=== PATIENT | male | born 1980 | race Caucasian/White ===

== ENCOUNTER 2018-08-30 21:41 | Emergency (ER) | payer BC ==
[~2018-08-30] VITALS: Ht 193 cm; Wt 108.9 kg
--- OUTSIDE RECORDS SUMMARY | 2018-08-30 21:44 | XMS REPORT ---
Author Author [facility] Address Unknown Phone Unavailable Care Team Providers Care Information Technology Account Manager Name Role Phone DR MUMTAZ COLUNGA Unavailable Unavailable CALI CORTEZ Unavailable Unavailable PROVIDER, [facility] Unavailable Unavailable ANGY KAUR Unavailable Unavailable ERICK BRADLEY Unavailable Unavailable Problems This patient has no known problems. Allergies, Adverse Reactions, Alerts This patient has no known allergies or adverse reactions. Medications This patient has no known medications. Encounters Start Date/Time End Date/Time Encounter Type Admission Type Attending Clinicians Care Facility Care Department Encounter ID 2018-04-01 11:35:00 2018-04-01 12:20:00 Outpatient MUMTAZ RAE [facility] [id number] 2018-01-20 00:00:00 2018-01-21 00:00:00 Outpatient [facility] [id number] 2017-07-23 00:00:00 2017-07-23 00:00:00 Outpatient [facility] [id number] Results Test Description Test Time Test Comments Text Results Atomic Results Result Comments URINALYSIS W/O MICROSCOPICOW 2018-04-01 12:24:00 COLOR (test code=COLU) Yellow YELLOW CLARITY (test code=CLA) Clear CLEAR GLUCOSE UR (test code=UA GLUCOSE) Negative NEGATIVE BILI UR (test code=BILE) Negative NEGATIVE KETONES UR (test code=EUNICE) Trace NEGATIVE SP GRAVITY (test code=SPGR) 1.025 1.005-1.030 PH UR (test code=PH) 6.0 4.5-8.0 PROTEIN UR (test code=PU) Negative NEGATIVE NITRITE UR (test code=NITRITE) Negative NEGATIVE UROBIL UR (test code=GUROQ) 0.2 E.U./dL UROBIL UR (test code=GUROQC) UROBILINOGEN REFERENCE RANGE 0.2 - 1.0 EU/dL BLOOD UR (test code=UA BLOOD) Negative NEGATIVE LEUK ES UR (test code=LEUK) Negative NEGATIVE CHEM8+ i-STAT OW2018-04-01 12:16:00* Test Item Value Reference Range Comments SODIUM (test code=JIM) 140 mmol/L 138-146 POTASSIUM (test code=KI) 4.3 mmol/L 3.5-4.9 CHLORIDE (test code=CLI) 105 mmol/L 98-109 CA IONIZED (test code=ICAI) 1.27 mmol/L 1.12-1.32 GLUCOSE (test code=GLUI) 180 mg/dL 75-100 TCO2 (test code=TCO2) 24 mmol/L 24-29 BUN (test code=BUN1) 18 mg/dL 8-26 CREATININE (test code=CREAI) 1.0 mg/dL 0.6-1.3 ANION GAP (test code=GANG) 16.0 mmol/L HGB (test code=MHB) 13.9 g/dL 12.0-17.0 HCT (test code=MHCT) 41.0 % 38.0-51.0 CBC (INCLUDES AUTOMATED DIFFERENTIAL) *2018-04-01 12:14:00* Test Item Value Reference Range Comments WBC (test code=WBC) 6.2 10\S\3/uL 4.5-11.0 RBC (test code=RBC) 4.74 10\S\6/uL 4.30-5.70 HGB (test code=HBG) 14.1 g/dL 14.0-18.0 HCT (test code=HCT) 42.7 % 35.0-46.0 MCV (test code=MCV) 90.0 fL 80.0-94.0 MCH (test code=MCH) 29.7 pg 27.0-31.0 MCHC (test code=MCHC) 33.0 g/dL 32.0-36.0 RDW (test code=RDW) 13.5 % 11.5-14.5 PLT (test code=PLT) 268 10\S\3/uL 130-400 MPV (test code=OMPV) 7.8 fL 6.2-10.2 NEUTROP # (test code=NE#) 4.0 10\S\3/uL 2.0-8.0 LYMPH # (test code=LY#) 1.4 10\S\3/uL 1.2-4.0 MID # (test code=GMID#) 0.8 10\S\3/uL 0.0-1.1 GRA % (test code=GRA%) 64.5 % 35.0-73.0 LYMPH % (test code=GLY%) 22.7 % 20.0-55.0 MID % (test code=GMID%) 12.8 % 0.0-10.0 CT ABDOMEN AND PELVIS W/O CONTRAST *OW*2018-04-01 12:07:30CT abdomen and pelvis with contrastLocation Code: [id number] HISTORY:Right flank painCOMPARISON: NoneTechnique: Helical CT of the abdomen and pelvis was performed following theadministration of intravenous contrast. Thin section axial, sagittal andcoronal images were obtained. Automatic exposure control was utilized. T otalDLP: 1314.09 mGycmFINDINGS:The lung bases are clear. Postsurgical changes ar e apparent partial right nephrectomy are noted. There isno adjacent fluid collec tion or hematoma. The unenhanced liver, gallbladder,adrenal glands, left kidney, pancreas, and spleen are unremarkable.The unopacified loops of bowel demonstrate no focal thickening or dilatation.The appendix is visualized and is normal. T here is no free peritoneal air orfluid. The abdominal aorta is normal in caliber and contour. There is noretroperitoneal mass or fluid collection. The urinary bladder is unremarkable.There is no pelvic mass or fluid collection. The bones, skin, and surrounding soft tissues are unremarkable.IMPRESSION:1. Postsurgical c hanges along the lateral cortex of the right kidney with noevidence of complicat ion.2. Otherwise, no acute intra-abdominal or pelvic abnormality.Toxicology 2017-06-07 11:31:00* Test Item Value Reference Range Comments Toxicology (test code=LEONILA) Not Detected NotDetected Toxicology (test code=PCP) Not Detected NotDetected Toxicology (test code=COCN) Detected NotDetected Toxicology (test code=METHAMPU) Not Detected NotDetected Toxicology (test code=OPIA) Not Detected NotDetected Toxicology (test code=AMPHU) Not Detected NotDetected Toxicology (test code=CAREY) Not Detected NotDetected Toxicology (test code=TRICY) Not Detected NotDetected Toxicology (test code=MTD) Not Detected NotDetected Toxicology (test code=CHRISTIANE) Not Detected NotDetected Toxicology (test code=OXYCOD) Not Detected NotDetected Toxicology (test code=PPX) Not Detected NotDetected Toxicology (test code=MTCUTOFF) The [employer] Profile- V Panel for Qualitative Drugs ofAbuse assays are for presumptive screening testing only.The drug class and detection limits are as follows:Drug Class Detection LimitAmphetamine 500 ng/mL*Barbiturates 200 ng/mLBenzodiazepines 150 ng/mL*Cocaine 150 ng/mL*Methamphetamine 500 ng/mL*Methadone 200 ng/mL*Opiates 100 ng/mL*Oxycodone 100 ng/mLPCP 25 ng/mLPropoxyphene 300 ng/mLTricyclic Antidepressants 300 ng/mLCannabinoids (THC) 50 ng/mLTests which yield a presumptive positive result must betested using a more specific alternate chemical method inorder to obtain a confirmed analytical result. Additionalconfirmation and identification may be ordered on a routinebasis, if desired. Presumptive positive urines are held fortwo weeks. What drug is suspected? cocaineUrine Source: Urine [id number] 09:28:00* Test Item Value Reference Range Comments Chemistry (test code=CHOL) 182 mg/dl < 200 Desired Chemistry (test code=TRIG) 113 mg/dL Less than 150 Chemistry (test code=HDL) 42 mg/dL >60 Neg Risk Adult HDL levels in terms of risk for Coronary Heart Disease > or Equal to 60 mg/dL Negative Risk < 40 mg/dL HIGH Risk Chemistry (test code=LDL) 117 mg/dL Levels in terms of risk for coronary heart disease: Desirable: Less than 130 mg/dL Borderline High Risk: 130 - 159 mg/dL High Risk: Greater than 160 mg/dL Chemistry (test code=CRISK) 4.3 Less than 4.5 Adult levels in terms of risk for Coronary Heart Disease: Dangerous Level: Greater than 14.3 High: 6.7 - 14.3 Average: 4.0 - 6.7 Below average: 2.7 - 4.0 Protection probable: Less than 2.7 [id number] 07:38:00* Test Item Value Reference Range Comments Chemistry (test code=TROPI-T) 0.027 ng/mL < 0.028 Reference Range 0.00 - 0.028 ng/mL Negative 0.029 - 0.29 ng/mL Indeterminate Greater or Equal to 0.3 ng/mL Strongly suggests [place] [id number] 05:03:00* Test Item Value Reference Range Comments Chemistry (test code=TROPI-T) 0.031 ng/mL < 0.028 Reference Range 0.00 - 0.028 ng/mL Negative 0.029 - 0.29 ng/mL Indeterminate Greater or Equal to 0.3 ng/mL Strongly suggests [place] Chemistry - BNP, HgbA1c, [id number] 02:00:00* Test Item Value Reference Range Comments Chemistry - BNP, HgbA1c, PTHi (test code=BNP) 89.9 pg/mL 0-100 [id number] 01:46:00* Test Item Value Reference Range Comments Chemistry (test code=NA-T) 138 mmol/L 136-145 Chemistry (test code=K-T) 4.2 mmol/L 3.5-5.1 Chemistry (test code=CL) 107 mmol/L 98-107 Chemistry (test code=CO2) 22 mmol/L 22-29 Chemistry (test code=ANGP) 13 mmol/L 10-20 Chemistry (test code=BUN) 7 mg/dL 8.9-20.6 Chemistry (test code=CREATT) 1.06 mg/dL 0.6-1.3 Chemistry (test code=EGFRMDRD) 80 Reference Range for Estimated GFR: Greater than 90 mL/min/1.73 m2NOTE:The MDRD equation has not been validated for use with theelderly (over 70 years of age), women, patien tswith serious comorbid condition or persons with extremes ofbody size, muscle mass, or nutritional status. Chemistry (test code=GLU-T) 89 mg/dL 70-105 Chemistry (test code=CA) 9.4 mg/dL 7.8-10.44 Chemistry (test code=TBILI) 0.5 mg/dL 0.2-1.2 Chemistry (test code=TP) 7.2 g/dL 6.0-8.3 Chemistry (test code=ALB) 4.3 g/dL 3.5-5.0 Chemistry (test code=GLOB) 2.9 g/dL 2.4-3.5 Chemistry (test code=AG) 1.5 g/dL 1.2-2.2 Chemistry (test code=ALP) 54 U/L 40-150 Chemistry (test code=AST) 22 U/L 5-34 Chemistry (test code=ALT) 24 U/L 8-55 [id number] 01:35:00* Test Item Value Reference Range Comments Hematology (test code=WBCT) 8.7 thou/uL 4.8-10.8 Hematology (test code=RBCT) 4.93 mill/uL 4.70-6.10 Hematology (test code=HGBT) 14.9 g/dL 14.0-18.0 Hematology (test code=HCTT) 44.9 % 42.0-52.0 Hematology (test code=MCV) 91.0 fl 80.0-94.0 Hematology (test code=MCH) 30.2 pg 27.0-31.0 Hematology (test code=MCHC) 33.1 g/dL 32.0-36.0 Hematology (test code=RDW) 12.0 % 11.5-14.5 Hematology (test code=PLTT) 309 thou/uL 130-400 Hematology (test code=MPV) 6.7 fL 7.4-10.4 Hematology (test code=%NEUT) 53.0 % 42.0-75.0 Hematology (test code=%LYMPH) 34.7 % 21.0-51.0 Hematology (test code=%MONO) 9.1 % 0.0-10.0 Hematology (test code=%EOS) 1.8 % 0.0-10.0 Hematology (test code=%BASO) 1.4 % 0.0-1.0 Hematology (test code=NEUT#) 4.6 thou/uL 1.40-6.50 Hematology (test code=LYMPH#) 3.0 thou/uL 1.20-3.40 Hematology (test code=MONO#) 0.8 thou/uL 0.11-0.59 Hematology (test code=EOS#) 0.2 thou/uL 0.0-0.7 Hematology (test code=BASO#) 0.1 thou/uL 0.0-0.2 [id number] 01:14:00* Test Item Value Reference Range Comments Chemistry (test code=CKMBM-T) 5.9 ng/mL 0-6.6 Chemistry (test code=TROPI-T) 0.042 ng/mL < 0.028 Reference Range 0.00 - 0.028 ng/mL Negative 0.029 - 0.29 ng/mL Indeterminate Greater or Equal to 0.3 ng/mL Strongly suggests [place] [id number] 01:10:00* Test Item Value Reference Range Comments Chemistry (test code=CK) 276 U/L 30-200 Chemistry - BNP, HgbA1c, [id number] 20:29:00* Test Item Value Reference Range Comments Chemistry - BNP, HgbA1c, PTHi (test code=BNP) 40.2 pg/mL 0-100 [id number] 20:28:00* Test Item Value Reference Range Comments Chemistry (test code=CKMBM-T) 4.5 ng/mL 0-6.6 Chemistry (test code=TROPI-T) 0.027 ng/mL < 0.028 Reference Range 0.00 - 0.028 ng/mL Negative 0.029 - 0.29 ng/mL Indeterminate Greater or Equal to 0.3 ng/mL Strongly suggests [place] [id number] 20:24:00* Test Item Value Reference Range Comments Chemistry (test code=NA-T) 139 mmol/L 136-145 Chemistry (test code=K-T) 3.7 mmol/L 3.5-5.1 Chemistry (test code=CL) 105 mmol/L 98-107 Chemistry (test code=CO2) 23 mmol/L 22-29 Chemistry (test code=ANGP) 15 mmol/L 10-20 Chemistry (test code=BUN) 4 mg/dL 8.9-20.6 Chemistry (test code=CREATT) 1.04 mg/dL 0.6-1.3 Chemistry (test code=EGFRMDRD) 82 Reference Range for Estimated GFR: Greater than 90 mL/min/1.73 m2NOTE:The MDRD equation has not been validated for use with theelderly (over 70 years of age), women, patien tswith serious comorbid condition or persons with extremes ofbody size, muscle mass, or nutritional status. Chemistry (test code=GLU-T) 118 mg/dL 70-105 Chemistry (test code=CA) 9.4 mg/dL 7.8-10.44 Chemistry (test code=TBILI) 0.6 mg/dL 0.2-1.2 Chemistry (test code=TP) 7.6 g/dL 6.0-8.3 Chemistry (test code=ALB) 4.3 g/dL 3.5-5.0 Chemistry (test code=GLOB) 3.3 g/dL 2.4-3.5 Chemistry (test code=AG) 1.3 g/dL 1.2-2.2 Chemistry (test code=ALP) 60 U/L 40-150 Chemistry (test code=AST) 23 U/L 5-34 Chemistry (test code=ALT) 26 U/L 8-55 [id number] 20:24:00* Test Item Value Reference Range Comments Chemistry (test code=CK) 325 U/L 30-200 [id number] 20:03:00* Test Item Value Reference Range Comments Hematology (test code=WBCT) 7.9 thou/uL 4.8-10.8 Hematology (test code=RBCT) 5.10 mill/uL 4.70-6.10 Hematology (test code=HGBT) 15.5 g/dL 14.0-18.0 Hematology (test code=HCTT) 45.8 % 42.0-52.0 Hematology (test code=MCV) 89.7 fl 80.0-94.0 Hematology (test code=MCH) 30.3 pg 27.0-31.0 Hematology (test code=MCHC) 33.8 g/dL 32.0-36.0 Hematology (test code=RDW) 11.9 % 11.5-14.5 Hematology (test code=PLTT) 350 thou/uL 130-400 Hematology (test code=MPV) 6.3 fL 7.4-10.4 Hematology (test code=%NEUT) 60.6 % 42.0-75.0 Hematology (test code=%LYMPH) 29.6 % 21.0-51.0 Hematology (test code=%MONO) 8.6 % 0.0-10.0 Hematology (test code=%EOS) 0.5 % 0.0-10.0 Hematology (test code=%BASO) 0.8 % 0.0-1.0 Hematology (test code=NEUT#) 4.8 thou/uL 1.40-6.50 Hematology (test code=LYMPH#) 2.3 thou/uL 1.20-3.40 Hematology (test code=MONO#) 0.7 thou/uL 0.11-0.59 Hematology (test code=EOS#) 0.0 thou/uL 0.0-0.7 Hematology (test code=BASO#) 0.1 thou/uL 0.0-0.2 [id number] 18:47:00* Test Item Value Reference Range Comments Chemistry (test code=NA-T) 134 mmol/L 136-145 Chemistry (test code=K-T) 3.5 mmol/L 3.5-5.1 Chemistry (test code=CL) 100 mmol/L 98-107 Chemistry (test code=CO2) 23 mmol/L 22-29 Chemistry (test code=ANGP) 15 mmol/L 10-20 Chemistry (test code=BUN) 8 mg/dL 8.9-20.6 Chemistry (test code=CREATT) 1.00 mg/dL 0.6-1.3 Chemistry (test code=EGFRMDRD) 86 Reference Range for Estimated GFR: Greater than 90 mL/min/1.73 m2NOTE:The MDRD equation has not been validated for use with theelderly (over 70 years of age), women, patien tswith serious comorbid condition or persons with extremes ofbody size, muscle mass, or nutritional status. Chemistry (test code=GLU-T) 104 mg/dL 70-105 Chemistry (test code=CA) 9.9 mg/dL 7.8-10.44 Chemistry (test code=TBILI) 0.7 mg/dL 0.2-1.2 Chemistry (test code=TP) 8.5 g/dL 6.0-8.3 Chemistry (test code=ALB) 4.6 g/dL 3.5-5.0 Chemistry (test code=GLOB) 3.9 g/dL 2.4-3.5 Chemistry (test code=AG) 1.2 g/dL 1.2-2.2 Chemistry (test code=ALP) 64 U/L 40-150 Chemistry (test code=AST) 27 U/L 5-34 Chemistry (test code=ALT) 26 U/L 8-55 [id number] 18:43:00* Test Item Value Reference Range Comments Urinalysis (test code=UACLR) YELLOW Yellow Urinalysis (test code=UACLY) CLEAR Clear Urinalysis (test code=SPGR) 1.008 1.002-1.036 Urinalysis (test code=NIRAV) 6.5 5.0-9.0 Urinalysis (test code=UALEU) Negative Negative Urinalysis (test code=UANIT) Negative Negative Urinalysis (test code=PROUADIP) Negative mg/dL Neg-Trace Urinalysis (test code=GLUCU) Negative mg/dL Negative Urinalysis (test code=KETU) Negative mg/dL Negative Urinalysis (test code=UAUROB) 0.2 mg/dL 0.2-1.0 Urinalysis (test code=UABIL) Negative Negative Urinalysis (test code=UABLD) Negative Negative Urine Source: Urine [id number] 18:22:00* Test Item Value Reference Range Comments Hematology (test code=WBCT) 11.1 thou/uL 4.8-10.8 Hematology (test code=RBCT) 5.56 mill/uL 4.70-6.10 Hematology (test code=HGBT) 16.7 g/dL 14.0-18.0 Hematology (test code=HCTT) 50.2 % 42.0-52.0 Hematology (test code=MCV) 90.2 fl 80.0-94.0 Hematology (test code=MCH) 30.1 pg 27.0-31.0 Hematology (test code=MCHC) 33.4 g/dL 32.0-36.0 Hematology (test code=RDW) 11.6 % 11.5-14.5 Hematology (test code=PLTT) 347 thou/uL 130-400 Hematology (test code=MPV) 6.2 fL 7.4-10.4 Hematology (test code=%NEUT) 69.2 % 42.0-75.0 Hematology (test code=%LYMPH) 21.8 % 21.0-51.0 Hematology (test code=%MONO) 7.9 % 0.0-10.0 Hematology (test code=%EOS) 0.5 % 0.0-10.0 Hematology (test code=%BASO) 0.7 % 0.0-1.0 Hematology (test code=NEUT#) 7.7 thou/uL 1.40-6.50 Hematology (test code=LYMPH#) 2.4 thou/uL 1.20-3.40 Hematology (test code=MONO#) 0.9 thou/uL 0.11-0.59 Hematology (test code=EOS#) 0.1 thou/uL 0.0-0.7 Hematology (test code=BASO#) 0.1 thou/uL 0.0-0.2 [id number] 05:54:00* Test Item Value Reference Range Comments Chemistry (test code=NA-T) 139 mmol/L 136-145 Chemistry (test code=K-T) 4.2 mmol/L 3.5-5.1 Chemistry (test code=CL) 108 mmol/L 98-107 Chemistry (test code=CO2) 24 mmol/L 22-29 Chemistry (test code=ANGP) 11 mmol/L 10-20 Chemistry (test code=BUN) 7 mg/dL 8.9-20.6 Chemistry (test code=CREATT) 1.07 mg/dL 0.6-1.3 Chemistry (test code=EGFRMDRD) 79 Reference Range for Estimated GFR: Greater than 90 mL/min/1.73 m2NOTE:The MDRD equation has not been validated for use with theelderly (over 70 years of age), women, patien tswith serious comorbid condition or persons with extremes ofbody size, muscle mass, or nutritional status. Chemistry (test code=GLU-T) 99 mg/dL 70-105 Chemistry (test code=CA) 9.3 mg/dL 7.8-10.44 [id number] 05:54:00* Test Item Value Reference Range Comments Chemistry (test code=CK) 477 U/L 30-200 [id number] 06:14:00* Test Item Value Reference Range Comments Chemistry (test code=NA-T) 141 mmol/L 136-145 Chemistry (test code=K-T) 4.3 mmol/L 3.5-5.1 Chemistry (test code=CL) 109 mmol/L 98-107 Chemistry (test code=CO2) 26 mmol/L 22-29 Chemistry (test code=ANGP) 10 mmol/L 10-20 Chemistry (test code=BUN) 9 mg/dL 8.9-20.6 Chemistry (test code=CREATT) 1.13 mg/dL 0.6-1.3 Chemistry (test code=EGFRMDRD) 74 Reference Range for Estimated GFR: Greater than 90 mL/min/1.73 m2NOTE:The MDRD equation has not been validated for use with theelderly (over 70 years of age), women, patien tswith serious comorbid condition or persons with extremes ofbody size, muscle mass, or nutritional status. Chemistry (test code=GLU-T) 97 mg/dL 70-105 Chemistry (test code=CA) 8.9 mg/dL 7.8-10.44 [id number] 06:14:00* Test Item Value Reference Range Comments Chemistry (test code=CK) 673 U/L 30-200 [id number] 06:14:00* Test Item Value Reference Range Comments Chemistry (test code=CHOL) 187 mg/dl < 200 Desired Chemistry (test code=TRIG) 168 mg/dL Less than 150 Chemistry (test code=HDL) 36 mg/dL >60 Neg Risk Adult HDL levels in terms of risk for Coronary Heart Disease > or Equal to 60 mg/dL Negative Risk < 40 mg/dL HIGH Risk Chemistry (test code=LDL) 117 mg/dL Levels in terms of risk for coronary heart disease: Desirable: Less than 130 mg/dL Borderline High Risk: 130 - 159 mg/dL High Risk: Greater than 160 mg/dL Chemistry (test code=CRISK) 5.2 Less than 4.5 Adult levels in terms of risk for Coronary Heart Disease: Dangerous Level: Greater than 14.3 High: 6.7 - 14.3 Average: 4.0 - 6.7 Below average: 2.7 - 4.0 Protection probable: Less than 2.7 Cuqrvkeezw4062-00-12 05:53:00* Test Item Value Reference Range Comments Hematology (test code=WBCT) 7.7 thou/uL 4.8-10.8 Hematology (test code=RBCT) 4.17 mill/uL 4.70-6.10 Hematology (test code=HGBT) 12.8 g/dL 14.0-18.0 Hematology (test code=HCTT) 38.8 % 42.0-52.0 Hematology (test code=MCV) 93.1 fl 80.0-94.0 Hematology (test code=MCH) 30.7 pg 27.0-31.0 Hematology (test code=MCHC) 33.0 g/dL 32.0-36.0 Hematology (test code=RDW) 12.2 % 11.5-14.5 Hematology (test code=PLTT) 274 thou/uL 130-400 Hematology (test code=MPV) 6.8 fL 7.4-10.4 Hematology (test code=%NEUT) 42.5 % 42.0-75.0 Hematology (test code=%LYMPH) 40.2 % 21.0-51.0 Hematology (test code=%MONO) 12.1 % 0.0-10.0 Hematology (test code=%EOS) 4.1 % 0.0-10.0 Hematology (test code=%BASO) 1.1 % 0.0-1.0 Hematology (test code=NEUT#) 3.3 thou/uL 1.40-6.50 Hematology (test code=LYMPH#) 3.1 thou/uL 1.20-3.40 Hematology (test code=MONO#) 0.9 thou/uL 0.11-0.59 Hematology (test code=EOS#) 0.3 thou/uL 0.0-0.7 Hematology (test code=BASO#) 0.1 thou/uL 0.0-0.2 [id number] 19:45:00* Test Item Value Reference Range Comments Chemistry (test code=TROPI-T) 0.056 ng/mL < 0.028 Reference Range 0.00 - 0.028 ng/mL Negative 0.029 - 0.29 ng/mL Indeterminate Greater or Equal to 0.3 ng/mL Strongly suggests [place] Ngxodxjhs0640-35-14 17:06:00* Test Item Value Reference Range Comments Chemistry (test code=TROPI-T) 0.063 ng/mL < 0.028 Reference Range 0.00 - 0.028 ng/mL Negative 0.029 - 0.29 ng/mL Indeterminate Greater or Equal to 0.3 ng/mL Strongly suggests [place] [id number] 15:28:00* Test Item Value Reference Range Comments Toxicology (test code=LEONILA) Not Detected NotDetected Toxicology (test code=PCP) Not Detected NotDetected Toxicology (test code=COCN) Detected NotDetected Toxicology (test code=METHAMPU) Not Detected NotDetected Toxicology (test code=OPIA) Not Detected NotDetected Toxicology (test code=AMPHU) Not Detected NotDetected Toxicology (test code=CAREY) Not Detected NotDetected Toxicology (test code=TRICY) Not Detected NotDetected Toxicology (test code=MTD) Not Detected NotDetected Toxicology (test code=CHRISTIANE) Not Detected NotDetected Toxicology (test code=OXYCOD) Not Detected NotDetected Toxicology (test code=PPX) Not Detected NotDetected Toxicology (test code=MTCUTOFF) The [employer] Profile- V Panel for Qualitative Drugs ofAbuse assays are for presumptive screening testing only.The drug class and detection limits are as follows:Drug Class Detection LimitAmphetamine 500 ng/mL*Barbiturates 200 ng/mLBenzodiazepines 150 ng/mL*Cocaine 150 ng/mL*Methamphetamine 500 ng/mL*Methadone 200 ng/mL*Opiates 100 ng/mL*Oxycodone 100 ng/mLPCP 25 ng/mLPropoxyphene 300 ng/mLTricyclic Antidepressants 300 ng/mLCannabinoids (THC) 50 ng/mLTests which yield a presumptive positive result must betested using a more specific alternate chemical method inorder to obtain a confirmed analytical result. Additionalconfirmation and identification may be ordered on a routinebasis, if desired. Presumptive positive urines are held fortwo weeks. Urine Source: Urine [id number] 15:22:00* Test Item Value Reference Range Comments Urinalysis (test code=UACLR) YELLOW Yellow Urinalysis (test code=UACLY) CLEAR Clear Urinalysis (test code=SPGR) 1.002 1.002-1.036 Urinalysis (test code=NIRAV) 7.5 5.0-9.0 Urinalysis (test code=UALEU) Negative Negative Urinalysis (test code=UANIT) Negative Negative Urinalysis (test code=PROUADIP) Negative mg/dL Neg-Trace Urinalysis (test code=GLUCU) Negative mg/dL Negative Urinalysis (test code=KETU) Negative mg/dL Negative Urinalysis (test code=UAUROB) 0.2 mg/dL 0.2-1.0 Urinalysis (test code=UABIL) Negative Negative Urinalysis (test code=UABLD) Negative Negative Urine Source: Urine VoidedChemistry - [id number] 15:05:00* Test Item Value Reference Range Comments Chemistry - Specials (test code=TSH3) 0.4726 uIU/mL 0.35-4.94 [id number] 14:45:00* Test Item Value Reference Range Comments Chemistry (test code=PHOS) 2.6 mg/dL 2.3-4.7 [id number] 14:45:00* Test Item Value Reference Range Comments Chemistry (test code=MG) 1.8 mg/dL 1.6-2.6 [id number] 14:17:00* Test Item Value Reference Range Comments Chemistry (test code=CCCK) BHARATS1@1416 Chemistry (test code=CKMBM-T) 7.9 ng/mL 0-6.6 Critical value! Chemistry (test code=TROPI-T) 0.042 ng/mL < 0.028 Reference Range 0.00 - 0.028 ng/mL Negative 0.029 - 0.29 ng/mL Indeterminate Greater or Equal to 0.3 ng/mL Strongly suggests [place] [id number] 14:14:00* Test Item Value Reference Range Comments Chemistry (test code=NA-T) 133 mmol/L 136-145 Chemistry (test code=K-T) 3.9 mmol/L 3.5-5.1 Chemistry (test code=CL) 98 mmol/L 98-107 Chemistry (test code=CO2) 24 mmol/L 22-29 Chemistry (test code=ANGP) 15 mmol/L 10-20 Chemistry (test code=BUN) 10 mg/dL 8.9-20.6 Chemistry (test code=CREATT) 1.22 mg/dL 0.6-1.3 Chemistry (test code=EGFRMDRD) 68 Reference Range for Estimated GFR: Greater than 90 mL/min/1.73 m2NOTE:The MDRD equation has not been validated for use with theelderly (over 70 years of age), women, patien tswith serious comorbid condition or persons with extremes ofbody size, muscle mass, or nutritional status. Chemistry (test code=GLU-T) 124 mg/dL 70-105 Chemistry (test code=CA) 9.7 mg/dL 7.8-10.44 Chemistry (test code=TBILI) 0.4 mg/dL 0.2-1.2 Chemistry (test code=TP) 7.7 g/dL 6.0-8.3 Chemistry (test code=ALB) 4.3 g/dL 3.5-5.0 Chemistry (test code=GLOB) 3.4 g/dL 2.4-3.5 Chemistry (test code=AG) 1.3 g/dL 1.2-2.2 Chemistry (test code=ALP) 58 U/L 40-150 Chemistry (test code=AST) 30 U/L 5-34 Chemistry (test code=ALT) 29 U/L 8-55 [id number] 14:14:00* Test Item Value Reference Range Comments Chemistry (test code=CK) 1049 U/L 30-200 [id number] 14:14:00* Test Item Value Reference Range Comments Chemistry (test code=LIP) 54 U/L 8-78 [id number] 13:39:00* Test Item Value Reference Range Comments Hematology (test code=WBCT) 12.9 thou/uL 4.8-10.8 Hematology (test code=RBCT) 4.74 mill/uL 4.70-6.10 Hematology (test code=HGBT) 14.4 g/dL 14.0-18.0 Hematology (test code=HCTT) 43.1 % 42.0-52.0 Hematology (test code=MCV) 91.0 fl 80.0-94.0 Hematology (test code=MCH) 30.5 pg 27.0-31.0 Hematology (test code=MCHC) 33.5 g/dL 32.0-36.0 Hematology (test code=RDW) 11.9 % 11.5-14.5 Hematology (test code=PLTT) 331 thou/uL 130-400 Hematology (test code=MPV) 6.3 fL 7.4-10.4 Hematology (test code=%NEUT) 76.2 % 42.0-75.0 Hematology (test code=%LYMPH) 16.1 % 21.0-51.0 Hematology (test code=%MONO) 6.5 % 0.0-10.0 Hematology (test code=%EOS) 0.6 % 0.0-10.0 Hematology (test code=%BASO) 0.7 % 0.0-1.0 Hematology (test code=NEUT#) 9.8 thou/uL 1.40-6.50 Hematology (test code=LYMPH#) 2.1 thou/uL 1.20-3.40 Hematology (test code=MONO#) 0.8 thou/uL 0.11-0.59 Hematology (test code=EOS#) 0.1 thou/uL 0.0-0.7 Hematology (test code=BASO#) 0.1 thou/uL 0.0-0.2 [id number] 04:22:00* Test Item Value Reference Range Comments Chemistry (test code=TROPI-T) 0.038 ng/mL < 0.028 Reference Range 0.00 - 0.028 ng/mL Negative 0.029 - 0.29 ng/mL Indeterminate Greater or Equal to 0.3 ng/mL Strongly suggests [place] [id number] 02:00:00* Test Item Value Reference Range Comments Chemistry (test code=NA-T) 135 mmol/L 136-145 Chemistry (test code=K-T) 3.9 mmol/L 3.5-5.1 Chemistry (test code=CL) 98 mmol/L 98-107 Chemistry (test code=CO2) 25 mmol/L 22-29 Chemistry (test code=ANGP) 16 mmol/L 10-20 Chemistry (test code=BUN) 11 mg/dL 8.9-20.6 Chemistry (test code=CREATT) 1.33 mg/dL 0.6-1.3 Chemistry (test code=EGFRMDRD) 62 Reference Range for Estimated GFR: Greater than 90 mL/min/1.73 m2NOTE:The MDRD equation has not been validated for use with theelderly (over 70 years of age), women, patien tswith serious comorbid condition or persons with extremes ofbody size, muscle mass, or nutritional status. Chemistry (test code=GLU-T) 160 mg/dL 70-105 Chemistry (test code=CA) 9.7 mg/dL 7.8-10.44 Chemistry (test code=TBILI) 0.5 mg/dL 0.2-1.2 Chemistry (test code=TP) 8.5 g/dL 6.0-8.3 Chemistry (test code=ALB) 4.7 g/dL 3.5-5.0 Chemistry (test code=GLOB) 3.8 g/dL 2.4-3.5 Chemistry (test code=AG) 1.2 g/dL 1.2-2.2 Chemistry (test code=ALP) 61 U/L 40-150 Chemistry (test code=AST) 32 U/L 5-34 Chemistry (test code=ALT) 33 U/L 8-55 [id number] 01:58:00* Test Item Value Reference Range Comments Hematology (test code=WBCT) 9.6 thou/uL 4.8-10.8 Hematology (test code=RBCT) 5.10 mill/uL 4.70-6.10 Hematology (test code=HGBT) 15.7 g/dL 14.0-18.0 Hematology (test code=HCTT) 46.7 % 42.0-52.0 Hematology (test code=MCV) 91.5 fl 80.0-94.0 Hematology (test code=MCH) 30.8 pg 27.0-31.0 Hematology (test code=MCHC) 33.7 g/dL 32.0-36.0 Hematology (test code=RDW) 12.2 % 11.5-14.5 Hematology (test code=PLTT) 345 thou/uL 130-400 Hematology (test code=MPV) 7.0 fL 7.4-10.4 Hematology (test code=%NEUT) 69.9 % 42.0-75.0 Hematology (test code=%LYMPH) 21.1 % 21.0-51.0 Hematology (test code=%MONO) 7.5 % 0.0-10.0 Hematology (test code=%EOS) 0.8 % 0.0-10.0 Hematology (test code=%BASO) 0.8 % 0.0-1.0 Hematology (test code=NEUT#) 6.7 thou/uL 1.40-6.50 Hematology (test code=LYMPH#) 2.0 thou/uL 1.20-3.40 Hematology (test code=MONO#) 0.7 thou/uL 0.11-0.59 Hematology (test code=EOS#) 0.1 thou/uL 0.0-0.7 Hematology (test code=BASO#) 0.1 thou/uL 0.0-0.2 [id number] 01:41:00* Test Item Value Reference Range Comments Chemistry (test code=CCCK) [id number] Chemistry (test code=CKMBM-T) 7.8 ng/mL 0-6.6 Critical value! Chemistry (test code=TROPI-T) 0.048 ng/mL < 0.028 Reference Range 0.00 - 0.028 ng/mL Negative 0.029 - 0.29 ng/mL Indeterminate Greater or Equal to 0.3 ng/mL Strongly suggests [place]
== END 2018-08-30 22:40 | disposition home or self-care (01) ==
LOC: FSED 21:41
DX: K62.5 Hemorrhage of anus and rectum (principal); K60.0 Acute anal fissure; Z85.53 Personal history of malignant neoplasm of renal pelvis; F17.210 Nicotine dependence, cigarettes, uncomplicated
CPT/HCPCS: 99283

== ENCOUNTER 2019-07-31 16:18 | Emergency (ER) | payer BC ==
[~2019-07-31] VITALS: Ht 193 cm; Wt 120.9 kg
[2019-07-31] MEDS ORDERED: KETOROLAC TROMETHAMINE 60 MG/2 ML VIAL IM ONE (16:45)
[2019-07-31] MEDS ORDERED: ACETAMINOPHEN 325 MG TAB PO ONE (16:45)
[2019-07-31] MEDS ORDERED: KETOROLAC TROMETHAMINE 60 MG/2 ML VIAL ONE (17:01)
[2019-07-31] MEDS ORDERED: ACETAMINOPHEN 325 MG TAB ONE (17:02)
--- NOTE | 2019-07-31 17:57 | Diagnostic Imaging Report ---
CT BRAIN [facility] HISTORY: Status post slip and fall COMPARISON: None. TECHNIQUE: Noncontrast axial scans were obtained from skull base to the vertex. Coronal and sagittal reconstructions obtained from the axial data. One or more of the following dose reduction techniques were used: Automated exposure control, adjustment of the mA and/or kV according to patient size, and/or utilization of iterative reconstruction technique. DISCUSSION: Scalp/Skull: Convex hyperdense 4.9 cm superior biparietal scalp hematoma with mild adjacent fat stranding (series 401 image 58). No skull fracture. Brain sulci: Appropriate for patient's age. Ventricles: Normal in size and configuration. No hydrocephalus. Extra-axial spaces: A focal cleft with CSF density extends from the quadrigeminal cistern posteriorly along the left superior cerebellar hemisphere (series 2 images 12-14), may represent a tiny arachnoid cyst. Parenchyma: No abnormal density No mass, hemorrhage, or large vascular territory acute infarct. Dural sinuses: No abnormal densities. Sellar/Suprasellar region: Intact. No masses. Skull base: Intact. Incidental findings: Mild mucosal thickening in bilateral ethmoid sinuses. IMPRESSION: 1. No acute intracranial abnormalities or skull fracture. 2. Minimal biparietal scalp hematoma. This preliminary report was issued by Dr. El Dukes M.D. neuroradiology fellow at 1755 hours on 07/31/2019. I have reviewed the images and agree with findings in the preliminary report. Signed by: Dr. Trixie Foreman M.D. on 07/31/2019 8:16 PM
--- NOTE | 2019-07-31 18:03 | Diagnostic Imaging Report ---
CT C-SPINE W/O - HOPD HISTORY: 39-year-old male status post slip and fall. COMPARISON: None. TECHNIQUE: CT of the cervical spine without contrast. Sagittal and coronal reformations were created. One or more of the following dose reduction techniques were used: Automated exposure control, adjustment of the mA and/or kV according to patient size, and/or utilization of iterative reconstruction technique. FINDINGS: Evaluation is slightly limited secondary to imaging artifact in the lower cervical spine due to beam hardening and photon starvation. Cervical lordosis is preserved. There is no scoliosis or subluxation. No fractures, compression deformity, or destructive osseous lesions are seen. Mild degenerative disc changes at C4-C5, C5-C6 and C6-C7 with posterior disc osteophyte complexes at C5-C6. No canal stenosis. C4-C5: Mild bilateral foraminal stenosis due to facet and uncovertebral arthrosis. C5-C6: Mild left foraminal stenosis due to facet and uncovertebral arthrosis C7-T1: Mild right foraminal stenosis due to uncovertebral arthrosis. The craniocervical junction is intact. No gross spinal canal masses are seen. The paravertebral and paraspinal soft tissues are unremarkable. Lung apices are unremarkable specifically no apical pneumothoraces. IMPRESSION: 1. No acute osseous abnormalities in spite of limitations from imaging artifact. 2. Mild cervical spondylosis as above. 3. Ligament, spinal cord and or vascular abnormalities cannot be excluded on the basis of this examination. This preliminary report was issued by Dr. El Dukes M.D. neuroradiology fellow at 1804 hours on 07/31/2019. A focal cleft with CSF density extends from the quadrigeminal cistern posteriorly along the left superior cerebellar hemisphere (series 2 images 12-14), may represent a tiny arachnoid cyst. Signed by: Dr. Trixie Foreman M.D. on 07/31/2019 8:21 PM
--- NOTE | 2019-07-31 18:11 | Diagnostic Imaging Report ---
CT LUMBAR SPINE WITHOUT-HOPD HISTORY: 39-year-old male who fell backwards while carrying a television set. COMPARISON: None. TECHNIQUE: Axial CT images of the lumbar spine were obtained without contrast. Coronal and sagittal reconstructions obtained from the axial data. One or more of the following dose reduction techniques were used: Automated exposure control, adjustment of the mA and/or kV according to patient size, and/or utilization of iterative reconstruction technique. DISCUSSION: There are 5 nonrib-bearing lumbar vertebral bodies. Straightening of normal lumbar lordosis is either positional or due to muscle spasm. There is no significant scoliosis or subluxation. No fracture, compression deformity, or destructive osseous lesion is seen. No gross spinal canal mass is seen. The paravertebral and paraspinal soft tissues are unremarkable. The disc spaces are preserved. L1-L2: No gross canal or foraminal stenosis. L2-L3: No gross canal or foraminal stenosis. L3-L4: No gross canal or foraminal stenosis. L4-L5: No gross canal or foraminal stenosis. L5-S1: No gross canal or foraminal stenosis. IMPRESSION: No acute osseous abnormalities. Ligament, spinal cord and or vascular abnormalities cannot be excluded on the basis of this examination This preliminary report was issued by Dr. El Dukes M.D. neuroradiology fellow at 1810 hours on 07/31/2019. I have reviewed the images and agree with findings in the preliminary report. Signed by: Dr. Trixie Foreman M.D. on 07/31/2019 8:24 PM
[2019-07-31] MEDS ORDERED: ROBAXIN-750750 MG PO (18:24)
[2019-07-31 18:42] VITALS: BP 121/79
== END 2019-07-31 18:39 | disposition home or self-care (01) ==
LOC: FSED 16:18
DX: S00.83XA Contusion of other part of head, initial encounter (principal); S39.012A Strain of muscle, fascia and tendon of lower back, initial encounter; S33.5XXA Sprain of ligaments of lumbar spine, initial encounter; R51 Headache; W01.0XXA Fall on same level from slipping, tripping and stumbling without subsequent striking against object, initial encounter; Y92.008 Other place in unspecified non-institutional (private) residence as the place of occurrence of the external cause; E11.9 Type 2 diabetes mellitus without complications
CPT/HCPCS: 70450; 72125; 72131; 99283; J1885

== ENCOUNTER 2019-11-09 12:27 | Emergency (ER) | payer BC ==
[~2019-11-09] VITALS: Ht 193 cm; Wt 115.2 kg
[~2019-11-09 12:27] MED LIST: ROBAXIN-750750 MG PO
--- OUTSIDE RECORDS SUMMARY | 2019-11-09 12:32 | XMS REPORT ---
Author Author [facility] t [facility] Address [address] [place] [address] Phone Unavailable Care Team Providers Care Quality Head Name Role Phone NONSTAFF PCP Unavailable Merlyn MIKE Attphys Unavailable PROVIDER, TEMP ED Attphys Unavailable DR MUMTAZ COLUNGA Attphys Unavailable CALI CORTEZ Attphys Unavailable ANGY KAUR Attphys Unavailable ERICK BRADLEY Attphys Unavailable DR MUMTAZ COLUNGA Admphys Unavailable CALI CORTEZ Admphys Unavailable ANGY KAUR Admphys Unavailable Payers Payer Name Policy Type Policy Number Effective Date Expiration Date Andrews tobin [facility] Exchange [id number] 2019 00:00:00 [facility] [id number] 2018 00:00:00 [facility] Problems This patient has no known problems. Allergies, Adverse Reactions, Alerts Allergy Name Allergy Type Status Severity Reaction(s) Onset Date Inacti ve Date Treating Clinician Comments Source No Known Allergies DA Active U 2019-10-06 00:00:00 [facility] No Known Contrast Allergies DA Active U 2004-01-16 00:00: 00 [facility] No Known Drug Allergies DA Active U 2004-01-16 00:00:00 [facility] No Known Food Allergies DA Active U 2004-01-16 00:00:00 [facility] No Known Other Allergies DA Active U 2004-01-16 00:00:00 [facility] Medications Ordered Medication Name Filled Medication Name Start Date Stop Da te Current Medication? Ordering Clinician Indication Dosage Frequency Signature (SIG) Comments Components Source Methocarbamol (Robaxin-750) 750 Mg Tablet Methocarbamo l (Robaxin-750) 750 Mg Tablet 2019-07-31 00:00:00 Yes Yuniel Mike Md 750 Every 6 Hours as needed for Musc Spasms [facility] Procedures This patient has no known procedures. Encounters Start Date/Time End Date/Time Encounter Type Admission Type Attendi [facility] Care Department Encounter ID Source 2019-07-31 16:18:00 2019-07-31 18:39:00 Departed Emergency Room 1 YUNIEL MIKE [id number] [facility] 2018-12-11 05:10:00 2018-12-11 05:10:00 Emergency E [facility] [address] [facility] 2018-08-30 21:41:00 2018-08-30 21:41:00 Registered Emergency Room [facility] [id number] [facility] 2018-04-01 11:35:00 2018-04-01 12:20:00 Outpatient [facility] [id number] [facility] 2018-01-20 00:00:00 2018-01-21 00:00:00 Outpatient [facility] [id number] [facility] 2017-07-23 00:00:00 2017-07-23 00:00:00 [facility] [id number] [facility] Results Test Description Test Time Test Comments Results Result Comments Source - XR TIBIA/FIBULA 2 V LT 2019-10-06 01:42:00 FA X: Arnel Heard MD [phone] [place]: St: REG -- Name: BRODIE BURROUGHS [facility] : 1980 Age/S: 39/M [address] [place] [address] Blvd Unit #: [id number] Loc: [address] [address] Phys: Arnel Franco MD Acct: [id number] Dis Date: Status: REG ER PHONE #: [phone] Exam Date: 10/06/2019 014 FAX #: [phone] Reason: pain with trauma EXAMS: CPT CODE: [id number] XR TIBIA/FIBULA 2 [place] LT [address] Study: - XR TIBIA/FIBULA 2 V LT 10/06/2019 1:24 AM Patient Name: BRODIE BURROUGHS MR: [id number] : 1980; Age: 39 years y/o Male Ordering Physician: Arnel Franco MD Clinical Indication: Left tibia and fibula pain related to a laceration above the ankle. Comparison: None LEFT TIBIA AND FIBULA, 2 views: IMPRESSION: No acute fracture, dislocation, or suspicious focal osseous lesion. Small bone island distally in the left tibia on the lateral image. Mild soft tissue thickening adjacent to the ankle, greatest anteriorly. No radiopaque foreign body is appreciated. Subcentimeter density seen overlying the mid left fibula on the last lateral image is not seen on the remaining images covering the same region suggesting artifact. SL: TPAINTER-H at 0142 Reported and signed by: Moshe Lopez M.D. CC: Arnel Franco MD Technologist: RT Terrance(Merlyn) Trnscrd Date/Time/By: 10/06/2019 (014) : By: [email or web address] Orig Print D/T: S: 10/06/2019 (0145) PAGE [address] LUMBAR SPINE WITHOUT-HOPD 2019-07-31 18:03:00 [place] [address] Patient Name: BRODIE BURROUGHS MR #: [id number] : 1980 Age/Sex: 39/M Req #: [id number] Adm Physician: Ordered by: YUNIEL MIKE MD Report #: [id number] Location: [facility] Room/Bed: Procedure: [id number] HOPD/CT LUMBAR SPINE WITHOUT-HOPD Exam Date: 07/31/19 Exam Time: 1720 REPORT STATUS: Signed CT LUMBAR SPINE WITHOUT-HOPD HISTORY: 39-year-old male who fell backwards while carrying a television set. COMPARISON: None. TECHNIQUE: Axial CT images of the lumbar spine were obtained without contrast. Coronal and sagittal reconstructions obtained from the axial data. One or more of the following dose reduction techniques were used: Automated exposure control, adjustment of the mA and/or kV according to patient size, and/or utilization of iterative reconstruction technique. DISCUSSION: There are 5 nonrib-bearing lumbar vertebral bodies. Straightening of normal lumbar lordosis is either positional or due to muscle spasm. There is no significant scoliosis or subluxation. No fracture, compression deformity, or destructive osseous lesion is seen. No gross spinal canal mass is seen. The paravertebral and paraspinal soft tissues are unremarkable. The disc spaces are preserved. L1-L2: No gross canal or foraminal stenosis. L2-L3: No gross canal or foraminal stenosis. L3-L4: No gross canal or foraminal stenosis. L4-L5: No gross canal or foraminal stenosis. L5-S1: No gross canal or foraminal stenosis. IMPRESSION: No acute osseous abnormalities. Ligament, spinal cord and or vascular abnormalities cannot be excluded on the basis of this examination This preliminary report was issued by Dr. El Dukes M.D. neuroradiology fellow at 1810 hours on 07/31/2019. I have reviewed the images and agree with findings in the preliminary report. Signed by: Dr. Trixie Foreman M.D. on 07/31/2019 8:24 PM Dictated By: TRIXIE FOREMAN MD 23 Transcribed By: MARIAN on 07/31/192023 COPY TO: YUNIEL MIKE MD CT C-SPINE W/O - HOPD 2019-07-31 17:57:00 [facility] [address] [place] [address] Patient Name: BRODIE BURROUGHS MR #: [id number] : 1980 Age/Sex: 39/M Req #: [id number] Adm Physician: Ordered by: YUNIEL MIKE MD Report #: [id number] Location: [facility] Room/Bed: Procedure: [id number] HOPD/CT C-SPINE W/O - HOPD Exam Date: 07/31/19 Exam Time: 1709 REPORT STATUS: Signed CT C-SPINE W/O - HOPD HISTORY: 39-year-old male status post slip and fall. COMPARISON: None. TECHNIQUE: CT of the cervical spine without contrast. Sagittal and coronal reformations were created. One or more of the following dose reduction techniques were used: Automated exposure control, adjustment of the mA and/or kV according to patient size, and/or utilization of iterative reconstruction technique. FINDINGS: Evaluation is slightly limited secondary to imaging artifact in the lower cervical spine due to beam hardening and photon starvation. Cervical lordosis is preserved. There is no scoliosis or subluxation. No fractures, compression deformity, or destructive osseous lesions are seen. Mild degenerative disc changes at C4-C5, C5-C6 and C6-C7 with posterior disc osteophyte complexes at C5-C6. No canal stenosis. C4-C5: Mild bilateral foraminal stenosis due to facet and uncovertebral arthrosis. C5-C6: Mild left foraminal stenosis due to facet and uncovertebral arthrosis C7-T1: Mild right foraminal stenosis due to uncovertebral arthrosis. The craniocervical junction is intact. No gross spinal canal masses are seen. The paravertebral and paraspinal soft tissues are unremarkable. Lung apices are unremarkable specifically no apical pneumothoraces. IMPRESSION: 1. No acute osseous abnormalities in spite of limitations from imaging artifact. 2. Mild cervical spondylosis as above. 3. Ligament, spinal cord and or vascular abnormalities cannot be excluded on the basis of this examination. This preliminary report was issued by Dr. El Dukes M.D. neuroradiology fellow at 1804 hours on 07/31/2019. A focal cleft with CSF density extends from the quadrigeminal cistern posteriorly along the left superior cerebellar hemisphere (series 2 images 12-14), may represent a tiny arachnoid cyst. Signed by: Dr. Trixie Foreman M.D. on 07/31/2019 8:21 PM Dictated By: TRIXIE FOREMAN MD 20 Transcribed By: MARIAN on 07/31/192020 COPY TO: YUNIEL MIKE MD CT BRAIN WO-HOPD 2019-07-31 17:39:00 [place] [address] Patient Name: BRODIE BURROUGHS MR #: [id number] : 1980 Age/Sex: 39/M Req #: [id number] Adm Physician: Ordered by: YUNIEL MIKE MD Report #: [id number] Location: [facility] Room/Bed: Procedure: [id number] HOPD/CT BRAIN WO-HOPD Exam Date: 02/21/20 Exam Time: 1707 REPORT STATUS: Signed CT BRAIN [facility] HISTORY: Status post slip and fall COMPARISON: None. TECHNIQUE: Noncontrast axial scans were obtained from skull base to the vertex. Coronal and sagittal reconstructions obtained from the axial data. One or more of the following dose reduction techniques were used: Automated exposure control, adjustment of the mA and/or kV according to patient size, and/or utilization of iterative reconstruction technique. DISCUSSION: Scalp/Skull: Convex hyperdense 4.9 cm superior biparietal scalp hematoma with mild adjacent fat stranding (series 401 image 58). No skull fracture. Brain sulci: Appropriate for patient's age. Ventricles: Normal in size and configuration. No hydrocephalus. Extra-axial spaces: A focal cleft with CSF density extends from the quadrigeminal cistern posteriorly along the left superior cerebellar hemisphere (series 2 images 12-14), may represent a tiny arachnoid cyst. Parenchyma: No abnormal density No mass, hemorrhage, or large vascular territory acute infarct. Dural sinuses: No abnormal densities. Sellar/Suprasellar region: Intact. No masses. Skull base: Intact. Incidental findings: Mild mucosal thickening in bilateral ethmoid sinuses. IMPRESSION: 1. No acute intracranial abnormalities or skull fracture. 2. Minimal biparietal scalp hematoma. This preliminary report was issued by Dr. El Dukes M.D. neuroradiology fellow at 1755 hours on 07/31/2019. I have reviewed the images and agree with findings in the preliminary report. Signed by: Dr. Trixie Foreman M.D. on 07/31/2019 8:16 PM Dictated By: SA KESHAWN FOREMAN MD 15 Transcribed By: MARIAN on 07/31/192015 COPY TO: YUNIEL MIKE MD Chemistry 2018-12-19 07:27:00 Test Item Chemistry (test code = ETOH) 64 mg/dL Less than 10 H The pharmacological response to blood alcohol levels mayvary from individual to individual. Negative: Less than 10 mg/dL Toxic: 50 - 100 mg/dL Depression of [employer]IRY FARM WORKER: Greater than 100 mg/dL Fatalities reported: Greater than 400 mg/dL [id number] 07:03:00* Test Item Value Reference Range Interpretation Comments Toxicology (test code = LEONILA) Not Detected NotDetected Toxicology (test code = PCP) Not Detected NotDetected Toxicology (test code = COCN) Detected NotDetected A Toxicology (test code = METHAMPU) Not Detected NotDetected Toxicology (test code = OPIA) Not Detected NotDetected Toxicology (test code = AMPHU) Not Detected NotDetected Toxicology (test code = CAREY) Detected NotDetected A Toxicology (test code = TRICY) Not Detected NotDetected Toxicology (test code = MTD) Not Detected NotDetected Toxicology (test code = CHRISTIANE) Not Detected NotDetected Toxicology (test code = OXYCOD) Not Detected NotDetected Toxicology (test code = PPX) Not Detected NotDetected Toxicology (test code = MTCUTOFF) The Siterra Profile-V Panel for Qualitative Drugs ofAbuse assays are for presumptive screening testing only.The drug class and detection limits are as follows:Drug Class Detection LimitAmphetamine 500 ng/mL*Barbiturates 200 ng/mLBenzodiazepines 150 ng/mL*Cocaine 150 ng/mL*Methamphetamine 500 ng/mL*Methadone 200 ng/mL*Opiates 100 ng/mL*Oxycodone 100 ng/mLPCP 25 ng/mLPropoxyphene 300 ng/mLTricyclic Antidepressants 300 ng/mLCan nabinoids (THC) 50 ng/mLTests which yield a presumptive positive result must betested using a more specific alternate chemical method inorder to obtain a confirmed analytical result. Additionalconfirmation and identification may be ordered on a routinebasis, if desired. Presumptive positive urines are held fortwo weeks. Urine Source: Urine VoidedChemistry - [id number] 05:59:00* Test Item Value Reference Range Interpretation Comments Chemistry - Specials (test code = TSH3) 0.4760 uIU/mL 0.35-4.94 N [id number] 05:42:00* Test Item Value Reference Range Interpretation Comments Chemistry (test code = NA-T) 139 mmol/L 136-145 N Chemistry (test code = K-T) 3.8 mmol/L 3.5-5.1 N Chemistry (test code = CL) 107 mmol/L 98-107 N Chemistry (test code = CO2) 21 mmol/L 22-29 L Chemistry (test code = ANGP) 15 mmol/L 10-20 N Chemistry (test code = BUN) 12 mg/dL 8.9-20.6 N Chemistry (test code = CREATT) 1.37 mg/dL 0.7-1.3 H Chemistry (test code = EGFRMDRD) 59 Reference Range for Estimated GFR: Greater than 90 mL/min/1.73 m2NOTE:The MDRD equation has not been validated for use with theelderly (over 70 years of age), women, patien tswith serious comorbid condition or persons with extremes ofbody size, muscle mass, or nutritional status. Chemistry (test code = GLU-T) 139 mg/dL 70-105 H Chemistry (test code = CA) 10.0 mg/dL 7.8-10.44 N Chemistry (test code = TBILI-T) 0.4 mg/dL 0.2-1.2 N Chemistry (test code = TP) 8.0 g/dL 6.0-8.3 N Chemistry (test code = ALB) 4.7 g/dL 3.5-5.0 N Chemistry (test code = GLOB) 3.3 g/dL 2.4-3.5 N Chemistry (test code = AG) 1.4 g/dL 1.2-2.2 N Chemistry (test code = ALP) 61 U/L 40-150 N Chemistry (test code = AST) 33 U/L 5-34 N Chemistry (test code = ALT) 46 U/L 8-55 N Ewkvxcmts1957-16-03 05:42:00* Test Item Value Reference Range Interpretation Comments Chemistry (test code = CK) 354 U/L 30-200 H [id number] 05:42:00* Test Item Value Reference Range Interpretation Comments Chemistry (test code = ACET-T) Less than 6.0 mcg/mL 10.0-30.0 L Therapeutic Range: 10.0 - 30.0 ug/mLToxic Range: Possible toxicity: 150 - 200 ug/mL Probable toxicity: Greater than 200 ug/mL*IMPORTANT TESTING INFORMATION* The half-life of NAC is 2 hours. The total NAC clearanceis 5.6 hours for adults and 11 hours for Newborns. Testing acetaminophen levels prior to a reasonable timeframe for clearance can cause falsely decreasedacetaminophen levels. Chemistry (test code = ETOH) 95 mg/dL Less than 10 H The pharmacological response to blood alcohol levels mayvary from individual to individual. Negative: Less than 10 mg/dL Toxic: 50 - 100 mg/dL Depression of DAIRY FARM WORKER: Greater than 100 mg/dL Fatalities reported: Greater than 400 mg/dL Chemistry (test code = SALCY) Less than 8.0 mg/dL 15.0-30.0 L [id number] 05:18:00* Test Item Value Reference Range Interpretation Comments Hematology (test code = WBCT) 12.2 thou/uL 4.8-10.8 H Hematology (test code = RBCT) 4.99 mill/uL 4.70-6.10 N Hematology (test code = HGBT) 14.3 g/dL 14.0-18.0 N Hematology (test code = HCTT) 44.1 % 42.0-52.0 N Hematology (test code = MCV) 88.5 fL 78.0-98.0 N Hematology (test code = MCH) 28.6 pg 27.0-31.0 N Hematology (test code = MCHC) 32.4 g/dL 32.0-36.0 N Hematology (test code = RDW) 12.1 % 11.5-14.5 N Hematology (test code = PLTT) 353 thou/uL 130-400 N Hematology (test code = MPV) 6.7 fL 7.4-10.4 L Hematology (test code = %NEUT) 69.5 % 42.0-75.0 N Hematology (test code = %LYMPH) 22.4 % 21.0-51.0 N Hematology (test code = %MONO) 7.4 % 0.0-10.0 N Hematology (test code = %EOS) 0.2 % 0.0-10.0 N Hematology (test code = %BASO) 0.6 % 0.0-1.0 N Hematology (test code = NEUT#) 8.5 thou/uL 1.40-6.50 H Hematology (test code = LYMPH#) 2.7 thou/uL 1.20-3.40 N Hematology (test code = MONO#) 0.9 thou/uL 0.11-0.59 H Hematology (test code = EOS#) 0.0 thou/uL 0.0-0.7 N Hematology (test code = BASO#) 0.1 thou/uL 0.0-0.2 N URINALYSIS W/O MICROSCOPICOW2018-04-01 12:24:00* Test Item Value Reference Range Interpretation Comments COLOR (test code = COLU) Yellow YELLOW CLARITY (test code = CLA) Clear CLEAR GLUCOSE UR (test code = UA GLUCOSE) Negative NEGATIVE BILI UR (test code = BILE) Negative NEGATIVE KETONES UR (test code = EUNICE) Trace NEGATIVE SP GRAVITY (test code = SPGR) 1.025 1.005-1.030 PH UR (test code = PH) 6.0 4.5-8.0 PROTEIN UR (test code = PU) Negative NEGATIVE NITRITE UR (test code = NITRITE) Negative NEGATIVE UROBIL UR (test code = GUROQ) 0.2 E.U./dL UROBIL UR (test code = GUROQC) UROBILINOGEN REFE RENCE RANGE 0.2 - 1.0 EU/dL BLOOD UR (test code = UA BLOOD) Negative NEGATIVE LEUK ES UR (test code = LEUK) Negative NEGATIVE CHEM8+ i-STAT OW2018-04-01 12:16:00* Test Item Value Reference Range Interpretation Comments SODIUM (test code = JIM) 140 mmol/L 138-146 POTASSIUM (test code = KI) 4.3 mmol/L 3.5-4.9 CHLORIDE (test code = CLI) 105 mmol/L 98-109 CA IONIZED (test code = ICAI) 1.27 mmol/L 1.12-1.32 GLUCOSE (test code = GLUI) 180 mg/dL 75-100 H TCO2 (test code = TCO2) 24 mmol/L 24-29 BUN (test code = BUN1) 18 mg/dL 8-26 CREATININE (test code = CREAI) 1.0 mg/dL 0.6-1.3 ANION GAP (test code = GANG) 16.0 mmol/L HGB (test code = MHB) 13.9 g/dL 12.0-17.0 HCT (test code = MHCT) 41.0 % 38.0-51.0 CBC (INCLUDES AUTOMATED DIFFERENTIAL) *2018-04-01 12:14:00* Test Item Value Reference Range Interpretation Comments WBC (test code = WBC) 6.2 10\S\3/uL 4.5-11.0 RBC (test code = RBC) 4.74 10\S\6/uL 4.30-5.70 HGB (test code = HBG) 14.1 g/dL 14.0-18.0 HCT (test code = HCT) 42.7 % 35.0-46.0 MCV (test code = MCV) 90.0 fL 80.0-94.0 MCH (test code = MCH) 29.7 pg 27.0-31.0 MCHC (test code = MCHC) 33.0 g/dL 32.0-36.0 RDW (test code = RDW) 13.5 % 11.5-14.5 PLT (test code = PLT) 268 10\S\3/uL 130-400 MPV (test code = OMPV) 7.8 fL 6.2-10.2 NEUTROP # (test code = NE#) 4.0 10\S\3/uL 2.0-8.0 LYMPH # (test code = LY#) 1.4 10\S\3/uL 1.2-4.0 MID # (test code = GMID#) 0.8 10\S\3/uL 0.0-1.1 GRA % (test code = GRA%) 64.5 % 35.0-73.0 LYMPH % (test code = GLY%) 22.7 % 20.0-55.0 MID % (test code = GMID%) 12.8 % 0.0-10.[address] ABDOMEN AND PELVIS W/O CONTRAST *OW*2018-04-01 12:07:30CT abdomen and pelvis with contrastLocation Code: [id number] HISTORY:Right flank painCOMPARISON: NoneTechnique: Helical CT of [...] 2017-06-07 11:31:00* Test Item Value Reference Range Interpretation Comments Toxicology (test code = LEONILA) Not Detected NotDetected Toxicology (test code = PCP) Not Detected NotDetected Toxicology (test code = COCN) Detected NotDetected A Toxicology (test code = METHAMPU) Not Detected NotDetected Toxicology (test code = OPIA) Not Detected NotDetected Toxicology (test code = AMPHU) Not Detected NotDetected Toxicology (test code = CAREY) Not Detected NotDetected Toxicology (test code = TRICY) Not Detected NotDetected Toxicology (test code = MTD) Not Detected NotDetected Toxicology (test code = CHRISTIANE) Not Detected NotDetected Toxicology (test code = OXYCOD) Not Detected NotDetected Toxicology (test code = PPX) Not Detected NotDetected Toxicology (test code = MTCUTOFF) The Siterra Profile-V Panel for Qualitative Drugs ofAbuse assays are for presumptive screening testing only.The drug class and detection limits are as follows:Drug Class Detection LimitAmphetamine 500 ng/mL*Barbiturates 200 ng/mLBenzodiazepines 150 ng/mL*Cocaine 150 ng/mL*Methamphetamine 500 ng/mL*Methadone 200 ng/mL*Opiates 100 ng/mL*Oxycodone 100 ng/mLPCP 25 ng/mLPropoxyphene 300 ng/mLTricyclic Antidepressants 300 ng/mLCan nabinoids (THC) 50 ng/mLTests which yield a presumptive positive result must betested using a more specific alternate chemical method inorder to obtain a confirmed analytical result. Additionalconfirmation and identification may be ordered on a routinebasis, if desired. Presumptive positive urines are held fortwo weeks. What drug is suspected? cocaineUrine Source: Urine ThwujxAtcbohjcd2669-92-49 09:28:00* Test Item Value Reference Range Interpretation Comments Chemistry (test code = CHOL) 182 mg/dl < 200 Desired Chemistry (test code = TRIG) 113 mg/dL Less than 150 Chemistry (test code = HDL) 42 mg/dL >60 Neg Risk Adult HDL levels in terms of risk for Coronary Heart Disease > or Equal to 60 mg/dL Negative Risk < 40 mg/dL HIGH Risk Chemistry (test code = LDL) 117 mg/dL Levels in terms of risk for coronary heart disease: Desirable: Less than 130 mg/dL Borderline High Risk: 130 - 159 mg/dL High Risk: Greater than 160 mg/dL Chemistry (test code = CRISK) 4.3 Less than 4.5 Adult levels in terms of risk for Coronary Heart Disease: Dangerous Level: Greater than 14.3 High: 6.7 - 14.3 Average: 4.0 - 6.7 Below average: 2.7 - 4.0 Protection probable: Less than 2.7 Dwispnkmb8332-07-33 07:38:00* Test Item Value Reference Range Interpretation Comments Chemistry (test code = TROPI-T) 0.027 ng/mL < 0.028 Reference Range 0.00 - 0.028 ng/mL Negative 0.029 - 0.29 ng/mL Indeterminate Greater or Equal to 0.3 ng/mL Strongly suggests MS Fflfhxjeq8456-03-42 05:03:00* Test Item Value Reference Range Interpretation Comments Chemistry (test code = TROPI-T) 0.031 ng/mL < 0.028 H Reference Range 0.00 - 0.028 ng/mL Negative 0.029 - 0.29 ng/mL Indeterminate Greater or Equal to 0.3 ng/mL Strongly suggests MS Chemistry - BNP, HgbA1c, [id number] 02:00:00* Test Item Value Reference Range Interpretation Comments Chemistry - BNP, HgbA1c, PTHi (test code = BNP) 89.9 pg/mL 0-100 N Uszoivzsl6457-02-04 01:46:00* Test Item Value Reference Range Interpretation Comments Chemistry (test code = NA-T) 138 mmol/L 136-145 N Chemistry (test code = K-T) 4.2 mmol/L 3.5-5.1 N Chemistry (test code = CL) 107 mmol/L 98-107 N Chemistry (test code = CO2) 22 mmol/L 22-29 N Chemistry (test code = ANGP) 13 mmol/L 10-20 N Chemistry (test code = BUN) 7 mg/dL 8.9-20.6 L Chemistry (test code = CREATT) 1.06 mg/dL 0.6-1.3 N Chemistry (test code = EGFRMDRD) 80 Reference Range for Estimated GFR: Greater than 90 mL/min/1.73 m2NOTE:The MDRD equation has not been validated for use with theelderly (over 70 years of age), women, patien tswith serious comorbid condition or persons with extremes ofbody size, muscle mass, or nutritional status. Chemistry (test code = GLU-T) 89 mg/dL 70-105 N Chemistry (test code = CA) 9.4 mg/dL 7.8-10.44 N Chemistry (test code = TBILI) 0.5 mg/dL 0.2-1.2 N Chemistry (test code = TP) 7.2 g/dL 6.0-8.3 N Chemistry (test code = ALB) 4.3 g/dL 3.5-5.0 N Chemistry (test code = GLOB) 2.9 g/dL 2.4-3.5 N Chemistry (test code = AG) 1.5 g/dL 1.2-2.2 N Chemistry (test code = ALP) 54 U/L 40-150 N Chemistry (test code = AST) 22 U/L 5-34 N Chemistry (test code = ALT) 24 U/L 8-55 N Bpqzcblpbw5997-98-58 01:35:00* Test Item Value Reference Range Interpretation Comments Hematology (test code = WBCT) 8.7 thou/uL 4.8-10.8 N Hematology (test code = RBCT) 4.93 mill/uL 4.70-6.10 N Hematology (test code = HGBT) 14.9 g/dL 14.0-18.0 N Hematology (test code = HCTT) 44.9 % 42.0-52.0 N Hematology (test code = MCV) 91.0 fl 80.0-94.0 N Hematology (test code = MCH) 30.2 pg 27.0-31.0 N Hematology (test code = MCHC) 33.1 g/dL 32.0-36.0 N Hematology (test code = RDW) 12.0 % 11.5-14.5 N Hematology (test code = PLTT) 309 thou/uL 130-400 N Hematology (test code = MPV) 6.7 fL 7.4-10.4 L Hematology (test code = %NEUT) 53.0 % 42.0-75.0 N Hematology (test code = %LYMPH) 34.7 % 21.0-51.0 N Hematology (test code = %MONO) 9.1 % 0.0-10.0 N Hematology (test code = %EOS) 1.8 % 0.0-10.0 N Hematology (test code = %BASO) 1.4 % 0.0-1.0 H Hematology (test code = NEUT#) 4.6 thou/uL 1.40-6.50 N Hematology (test code = LYMPH#) 3.0 thou/uL 1.20-3.40 N Hematology (test code = MONO#) 0.8 thou/uL 0.11-0.59 H Hematology (test code = EOS#) 0.2 thou/uL 0.0-0.7 N Hematology (test code = BASO#) 0.1 thou/uL 0.0-0.2 N [id number] 01:14:00* Test Item Value Reference Range Interpretation Comments Chemistry (test code = CKMBM-T) 5.9 ng/mL 0-6.6 N Chemistry (test code = TROPI-T) 0.042 ng/mL < 0.028 H Reference Range 0.00 - 0.028 ng/mL Negative 0.029 - 0.29 ng/mL Indeterminate Greater or Equal to 0.3 ng/mL Strongly suggests MS Xcktnpbje2589-17-22 01:10:00* Test Item Value Reference Range Interpretation Comments Chemistry (test code = CK) 276 U/L 30-200 H Chemistry - BNP, HgbA1c, [id number] 20:29:00* Test Item Value Reference Range Interpretation Comments Chemistry - BNP, HgbA1c, PTHi (test code = BNP) 40.2 pg/mL 0-100 N [id number] 20:28:00* Test Item Value Reference Range Interpretation Comments Chemistry (test code = CKMBM-T) 4.5 ng/mL 0-6.6 N Chemistry (test code = TROPI-T) 0.027 ng/mL < 0.028 Reference Range 0.00 - 0.028 ng/mL Negative 0.029 - 0.29 ng/mL Indeterminate Greater or Equal to 0.3 ng/mL Strongly suggests MS [id number] 20:24:00* Test Item Value Reference Range Interpretation Comments Chemistry (test code = NA-T) 139 mmol/L 136-145 N Chemistry (test code = K-T) 3.7 mmol/L 3.5-5.1 N Chemistry (test code = CL) 105 mmol/L 98-107 N Chemistry (test code = CO2) 23 mmol/L 22-29 N Chemistry (test code = ANGP) 15 mmol/L 10-20 N Chemistry (test code = BUN) 4 mg/dL 8.9-20.6 L Chemistry (test code = CREATT) 1.04 mg/dL 0.6-1.3 N Chemistry (test code = EGFRMDRD) 82 Reference Range for Estimated GFR: Greater than 90 mL/min/1.73 m2NOTE:The MDRD equation has not been validated for use with theelderly (over 70 years of age), women, patien tswith serious comorbid condition or persons with extremes ofbody size, muscle mass, or nutritional status. Chemistry (test code = GLU-T) 118 mg/dL 70-105 H Chemistry (test code = CA) 9.4 mg/dL 7.8-10.44 N Chemistry (test code = TBILI) 0.6 mg/dL 0.2-1.2 N Chemistry (test code = TP) 7.6 g/dL 6.0-8.3 N Chemistry (test code = ALB) 4.3 g/dL 3.5-5.0 N Chemistry (test code = GLOB) 3.3 g/dL 2.4-3.5 N Chemistry (test code = AG) 1.3 g/dL 1.2-2.2 N Chemistry (test code = ALP) 60 U/L 40-150 N Chemistry (test code = AST) 23 U/L 5-34 N Chemistry (test code = ALT) 26 U/L 8-55 N Qcqszcwir8628-76-45 20:24:00* Test Item Value Reference Range Interpretation Comments Chemistry (test code = CK) 325 U/L 30-200 H [id number] 20:03:00* Test Item Value Reference Range Interpretation Comments Hematology (test code = WBCT) 7.9 thou/uL 4.8-10.8 N Hematology (test code = RBCT) 5.10 mill/uL 4.70-6.10 N Hematology (test code = HGBT) 15.5 g/dL 14.0-18.0 N Hematology (test code = HCTT) 45.8 % 42.0-52.0 N Hematology (test code = MCV) 89.7 fl 80.0-94.0 N Hematology (test code = MCH) 30.3 pg 27.0-31.0 N Hematology (test code = MCHC) 33.8 g/dL 32.0-36.0 N Hematology (test code = RDW) 11.9 % 11.5-14.5 N Hematology (test code = PLTT) 350 thou/uL 130-400 N Hematology (test code = MPV) 6.3 fL 7.4-10.4 L Hematology (test code = %NEUT) 60.6 % 42.0-75.0 N Hematology (test code = %LYMPH) 29.6 % 21.0-51.0 N Hematology (test code = %MONO) 8.6 % 0.0-10.0 N Hematology (test code = %EOS) 0.5 % 0.0-10.0 N Hematology (test code = %BASO) 0.8 % 0.0-1.0 N Hematology (test code = NEUT#) 4.8 thou/uL 1.40-6.50 N Hematology (test code = LYMPH#) 2.3 thou/uL 1.20-3.40 N Hematology (test code = MONO#) 0.7 thou/uL 0.11-0.59 H Hematology (test code = EOS#) 0.0 thou/uL 0.0-0.7 N Hematology (test code = BASO#) 0.1 thou/uL 0.0-0.2 N [id number] 18:47:00* Test Item Value Reference Range Interpretation Comments Chemistry (test code = NA-T) 134 mmol/L 136-145 L Chemistry (test code = K-T) 3.5 mmol/L 3.5-5.1 N Chemistry (test code = CL) 100 mmol/L 98-107 N Chemistry (test code = CO2) 23 mmol/L 22-29 N Chemistry (test code = ANGP) 15 mmol/L 10-20 N Chemistry (test code = BUN) 8 mg/dL 8.9-20.6 L Chemistry (test code = CREATT) 1.00 mg/dL 0.6-1.3 N Chemistry (test code = EGFRMDRD) 86 Reference Range for Estimated GFR: Greater than 90 mL/min/1.73 m2NOTE:The MDRD equation has not been validated for use with theelderly (over 70 years of age), women, patien tswith serious comorbid condition or persons with extremes ofbody size, muscle mass, or nutritional status. Chemistry (test code = GLU-T) 104 mg/dL 70-105 N Chemistry (test code = CA) 9.9 mg/dL 7.8-10.44 N Chemistry (test code = TBILI) 0.7 mg/dL 0.2-1.2 N Chemistry (test code = TP) 8.5 g/dL 6.0-8.3 H Chemistry (test code = ALB) 4.6 g/dL 3.5-5.0 N Chemistry (test code = GLOB) 3.9 g/dL 2.4-3.5 H Chemistry (test code = AG) 1.2 g/dL 1.2-2.2 N Chemistry (test code = ALP) 64 U/L 40-150 N Chemistry (test code = AST) 27 U/L 5-34 N Chemistry (test code = ALT) 26 U/L 8-55 N Nwdpurvyhu4187-24-35 18:43:00* Test Item Value Reference Range Interpretation Comments Urinalysis (test code = UACLR) YELLOW Yellow Urinalysis (test code = UACLY) CLEAR Clear Urinalysis (test code = SPGR) 1.008 1.002-1.036 N Urinalysis (test code = NIRAV) 6.5 5.0-9.0 N Urinalysis (test code = UALEU) Negative Negative Urinalysis (test code = UANIT) Negative Negative Urinalysis (test code = PROUADIP) Negative mg/dL Neg-Trace Urinalysis (test code = GLUCU) Negative mg/dL Negative Urinalysis (test code = KETU) Negative mg/dL Negative Urinalysis (test code = UAUROB) 0.2 mg/dL 0.2-1.0 Urinalysis (test code = UABIL) Negative Negative Urinalysis (test code = UABLD) Negative Negative Urine Source: Urine [id number] 18:22:00* Test Item Value Reference Range Interpretation Comments Hematology (test code = WBCT) 11.1 thou/uL 4.8-10.8 H Hematology (test code = RBCT) 5.56 mill/uL 4.70-6.10 N Hematology (test code = HGBT) 16.7 g/dL 14.0-18.0 N Hematology (test code = HCTT) 50.2 % 42.0-52.0 N Hematology (test code = MCV) 90.2 fl 80.0-94.0 N Hematology (test code = MCH) 30.1 pg 27.0-31.0 N Hematology (test code = MCHC) 33.4 g/dL 32.0-36.0 N Hematology (test code = RDW) 11.6 % 11.5-14.5 N Hematology (test code = PLTT) 347 thou/uL 130-400 N Hematology (test code = MPV) 6.2 fL 7.4-10.4 L Hematology (test code = %NEUT) 69.2 % 42.0-75.0 N Hematology (test code = %LYMPH) 21.8 % 21.0-51.0 N Hematology (test code = %MONO) 7.9 % 0.0-10.0 N Hematology (test code = %EOS) 0.5 % 0.0-10.0 N Hematology (test code = %BASO) 0.7 % 0.0-1.0 N Hematology (test code = NEUT#) 7.7 thou/uL 1.40-6.50 H Hematology (test code = LYMPH#) 2.4 thou/uL 1.20-3.40 N Hematology (test code = MONO#) 0.9 thou/uL 0.11-0.59 H Hematology (test code = EOS#) 0.1 thou/uL 0.0-0.7 N Hematology (test code = BASO#) 0.1 thou/uL 0.0-0.2 N [id number] 05:54:00* Test Item Value Reference Range Interpretation Comments Chemistry (test code = NA-T) 139 mmol/L 136-145 N Chemistry (test code = K-T) 4.2 mmol/L 3.5-5.1 N Chemistry (test code = CL) 108 mmol/L 98-107 H Chemistry (test code = CO2) 24 mmol/L 22-29 N Chemistry (test code = ANGP) 11 mmol/L 10-20 N Chemistry (test code = BUN) 7 mg/dL 8.9-20.6 L Chemistry (test code = CREATT) 1.07 mg/dL 0.6-1.3 N Chemistry (test code = EGFRMDRD) 79 Reference Range for Estimated GFR: Greater than 90 mL/min/1.73 m2NOTE:The MDRD equation has not been validated for use with theelderly (over 70 years of age), women, patien tswith serious comorbid condition or persons with extremes ofbody size, muscle mass, or nutritional status. Chemistry (test code = GLU-T) 99 mg/dL 70-105 N Chemistry (test code = CA) 9.3 mg/dL 7.8-10.44 N Kdsopghqy5979-92-50 05:54:00* Test Item Value Reference Range Interpretation Comments Chemistry (test code = CK) 477 U/L 30-200 H Fbtezcvoe5134-52-76 06:14:00* Test Item Value Reference Range Interpretation Comments Chemistry (test code = NA-T) 141 mmol/L 136-145 N Chemistry (test code = K-T) 4.3 mmol/L 3.5-5.1 N Chemistry (test code = CL) 109 mmol/L 98-107 H Chemistry (test code = CO2) 26 mmol/L 22-29 N Chemistry (test code = ANGP) 10 mmol/L 10-20 N Chemistry (test code = BUN) 9 mg/dL 8.9-20.6 N Chemistry (test code = CREATT) 1.13 mg/dL 0.6-1.3 N Chemistry (test code = EGFRMDRD) 74 Reference Range for Estimated GFR: Greater than 90 mL/min/1.73 m2NOTE:The MDRD equation has not been validated for use with theelderly (over 70 years of age), women, patien tswith serious comorbid condition or persons with extremes ofbody size, muscle mass, or nutritional status. Chemistry (test code = GLU-T) 97 mg/dL 70-105 N Chemistry (test code = CA) 8.9 mg/dL 7.8-10.44 N Hzaihpafq1208-64-00 06:14:00* Test Item Value Reference Range Interpretation Comments Chemistry (test code = CK) 673 U/L 30-200 H Lvnnanbee8043-66-24 06:14:00* Test Item Value Reference Range Interpretation Comments Chemistry (test code = CHOL) 187 mg/dl < 200 Desired Chemistry (test code = TRIG) 168 mg/dL Less than 150 H Chemistry (test code = HDL) 36 mg/dL >60 Neg Risk Adult HDL levels in terms of risk for Coronary Heart Disease > or Equal to 60 mg/dL Negative Risk < 40 mg/dL HIGH Risk Chemistry (test code = LDL) 117 mg/dL Levels in terms of risk for coronary heart disease: Desirable: Less than 130 mg/dL Borderline High Risk: 130 - 159 mg/dL High Risk: Greater than 160 mg/dL Chemistry (test code = CRISK) 5.2 Less than 4.5 Adult levels in terms of risk for Coronary Heart Disease: Dangerous Level: Greater than 14.3 High: 6.7 - 14.3 Average: 4.0 - 6.7 Below average: 2.7 - 4.0 Protection probable: Less than 2.7 Oywywwjvet1145-25-16 05:53:00* Test Item Value Reference Range Interpretation Comments Hematology (test code = WBCT) 7.7 thou/uL 4.8-10.8 N Hematology (test code = RBCT) 4.17 mill/uL 4.70-6.10 L Hematology (test code = HGBT) 12.8 g/dL 14.0-18.0 L Hematology (test code = HCTT) 38.8 % 42.0-52.0 L Hematology (test code = MCV) 93.1 fl 80.0-94.0 N Hematology (test code = MCH) 30.7 pg 27.0-31.0 N Hematology (test code = MCHC) 33.0 g/dL 32.0-36.0 N Hematology (test code = RDW) 12.2 % 11.5-14.5 N Hematology (test code = PLTT) 274 thou/uL 130-400 N Hematology (test code = MPV) 6.8 fL 7.4-10.4 L Hematology (test code = %NEUT) 42.5 % 42.0-75.0 N Hematology (test code = %LYMPH) 40.2 % 21.0-51.0 N Hematology (test code = %MONO) 12.1 % 0.0-10.0 H Hematology (test code = %EOS) 4.1 % 0.0-10.0 N Hematology (test code = %BASO) 1.1 % 0.0-1.0 H Hematology (test code = NEUT#) 3.3 thou/uL 1.40-6.50 N Hematology (test code = LYMPH#) 3.1 thou/uL 1.20-3.40 N Hematology (test code = MONO#) 0.9 thou/uL 0.11-0.59 H Hematology (test code = EOS#) 0.3 thou/uL 0.0-0.7 N Hematology (test code = BASO#) 0.1 thou/uL 0.0-0.2 N Vfszvutis2765-01-12 19:45:00* Test Item Value Reference Range Interpretation Comments Chemistry (test code = TROPI-T) 0.056 ng/mL < 0.028 H Reference Range 0.00 - 0.028 ng/mL Negative 0.029 - 0.29 ng/mL Indeterminate Greater or Equal to 0.3 ng/mL Strongly suggests MS [id number] 17:06:00* Test Item Value Reference Range Interpretation Comments Chemistry (test code = TROPI-T) 0.063 ng/mL < 0.028 H Reference Range 0.00 - 0.028 ng/mL Negative 0.029 - 0.29 ng/mL Indeterminate Greater or Equal to 0.3 ng/mL Strongly suggests MS Dfsmcruhbb3519-57-96 15:28:00* Test Item Value Reference Range Interpretation Comments Toxicology (test code = LEONILA) Not Detected NotDetected Toxicology (test code = PCP) Not Detected NotDetected Toxicology (test code = COCN) Detected NotDetected A Toxicology (test code = METHAMPU) Not Detected NotDetected Toxicology (test code = OPIA) Not Detected NotDetected Toxicology (test code = AMPHU) Not Detected NotDetected Toxicology (test code = CAREY) Not Detected NotDetected Toxicology (test code = TRICY) Not Detected NotDetected Toxicology (test code = MTD) Not Detected NotDetected Toxicology (test code = CHRISTIANE) Not Detected NotDetected Toxicology (test code = OXYCOD) Not Detected NotDetected Toxicology (test code = PPX) Not Detected NotDetected Toxicology (test code = MTCUTOFF) The [employer] Profile-V Panel for Qualitative Drugs ofAbuse assays are for presumptive screening testing only.The drug class and detection limits are as follows:Drug Class Detection LimitAmphetamine 500 ng/mL*Barbiturates 200 ng/mLBenzodiazepines 150 ng/mL*Cocaine 150 ng/mL*Methamphetamine 500 ng/mL*Methadone 200 ng/mL*Opiates 100 ng/mL*Oxycodone 100 ng/mLPCP 25 ng/mLPropoxyphene 300 ng/mLTricyclic Antidepressants 300 ng/mLCan nabinoids (THC) 50 ng/mLTests which yield a presumptive positive result must betested using a more specific alternate chemical method inorder to obtain a confirmed analytical result. Additionalconfirmation and identification may be ordered on a routinebasis, if desired. Presumptive positive urines are held fortwo weeks. Urine Source: Urine [id number] 15:22:00* Test Item Value Reference Range Interpretation Comments Urinalysis (test code = UACLR) YELLOW Yellow Urinalysis (test code = UACLY) CLEAR Clear Urinalysis (test code = SPGR) 1.002 1.002-1.036 N Urinalysis (test code = NIRAV) 7.5 5.0-9.0 N Urinalysis (test code = UALEU) Negative Negative Urinalysis (test code = UANIT) Negative Negative Urinalysis (test code = PROUADIP) Negative mg/dL Neg-Trace Urinalysis (test code = GLUCU) Negative mg/dL Negative Urinalysis (test code = KETU) Negative mg/dL Negative Urinalysis (test code = UAUROB) 0.2 mg/dL 0.2-1.0 Urinalysis (test code = UABIL) Negative Negative Urinalysis (test code = UABLD) Negative Negative Urine Source: Urine VoidedChemistry - Ifqwqqez5696-88-15 15:05:00* Test Item Value Reference Range Interpretation Comments Chemistry - Specials (test code = TSH3) 0.4726 uIU/mL 0.35-4.94 N Pdlyhxqtc1270-82-69 14:45:00* Test Item Value Reference Range Interpretation Comments Chemistry (test code = PHOS) 2.6 mg/dL 2.3-4.7 N Tahfkkfic1190-10-94 14:45:00* Test Item Value Reference Range Interpretation Comments Chemistry (test code = MG) 1.8 mg/dL 1.6-2.6 N Qeoshihyo5469-68-57 14:17:00* Test Item Value Reference Range Interpretation Comments Chemistry (test code = CCCK) ANUP@1416 Chemistry (test code = CKMBM-T) 7.9 ng/mL 0-6.6 HH Critical value! Chemistry (test code = TROPI-T) 0.042 ng/mL < 0.028 H Reference Range 0.00 - 0.028 ng/mL Negative 0.029 - 0.29 ng/mL Indeterminate Greater or Equal to 0.3 ng/mL Strongly suggests MS Abtilbnfm9933-38-47 14:14:00* Test Item Value Reference Range Interpretation Comments Chemistry (test code = NA-T) 133 mmol/L 136-145 L Chemistry (test code = K-T) 3.9 mmol/L 3.5-5.1 N Chemistry (test code = CL) 98 mmol/L 98-107 N Chemistry (test code = CO2) 24 mmol/L 22-29 N Chemistry (test code = ANGP) 15 mmol/L 10-20 N Chemistry (test code = BUN) 10 mg/dL 8.9-20.6 N Chemistry (test code = CREATT) 1.22 mg/dL 0.6-1.3 N Chemistry (test code = EGFRMDRD) 68 Reference Range for Estimated GFR: Greater than 90 mL/min/1.73 m2NOTE:The MDRD equation has not been validated for use with theelderly (over 70 years of age), women, patien tswith serious comorbid condition or persons with extremes ofbody size, muscle mass, or nutritional status. Chemistry (test code = GLU-T) 124 mg/dL 70-105 H Chemistry (test code = CA) 9.7 mg/dL 7.8-10.44 N Chemistry (test code = TBILI) 0.4 mg/dL 0.2-1.2 N Chemistry (test code = TP) 7.7 g/dL 6.0-8.3 N Chemistry (test code = ALB) 4.3 g/dL 3.5-5.0 N Chemistry (test code = GLOB) 3.4 g/dL 2.4-3.5 N Chemistry (test code = AG) 1.3 g/dL 1.2-2.2 N Chemistry (test code = ALP) 58 U/L 40-150 N Chemistry (test code = AST) 30 U/L 5-34 N Chemistry (test code = ALT) 29 U/L 8-55 N Ywgfkzmir1872-97-82 14:14:00* Test Item Value Reference Range Interpretation Comments Chemistry (test code = CK) 1049 U/L 30-200 H Hmdxcmrks6378-79-83 14:14:00* Test Item Value Reference Range Interpretation Comments Chemistry (test code = LIP) 54 U/L 8-78 N Uawjdexyjh9442-16-92 13:39:00* Test Item Value Reference Range Interpretation Comments Hematology (test code = WBCT) 12.9 thou/uL 4.8-10.8 H Hematology (test code = RBCT) 4.74 mill/uL 4.70-6.10 N Hematology (test code = HGBT) 14.4 g/dL 14.0-18.0 N Hematology (test code = HCTT) 43.1 % 42.0-52.0 N Hematology (test code = MCV) 91.0 fl 80.0-94.0 N Hematology (test code = MCH) 30.5 pg 27.0-31.0 N Hematology (test code = MCHC) 33.5 g/dL 32.0-36.0 N Hematology (test code = RDW) 11.9 % 11.5-14.5 N Hematology (test code = PLTT) 331 thou/uL 130-400 N Hematology (test code = MPV) 6.3 fL 7.4-10.4 L Hematology (test code = %NEUT) 76.2 % 42.0-75.0 H Hematology (test code = %LYMPH) 16.1 % 21.0-51.0 L Hematology (test code = %MONO) 6.5 % 0.0-10.0 N Hematology (test code = %EOS) 0.6 % 0.0-10.0 N Hematology (test code = %BASO) 0.7 % 0.0-1.0 N Hematology (test code = NEUT#) 9.8 thou/uL 1.40-6.50 H Hematology (test code = LYMPH#) 2.1 thou/uL 1.20-3.40 N Hematology (test code = MONO#) 0.8 thou/uL 0.11-0.59 H Hematology (test code = EOS#) 0.1 thou/uL 0.0-0.7 N Hematology (test code = BASO#) 0.1 thou/uL 0.0-0.2 N [id number] 04:22:00* Test Item Value Reference Range Interpretation Comments Chemistry (test code = TROPI-T) 0.038 ng/mL < 0.028 H Reference Range 0.00 - 0.028 ng/mL Negative 0.029 - 0.29 ng/mL Indeterminate Greater or Equal to 0.3 ng/mL Strongly suggests MS Pxoosmaux7080-60-13 02:00:00* Test Item Value Reference Range Interpretation Comments Chemistry (test code = NA-T) 135 mmol/L 136-145 L Chemistry (test code = K-T) 3.9 mmol/L 3.5-5.1 N Chemistry (test code = CL) 98 mmol/L 98-107 N Chemistry (test code = CO2) 25 mmol/L 22-29 N Chemistry (test code = ANGP) 16 mmol/L 10-20 N Chemistry (test code = BUN) 11 mg/dL 8.9-20.6 N Chemistry (test code = CREATT) 1.33 mg/dL 0.6-1.3 H Chemistry (test code = EGFRMDRD) 62 Reference Range for Estimated GFR: Greater than 90 mL/min/1.73 m2NOTE:The MDRD equation has not been validated for use with theelderly (over 70 years of age), women, patien tswith serious comorbid condition or persons with extremes ofbody size, muscle mass, or nutritional status. Chemistry (test code = GLU-T) 160 mg/dL 70-105 H Chemistry (test code = CA) 9.7 mg/dL 7.8-10.44 N Chemistry (test code = TBILI) 0.5 mg/dL 0.2-1.2 N Chemistry (test code = TP) 8.5 g/dL 6.0-8.3 H Chemistry (test code = ALB) 4.7 g/dL 3.5-5.0 N Chemistry (test code = GLOB) 3.8 g/dL 2.4-3.5 H Chemistry (test code = AG) 1.2 g/dL 1.2-2.2 N Chemistry (test code = ALP) 61 U/L 40-150 N Chemistry (test code = AST) 32 U/L 5-34 N Chemistry (test code = ALT) 33 U/L 8-55 N Jgefdatwkx4978-59-39 01:58:00* Test Item Value Reference Range Interpretation Comments Hematology (test code = WBCT) 9.6 thou/uL 4.8-10.8 N Hematology (test code = RBCT) 5.10 mill/uL 4.70-6.10 N Hematology (test code = HGBT) 15.7 g/dL 14.0-18.0 N Hematology (test code = HCTT) 46.7 % 42.0-52.0 N Hematology (test code = MCV) 91.5 fl 80.0-94.0 N Hematology (test code = MCH) 30.8 pg 27.0-31.0 N Hematology (test code = MCHC) 33.7 g/dL 32.0-36.0 N Hematology (test code = RDW) 12.2 % 11.5-14.5 N Hematology (test code = PLTT) 345 thou/uL 130-400 N Hematology (test code = MPV) 7.0 fL 7.4-10.4 L Hematology (test code = %NEUT) 69.9 % 42.0-75.0 N Hematology (test code = %LYMPH) 21.1 % 21.0-51.0 N Hematology (test code = %MONO) 7.5 % 0.0-10.0 N Hematology (test code = %EOS) 0.8 % 0.0-10.0 N Hematology (test code = %BASO) 0.8 % 0.0-1.0 N Hematology (test code = NEUT#) 6.7 thou/uL 1.40-6.50 H Hematology (test code = LYMPH#) 2.0 thou/uL 1.20-3.40 N Hematology (test code = MONO#) 0.7 thou/uL 0.11-0.59 H Hematology (test code = EOS#) 0.1 thou/uL 0.0-0.7 N Hematology (test code = BASO#) 0.1 thou/uL 0.0-0.2 N Zdiuymhbb5569-05-90 01:41:00* Test Item Value Reference Range Interpretation Comments Chemistry (test code = CCCK) ERS.DEC@0141 Chemistry (test code = CKMBM-T) 7.8 ng/mL 0-6.6 HH Critical value! Chemistry (test code = TROPI-T) 0.048 ng/mL < 0.028 H Reference Range 0.00 - 0.028 ng/mL Negative 0.029 - 0.29 ng/mL Indeterminate Greater or Equal to 0.3 ng/mL Strongly suggests MS [facility] [place] [facility] BRODIE BURROUG[employer] Phys: [place] [address] : 1980 Age: 38 SEX:M [phone] Exam Date: 12/19/18 Status: REG ER Acct: [id number] Loc: ERS Pt Unit #: [id number] Report #: [id number] CC: Ashok Martinez DO [facility] REPORT Order # Category/Exam [id number] RAD/XR Chest 1 View Portable ([id number]): . Results PORTABLE CHEST: Date: 12/19/18 COMPARISON: 06/07/17. HISTORY: Drug overdose. FINDINGS: Heart size appears slightly enlarged. Mediastinal structures are unremarkable. Lungs are clear of infiltrates. The film is of poor inspiration. IMPRESSION: Borderline heart size, somewhat difficult to assess due to portable technique and poor inspiration. POS: [facility] Reported By: Juno Daniels MD Electronically Signed Date/Time: 12/19/18 0877 Technologist: KALLIE Dictated Date/Time: 12/19/18 0736 Transcribed Date/Time: 12/19/18 4581
[2019-11-09] MEDS ORDERED: CLINDAMYCIN PHOS 600 MG/ 4 ML VIAL IM STA (12:53)
[2019-11-09] MEDS ORDERED: KETOROLAC TROMETHAMINE 60 MG/2 ML VIAL IM STA (12:53)
[2019-11-09] MEDS ORDERED: VALIUM5 MG (12:55)
[2019-11-09] MEDS ORDERED: METFORMIN HCL500 MG PO (12:55)
--- NOTE | 2019-11-09 13:09 | Emergency Department Note ---
History of Present Illnes History of Present Illness Chief Complaint: slightly larger than a pimple on rgt side of neck History of Present Illness This is a 39 year old male. was doing well prior to this. Pt's said his significant ther squeeze the pus out 1 day ago. then started to feel generalize neck pain. 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: CBD oil to left side of neck History limited by: condition of the patient (normal) District Sales Coordinator Required: No Onset (how long ago): day(s) (3) Location: rgt neck Quality: soreness Radiation: non-radiation Severity: mild Onset quality: gradual Duration (how long): day(s) (3) Timing of current episode: constant Progression: worsening Context: recent illness, recent surgery, recent immobilization, recent travel, trauma/injury, new medications, hx of DVT/PE, non-compliance w/ medications Relieving factors: none Exacerbating factors: none Associated symptoms: rash Treatments prior to arrival: none Past Medical/Family History Physician Review I have reviewed the patient's past medical and family history. Any updates have been documented here. Past Medical History Recent Fever: No Clinical Suspicion of Infectio: No New/Unexplained Change in Ment: No Past Medical History: Diabetes, Asthma, Anxiety Other Medical History: renal cell carcinoma Past Surgical History: T&A Other Surgery: right partial nephrectomy Social History Smoking Cessation: Current every day smoker Counseling Performed: Yes Alcohol Use: None Any Illegal Drug Use: No TB Exposure/Symptoms: No Physically hurt or threatened: No Family History Family history of heart diseas: Yes Other Last Tetanus: 09/2019 Any Pre-Existing Lines (PICC,: No Is patient up to date on immun: Yes Last Flu: none Last Pneumovax: none Review of Systems Review of Systems Constitutional: no symptoms EENTM: no symptoms Cardiovascular: no symptoms Respiratory: no symptoms Gastrointestinal: no symptoms Genitourinary: no symptoms Musculoskeletal: as per HPI, neck pain Neurological: no symptoms Psychological: no symptoms Endocrine: no symptoms Hematological/Lymphatic: no symptoms Review of other systems All other systems reviewed and negative. Physical Exam Related Data Allergies: Coded Allergies: No Known Allergies (Unverified , 08/30/18) Triage Vital Signs Vital Signs Date Time Temp Pulse Resp B/P (MAP) Pulse Ox O2 Delivery O2 Flow Rate FiO2 6/1/20 12:31 98.3 88 18 142/76 98 Vital signs reviewed: Yes Physical Exam CONSTITUTIONAL Constitutional: well-developed, well-nourished HENT HENT: normocephalic, atraumatic, oropharynx clear/moist, nose normal HENT L/R: left ext ear normal, right ext ear normal EYES Eyes: PERRL, conjunctivae normal NECK Neck: ROM normal, other (no meningeal signs) PULMONARY Pulmonary: effort normal, breath sounds normal CARDIOVASCULAR Cardiovascular: regular rhythm, heart sounds normal, capillary refill normal, normal rate GASTROINTESTINAL Abdominal: soft, nontender, bowel sounds normal GENITOURINARY Genitourinary: exam deferred SKIN Skin: warm, dry, erythema (1cm diameter pimple rgt neck with 0.5cm of surrounding erythematous tender macular nonflucuant scabbing over rash) MUSCULOSKELETAL Musculoskeletal: ROM normal NEUROLOGICAL Neurological: alert, oriented x 3, no gross motor or sensory deficits PSYCHOLOGICAL Psychological: mood/affect normal, judgement normal Critical Care Time Subsequent provider I assumed direction of critical care for this patient from another provider of my specialty. Assessment & Plan Assessment & Plan Final Impression: (1) CUTANEOUS ABSCESS OF NECK (2) CELLULITIS OF NECK Assessment & Plan rxed bactrim and naprosyn. f/u with pcp Last Vital Signs Date Time Temp Pulse Resp B/P (MAP) Pulse Ox O2 Delivery O2 Flow Rate FiO2 11/09/19 12:31 98.3 88 18 142/76 98 Home Meds Active Scripts Naproxen (NAPROSYN) 500 Mg Tablet, 500 MG PO BID, #20 TAB Prov:JANELLE CRAWFORD 11/09/19 Sulfamethoxazole/Trimethoprim (BACTRIM DS TABLET) 1 Each Tablet, 1 TAB PO BID for 10 Days, #20 TAB Prov:JANELLE CRAWFORD 11/09/19 Reported Medications Diazepam (VALIUM) 5 Mg Tablet, PRN for ANXIETY 11/09/19 Metformin Hcl (METFORMIN HCL) 500 Mg Tablet, 500 MG PO BID, #60 TAB 11/09/19 Discontinued Scripts Methocarbamol (ROBAXIN-750) 750 Mg Tablet, 750 MG PO Q6H PRN for musc spasms, #30 Prov:YUNIEL WILLIS MD 07/31/19 Medications in the ED Clindamycin Phosphate 600 mg ONCE STAT IM Last administered on 11/09/19at 13:05; Admin Dose 600 MG; Start 11/09/19 at 12:53; Stop 11/09/19 at 12:54; Status UNV Ketorolac Tromethamine 60 mg ONCE STAT IM Last administered on 11/09/19 13:05; Admin Dose 60 MG; Start 11/09/19 at 12:53; Stop 11/09/19 at 12:54; Status UNV JANELLE CRAWFORD Nov 09, 2019 13:09
[2019-11-09] MEDS ORDERED: NAPROSYN500 MG PO (13:11)
[2019-11-09] MEDS ORDERED: BACTRIM DS TAB1 EACH PO (13:11)
== END 2019-11-09 13:15 | disposition home or self-care (01) ==
LOC: FSED 12:27
DX: L02.11 Cutaneous abscess of neck (principal); L03.221 Cellulitis of neck; E11.9 Type 2 diabetes mellitus without complications; J45.909 Unspecified asthma, uncomplicated; F41.9 Anxiety disorder, unspecified; Z85.53 Personal history of malignant neoplasm of renal pelvis
CPT/HCPCS: 96372; 99282; J1885

== ENCOUNTER 2020-02-20 14:31 | Emergency (ER) | payer BC ==
[~2020-02-20] VITALS: Ht 162.6 cm; Wt 117.9 kg
[~2020-02-20 14:31] MED LIST changes: +BACTRIM DS TAB1 EACH PO; +METFORMIN HCL500 MG PO; +NAPROSYN500 MG PO; +VALIUM5 MG
[2020-02-20] MEDS ORDERED: CEFTRIAXONE SOD 1 GM VIAL IM STA (15:08)
[2020-02-20] MEDS ORDERED: CEFDINIR300 MG PO (15:14)
--- NOTE | 2020-02-20 15:14 | Emergency Department Note ---
History of Present Illnes History of Present Illness Chief Complaint: rgt ear pain, sore throat History of Present Illness This is a 39 year old male. was doing well prior to this. then experience an anxiety attack while having these symptoms and driving over a bridge Arrival Mode: Car History limited by: condition of the patient (normal) Secret Service Agent Required: No Onset (how long ago): day(s) (1) Location: see above Quality: see aboves Radiation: Reports non-radiation Severity: mild Onset quality: gradual Duration (how long): day(s) (1) Timing of current episode: constant Progression: partially resolved Chronicity: recurrent Context: Denies recent illness, Denies recent surgery, Denies recent immobilization, Denies recent travel, Denies trauma/injury, Denies new medications, Denies hx of DVT/PE, Denies non-compliance w/ medications Relieving factors: none Exacerbating factors: none Associated symptoms: Reports denies other symptoms Treatments prior to arrival: none Past Medical/Family History Physician Review I have reviewed the patient's past medical and family history. Any updates have been documented here. Past Medical History Recent Fever: No Clinical Suspicion of Infectio: No New/Unexplained Change in Ment: No Past Medical History: Diabetes, Asthma, Anxiety Other Medical History: renal cell carcinoma Past Surgical History: T&A Other Surgery: right partial nephrectomy Social History Smoking Cessation: Never Smoker Counseling Performed: No Any Illegal Drug Use: No TB Exposure/Symptoms: No Physically hurt or threatened: No Family History Family history of heart diseas: No Other Last Tetanus: 09/2019 Any Pre-Existing Lines (PICC,: No Is patient up to date on immun: No Review of Systems Review of Systems Constitutional: Reports no symptoms EENTM: Reports as per HPI Cardiovascular: Reports no symptoms Respiratory: Reports no symptoms Gastrointestinal: Reports no symptoms Genitourinary: Reports no symptoms Musculoskeletal: Reports no symptoms Integumentary: Reports no symptoms Neurological: Reports no symptoms Psychological: Reports no symptoms Endocrine: Reports no symptoms Hematological/Lymphatic: Reports no symptoms Review of other systems: All other systems negative Physical Exam Related Data Allergies: Coded Allergies: No Known Allergies (Unverified , 08/30/18) Vital signs reviewed: Yes Physical Exam CONSTITUTIONAL Constitutional: Present well-developed, Present well-nourished HENT HENT: Present normocephalic, Present atraumatic, Present nose normal, Present pharynx abnormal, Present erythema (rgt tm) HENT L/R: Present left ext ear normal, Present right ext ear normal, Present right bulging TM EYES Eyes: Reports PERRL, Reports conjunctivae normal NECK Neck: Present ROM normal PULMONARY Pulmonary: Present effort normal, Present breath sounds normal CARDIOVASCULAR Cardiovascular: Present regular rhythm, Present heart sounds normal, Present c apillary refill normal, Present normal rate GASTROINTESTINAL Abdominal: Present soft, Present nontender, Present bowel sounds normal GENITOURINARY Genitourinary: Present exam deferred SKIN Skin: Present warm, Present dry MUSCULOSKELETAL Musculoskeletal: Present ROM normal NEUROLOGICAL Neurological: Present alert, Present oriented x 3, Present no gross motor or sensory deficits PSYCHOLOGICAL Psychological: Present mood/affect normal, Present judgement normal Assessment & Plan Medical Decision Making MDM see below Assessment & Plan Final Impression: (1) Acute pharyngitis (2) Otitis media Depart Disposition: HOME, SELF-penitentiary Meds Active Scripts Cefdinir (OMNICEF) 300 Mg Capsule, 300 MG PO BID, #20 CAP Prov:JANELLE CRAWFORD 02/20/20 Naproxen (NAPROSYN) 500 Mg Tablet, 500 MG PO BID, #20 TAB Prov:JANELLE CRAWFORD 11/09/19 Sulfamethoxazole/Trimethoprim (BACTRIM DS TABLET) 1 Each Tablet, 1 TAB PO BID for 10 Days, #20 TAB Prov:JANELLE CRAWFORD 11/09/19 Reported Medications Diazepam (VALIUM) 5 Mg Tablet, PRN for ANXIETY 11/09/19 Metformin Hcl (METFORMIN HCL) 500 Mg Tablet, 500 MG PO BID, #60 TAB 11/09/19 Medications in the ED Ceftriaxone Sodium 1 gm ONCE STAT IM ; Start 02/20/20 at 15:08; Stop 02/20/20 at 15:12; Status DC JANELLE CRAWFORD Feb 20, 2020 15:14
[2020-02-20] MEDS ORDERED: CEFTRIAXONE SOD 1 GM VIAL ONE (15:39)
[2020-02-20] MEDS ORDERED: LIDOCAINE HCL 1% LOCAL INJ 20 ML VIAL ONE (15:39)
--- OUTSIDE RECORDS SUMMARY | 2020-02-20 15:50 | XMS REPORT | Continuity of Care Document ---
Author Author [facility] t Organization [facility] Address [address] [place] [address] Phone Unavailable Care Team Providers Care Reporter Name Role Phone NONSTAFF PCP Unavailable EMILY RANDOLPH Attphys Unavailable Merlyn WILLIS Attphys Unavailable PROVIDER, TEMP ED Attphys Unavailable DR MUMTAZ COLUNGA Attphys Unavailable CALI CORTEZ Attphys Unavailable ANGY KAUR Attphys Unavailable ERICK BRADLEY Attphys Unavailable DR MUMTAZ COLUNGA Admphybubba Unavailable CALI CORTEZ Admphys Unavailable ANGY KAUR Admphys Unavailable Payers Payer Name Policy Type Policy Number Effective Date Expiration Date Bubba tobin [facility] Exchange NA 2019 00:00:00 [facility] [id number] 2018 00:00:00 [facility] Problems Condition Name Condition Details Condition Category Status Onset Date Resolution Date Last Treatment Date Treating Clinician Comments Source Problem Condition Active [facility] Allergies, Adverse Reactions, Alerts Allergy Name Allergy Type Status Severity Reaction(s) Onset Date Inacti ve Date Treating Clinician Comments Source No Known Allergies DA Active U 2019-10-06 00:00:[address] [facility] No Known Contrast Allergies DA Active U 2004-01-16 00:00: 00 [facility] No Known Drug Allergies DA Active U 2004-01-16 00:00:00 [facility] No Known Food Allergies DA Active U 2004-01-16 00:00:00 [facility] No Known Other Allergies DA Active U 2004-01-16 00:00:00 [facility] Social History Social Habit Start Date Stop Date Quantity Comments Source Sex Assigned At 1980 00:00:00 1980 00:00:00 Male [facility] Medications Ordered Medication Name Filled Medication Name Start Date Stop Da te Current Medication? Ordering Clinician Indication Dosage Frequency Signature (SIG) Comments Components Source Naproxen (Naprosyn) 500 Mg TABLET Naproxen (Naprosyn) 500 Mg TABLET 2019-11-09 13:11:00 Yes 500 Twice A Day [facility] Sulfamethoxazole/Trimethoprim (Bactrim Ds Tablet) 1 Ea ch TABLET Sulfamethoxazole/Trimethoprim (Bactrim Ds Tablet) 1 Each TABLET 2019-11-09 13:11:00 Yes 1 Twice A Day [facility] Methocarbamol (Robaxin-750) 750 Mg TABLET Methocarbamo l (Robaxin-750) 750 Mg TABLET 2019-07-31 17:24:00 2019-11-09 00:00:00 No 750 Every 6 Hours as needed for Musc Spasms [facility] Diazepam (Valium) 5 Mg TABLET Diazepam (Valium) 5 Mg TABLET Yes as needed for Anxiety [facility] Metformin Hcl Metformin Hcl Yes 500 Twice A Day [facility] Vital Signs Vital Name Observation Time Observation Value Comments Source Weight 2019-11-09 12:31:00 254.06 [lb_av] [facility] BMI (Body Mass Index) 2019-11-09 12:31:00 30.9 kg/m2 [facility] Body Temperature 2019-07-31 17:42:00 98.4 [degF] [facility] Procedures This patient has no known procedures. Plan of Care Planned Activity Planned Date Details Comments Source Instructions Skin Abscess [facility] Instructions Cellulitis [facility] Encounters Start Date/Time End Date/Time Encounter Type Admission Type Attendi ng Clinicians Care Facility Care Department Encounter ID Source 2019-11-09 12:27:00 2019-11-09 12:27:00 Registered Emergency Room [facility] [id number] [facility] [place] 2019-07-31 15:18:00 2019-07-31 17:39:00 Departed Emergency Room 1 YUNIEL WILLIS [facility] [id number] [facility] 2018-12-11 05:10:00 2018-12-11 05:10:00 Emergency E [facility] [id number] [facility] 2018-08-30 21:41:00 2018-08-30 21:41:00 Registered Emergency Room [facility] [id number] [facility] 2018-04-01 11:35:00 2018-04-01 12:20:00 Outpatient Shira MUMTAZ COLUNGA [facility] [id number] [facility] 2018-01-20 00:00:00 2018-01-21 00:00:00 [facility] [id number] 2017-07-23 00:00:00 2017-07-23 00:00:00 [facility] [id number] Results Test Description Test Time Test Comments Results Result Comments Source BASIC METABOLIC PANEL 2020-02-06 08:39:00 Test Item SODIUM (test code = NA) 141 mmol/L 136-145 N POTASSIUM (test code = K) 3.9 mmol/L 3.5-5.1 N CHLORIDE (test code = CL) 110.0 mmol/L 98-107 H CARBON DIOXIDE (test code = CO2) 20.0 mmol/L 21-32 L ANION GAP (test code = GAP) 14.9 10-20 N GLUCOSE (test code = GLU) 193 mg/dL 74-106 H BLOOD UREA NITROGEN (test code = BUN) 17 mg/dL 7-18 N GLOMERULAR FILTRATION RATE (test code = GFR) > 60 mL/min >=60 Estimated GFR by using Modified MDRD formula.Chronic kidney disease is defined as either kidney damageor GFR <60 mL/min/1.73 m2 for >3 months. CREATININE (test code = CREAT) 1.10 mg/dL 0.7-1.3 N BUN/CREATININE RATIO (test code = BUN/CREA) 14.9 10-20 N CALCIUM (test code = CA) 8.9 mg/dL 8.5-10.1 N [id number] 08:39:00* Test Item Value Reference Range Interpretation Comments ALCOHOL (test code = ALC) 85 mg/dL 0.0-3.0 H -- INTERPRETIVE DATA NOTE: POSITIVE SCREENING RESULTS SHOULD BE CONSIDERED PRESUMPTIVE.WHEN COLLECTED FOR MEDICAL PURPOSES ONLY. SPECIMEN WILL NOTBE COLLECTED BY CHAIN OF CUSTODY.IF A CONFIRMATION OF POSITIVE RESULTS IS DESIRED, ACONFIRMATION TEST MUST BE REQUESTED BY THE PHYSICIAN AT ANADDITIONAL CHARGE TO THE PATIENT. BASIC METABOLIC [id number] 08:35:00* Test Item Value Reference Range Interpretation Comments SODIUM (test code = NA) 141 mmol/L 136-145 N POTASSIUM (test code = K) 3.9 mmol/L 3.5-5.1 N CHLORIDE (test code = CL) 110.0 mmol/L 98-107 H CARBON DIOXIDE (test code = CO2) mmol/L 21-32 ANION GAP (test code = GAP) 10-20 GLUCOSE (test code = GLU) mg/dL 74-106 BLOOD UREA NITROGEN (test code = BUN) mg/dL 7-18 GLOMERULAR FILTRATION RATE (test code = GFR) mL/min >=60 CREATININE (test code = CREAT) mg/dL 0.7-1.3 BUN/CREATININE RATIO (test code = BUN/CREA) 10-20 CALCIUM (test code = CA) mg/dL 8.5-10.1 [id number] 08:35:00* Test Item Value Reference Range Interpretation Comments ALCOHOL (test code = ALC) mg/dL 0-3 URINALYSIS [id number] 03:05:00* Test Item Value Reference Range Interpretation Comments UA COLOR (test code = COLU) Light-Yellow YELLOW UA APPEARANCE (test code = APPU) CLEAR CLEAR UA GLUCOSE DIPSTICK (test code = DGLUU) NEGATIVE mg/dL NEGATIVE UA BILIRUBIN DIPSTICK (test code = BILU) NEGATIVE mg/dL NEGATIVE UA KETONE DIPSTICK (test code = KETU) NEGATIVE mg/dL NEGATIVE UA SPECIFIC GRAVITY (test code = SGU) 1.015 1.001-1.035 UA BLOOD DIPSTICK (test code = LANI) 0.06 mg/dL (1+) mg/dL NEGATIVE A UA PH DIPSTICK (test code = NIRAV) 5.5 5.0-8.0 UA PROTEIN DIPSTICK (test code = PROU) 100 (2+) mg/dL NEGATIVE A UA UROBILINIOGEN DIPSTICK (test code = URO) Normal mg/dL NEGATIVE UA NITRITE DIPSTICK (test code = IDALMIS) NEGATIVE NEGATIVE UA LEUKOCYTE ESTERASE W REFLEX (test code = LEUUR) NEGATIVE Elijah/uL NEGATIVE UA WBC (test code = WBCU) 0-5 per HPF 0-5 UA RBC (test code = RBCU) 0-2 #/HPF 0-5 UA EPITHELIAL CELLS (test code = EPIU) None seen per HPF FEW UA BACTERIA (test code = BACU) FEW #/HPF NONE A UA HYALINE CAST (test code = HYALU) 0-2 #/LPF 0-5 UA MUCUS (test code = MUCU) FEW #/LPF FEW Urine Source? Clean CatchDRUGS OF ABUSE SCREEN [id number] 03:05:00* Test Item Value Reference Range Interpretation Comments URN COCAINE (test code = COCAURN) NEGATIVE <300 ng/mL URN CANNABINOIDS (test code = CANNABURN) NEGATIVE <50 ng/mL URN AMPHETAMINE (test code = AMPHETURN) NEGATIVE <1000 ng/mL URN BARBITURATE (test code = BARBITURN) NEGATIVE <200 ng/mL URN BENZODIAZEPINE (test code = BENZOURN) NEGATIVE <200 ng/mL URN OPIATES (test code = OPIATURN) NEGATIVE <300 ng/mL URN PHENCYCLIDINE (PCP) (test code = PHENCURN) NEGATIVE <25 ng/ mL URN METHADONE (test code = METHAURN) NEGATIVE <300 ng/mL Urine Source? Clean CatchBASIC METABOLIC [id number] 02:49:00* Test Item Value Reference Range Interpretation Comments SODIUM (test code = NA) 142 mmol/L 136-145 N POTASSIUM (test code = K) 3.9 mmol/L 3.5-5.1 N CHLORIDE (test code = CL) 108.0 mmol/L 98-107 H CARBON DIOXIDE (test code = CO2) 16.0 mmol/L 21-32 L ANION GAP (test code = GAP) 21.9 10-20 H GLUCOSE (test code = GLU) 169 mg/dL 74-106 H BLOOD UREA NITROGEN (test code = BUN) 17 mg/dL 7-18 N GLOMERULAR FILTRATION RATE (test code = GFR) > 60 mL/min >=60 Estimated GFR by using Modified MDRD formula.Chronic kidney disease is defined as either kidney damageor GFR <60 mL/min/1.73 m2 for >3 months. CREATININE (test code = CREAT) 1.30 mg/dL 0.7-1.3 N BUN/CREATININE RATIO (test code = BUN/CREA) 13.4 10-20 N CALCIUM (test code = CA) 9.6 mg/dL 8.5-10.1 N HEPATIC FUNCTION [id number] 02:49:00* Test Item Value Reference Range Interpretation Comments TOTAL PROTEIN (test code = PROT) 8.2 gram/dL 6.4-8.2 N ALBUMIN (test code = ALB) 4.1 g/dL 3.4-5.0 N GLOBULIN (test code = GLOB) 4.1 gram/dL 2.7-4.2 N ALBUMIN/GLOBULIN RATIO (test code = A/G) 1.0 0.75-1.50 N BILIRUBIN TOTAL (test code = BILT) 0.30 mg/dL 0.0-1.0 N BILIRUBIN DIRECT (test code = BILD) 0.09 mg/dL 0.0-0.20 N SGOT/AST (test code = AST) 32 IUnit/L 15-37 N SGPT/ALT (test code = ALT) 67 IUnit/L 12-78 N ALKALINE PHOSPHATASE TOTAL (test code = ALKP) 60 IUnit/L 45-117 N Note change in reference range due to change in reagent. [id number] 02:49:00* Test Item Value Reference Range Interpretation Comments ACETAMINOPHEN (test code = ACET) < 10 mcg/mL 10-30 L A RANGE OF 10-30 mcg/mL IS A THERAPEUTIC RANGE. TOXIC CONCENTRATIONS: >150 mcg/mL AT 4 HOURS AFTER INGESTION >= 50 mcg/mL AT 12 HOURS AFTER INGESTION [id number] 02:49:00* Test Item Value Reference Range Interpretation Comments SALICYLATE (test code = GABE) < 1.7 mg/dL 2.8-20.0 L [id number] 02:49:00* Test Item Value Reference Range Interpretation Comments ALCOHOL (test code = ALC) 191 mg/dL 0.0-3.0 H -- INTERPRETIVE DATA NOTE: POSITIVE SCREENING RESULTS SHOULD BE CONSIDERED PRESUMPTIVE.WHEN COLLECTED FOR MEDICAL PURPOSES ONLY. SPECIMEN WILL NOTBE COLLECTED BY CHAIN OF CUSTODY.IF A CONFIRMATION OF POSITIVE RESULTS IS DESIRED, ACONFIRMATION TEST MUST BE REQUESTED BY THE PHYSICIAN AT ANADDITIONAL CHARGE TO THE PATIENT. URINALYSIS [id number] 02:43:00* Test Item Value Reference Range Interpretation Comments UA COLOR (test code = COLU) Light-Yellow YELLOW UA APPEARANCE (test code = APPU) CLEAR CLEAR UA GLUCOSE DIPSTICK (test code = DGLUU) NEGATIVE mg/dL NEGATIVE UA BILIRUBIN DIPSTICK (test code = BILU) NEGATIVE mg/dL NEGATIVE UA KETONE DIPSTICK (test code = KETU) NEGATIVE mg/dL NEGATIVE UA SPECIFIC GRAVITY (test code = SGU) 1.015 1.001-1.035 UA BLOOD DIPSTICK (test code = LANI) 0.06 mg/dL (1+) mg/dL NEGATIVE A UA PH DIPSTICK (test code = NIRAV) 5.5 5.0-8.0 UA PROTEIN DIPSTICK (test code = PROU) 100 (2+) mg/dL NEGATIVE A UA UROBILINIOGEN DIPSTICK (test code = URO) Normal mg/dL NEGATIVE UA NITRITE DIPSTICK (test code = IDALMIS) NEGATIVE NEGATIVE UA LEUKOCYTE ESTERASE W REFLEX (test code = LEUUR) NEGATIVE Elijah/uL NEGATIVE UA WBC (test code = WBCU) 0-5 per HPF 0-5 UA RBC (test code = RBCU) 0-2 #/HPF 0-5 UA EPITHELIAL CELLS (test code = EPIU) None seen per HPF FEW UA BACTERIA (test code = BACU) FEW #/HPF NONE A UA HYALINE CAST (test code = HYALU) 0-2 #/LPF 0-5 UA MUCUS (test code = MUCU) FEW #/LPF FEW Urine Source? Clean CatchDRUGS OF ABUSE SCREEN [id number] 02:43:00* Test Item Value Reference Range Interpretation Comments URN COCAINE (test code = COCAURN) <300 ng/mL URN CANNABINOIDS (test code = CANNABURN) <50 ng/mL URN AMPHETAMINE (test code = AMPHETURN) <1000 ng/mL URN BARBITURATE (test code = BARBITURN) <200 ng/mL URN BENZODIAZEPINE (test code = BENZOURN) <200 ng/mL URN OPIATES (test code = OPIATURN) <300 ng/mL URN PHENCYCLIDINE (PCP) (test code = PHENCURN) <25 ng/ mL URN METHADONE (test code = METHAURN) <300 ng/mL Urine Source? Clean CatchURINALYSIS [id number] 02:42:00* Test Item Value Reference Range Interpretation Comments UA COLOR (test code = COLU) Light-Yellow YELLOW UA APPEARANCE (test code = APPU) CLEAR CLEAR UA GLUCOSE DIPSTICK (test code = DGLUU) NEGATIVE mg/dL NEGATIVE UA BILIRUBIN DIPSTICK (test code = BILU) NEGATIVE mg/dL NEGATIVE UA KETONE DIPSTICK (test code = KETU) NEGATIVE mg/dL NEGATIVE UA SPECIFIC GRAVITY (test code = SGU) 1.015 1.001-1.035 UA BLOOD DIPSTICK (test code = LANI) 0.06 mg/dL (1+) mg/dL NEGATIVE A UA PH DIPSTICK (test code = NIRAV) 5.5 5.0-8.0 UA PROTEIN DIPSTICK (test code = PROU) 100 (2+) mg/dL NEGATIVE A UA UROBILINIOGEN DIPSTICK (test code = URO) Normal mg/dL NEGATIVE UA NITRITE DIPSTICK (test code = IDALMIS) NEGATIVE NEGATIVE UA LEUKOCYTE ESTERASE W REFLEX (test code = LEUUR) NEGATIVE Elijah/uL NEGATIVE UA WBC (test code = WBCU) per HPF 0-5 UA RBC (test code = RBCU) per HPF 0-5 UA EPITHELIAL CELLS (test code = EPIU) per HPF Few UA BACTERIA (test code = BACU) per HPF NONE Urine Source? Clean CatchDRUGS OF ABUSE SCREEN [id number] 02:42:00* Test Item Value Reference Range Interpretation Comments URN COCAINE (test code = COCAURN) <300 ng/mL URN CANNABINOIDS (test code = CANNABURN) <50 ng/mL URN AMPHETAMINE (test code = AMPHETURN) <1000 ng/mL URN BARBITURATE (test code = BARBITURN) <200 ng/mL URN BENZODIAZEPINE (test code = BENZOURN) <200 ng/mL URN OPIATES (test code = OPIATURN) <300 ng/mL URN PHENCYCLIDINE (PCP) (test code = PHENCURN) <25 ng/ mL URN METHADONE (test code = METHAURN) <300 ng/mL Urine Source? Clean CatchBASIC METABOLIC [id number] 02:40:00* Test Item Value Reference Range Interpretation Comments SODIUM (test code = NA) 142 mmol/L 136-145 N POTASSIUM (test code = K) 3.9 mmol/L 3.5-5.1 N CHLORIDE (test code = CL) 108.0 mmol/L 98-107 H CARBON DIOXIDE (test code = CO2) mmol/L 21-32 ANION GAP (test code = GAP) 10-20 GLUCOSE (test code = GLU) mg/dL 74-106 BLOOD UREA NITROGEN (test code = BUN) mg/dL 7-18 GLOMERULAR FILTRATION RATE (test code = GFR) mL/min >=60 CREATININE (test code = CREAT) mg/dL 0.7-1.3 BUN/CREATININE RATIO (test code = BUN/CREA) 10-20 CALCIUM (test code = CA) mg/dL 8.5-10.1 HEPATIC FUNCTION [id number] 02:40:00* Test Item Value Reference Range Interpretation Comments TOTAL PROTEIN (test code = PROT) gram/dL 6.4-8.2 ALBUMIN (test code = ALB) g/dL 3.4-5.0 GLOBULIN (test code = GLOB) gram/dL 2.7-4.2 ALBUMIN/GLOBULIN RATIO (test code = A/G) 0.75-1.50 BILIRUBIN TOTAL (test code = BILT) mg/dL 0.0-1.0 BILIRUBIN DIRECT (test code = BILD) mg/dL 0.0-0.20 SGOT/AST (test code = AST) IUnit/L 15-37 SGPT/ALT (test code = ALT) IUnit/L 12-78 ALKALINE PHOSPHATASE TOTAL (test code = ALKP) IUnit/L 45-117 [id number] 02:40:00* Test Item Value Reference Range Interpretation Comments ACETAMINOPHEN (test code = ACET) mcg/mL 10-30 [id number] 02:40:00* Test Item Value Reference Range Interpretation Comments SALICYLATE (test code = GABE) mg/dL 2.8-20.0 [id number] 02:40:00* Test Item Value Reference Range Interpretation Comments ALCOHOL (test code = ALC) mg/dL 0-3 CBC W/O [id number] 02:27:00* Test Item Value Reference Range Interpretation Comments WHITE BLOOD CELL (test code = WBC) 11.0 K/mm3 4.5-12.5 N RED BLOOD CELL (test code = RBC) 4.85 mill/mm3 4.0-5.8 N HEMOGLOBIN (test code = HGB) 14.3 gram/dL 13.0-17.5 N HEMATOCRIT (test code = HCT) 43.7 % 42.0-52.0 N MEAN CELL VOLUME (test code = MCV) 90.1 fL 80-98 N MEAN CELL HGB (test code = MCH) 29.5 picogram 27.0-33.0 N MEAN CELL HGB CONCETRATION (test code = MCHC) 32.7 gram/dL 33.0-36. 0 L RED CELL DISTRIBUTION WIDTH (test code = RDW) 13.3 % 11.6-16. 2 N PLATELET COUNT (test code = PLT) 293 K/mm3 150-450 N MEAN PLATELET VOLUME (test code = MPV) 9.4 fL 6.7-11.0 N CBC W/O [id number] 02:22:00* Test Item Value Reference Range Interpretation Comments WHITE BLOOD CELL (test code = WBC) K/mm3 4.5-12.5 RED BLOOD CELL (test code = RBC) mill/mm3 4.0-5.8 HEMOGLOBIN (test code = HGB) 14.3 gram/dL 13.0-17.5 N HEMATOCRIT (test code = HCT) 43.7 % 42.0-52.0 N MEAN CELL VOLUME (test code = MCV) fL 80-98 MEAN CELL HGB (test code = MCH) picogram 27.0-33.0 MEAN CELL HGB CONCETRATION (test code = MCHC) gram/dL 33.0-36. 0 RED CELL DISTRIBUTION WIDTH (test code = RDW) % 11.6-16. 2 PLATELET COUNT (test code = PLT) 293 K/mm3 150-450 N MEAN PLATELET VOLUME (test code = MPV) fL 6.7-11.0 [id number] 13:30:00* Test Item Value Reference Range Interpretation Comments Accuchek (test code = ACU) 182 mg/dL 70-110 H - XR TIBIA/FIBULA 2 V [id number] 01:42:00 FAX: Arnel Heard MD [phone] Agar: St: REG Name: Elba ISABELBRODIE Arreola [facility] : [birth year] Age/S: 39/M [address] [place] [address] Unit #: [id number] Loc: G.ERS[address] [place] [address] Phys: Arnel Franco MD Acct: [id number] Dis Date: Status: REG ER PHONE #: [phone] Exam Date: 10/06/2019 0141 FAX #: [phone] Reason: pain with trauma EXAMS: CPT CODE: [id number] XR TIBIA/FIBUL[place] 2 [place] [address] Study: - XR TIBIA/FIBULA 2 V LT 1:24 AM Patient Name: BRODIE BURROUGHS MR: [id number] : 1980; Age: 39 years y/o Male Ordering Physician: Arnel barron MD Clinical Indication: Left tibia and fibula pain relat ed to a laceration above the ankle. Comparison: None LEFT TIBIA AND FIBULA, 2 views: IMPRESSION: No acute fracture, dislocation, or suspicious focal osseous lesion. Small bone island distally in the left tibia on the lateral image. Mild soft tissue thickening adjacent to the ankle, greatest anteriorly. No radiopaque foreign body is appreciated. Subcentimeter density seen overlying the mid left fibula on the last lat eral image is not seen on the remaining images covering the same region suggesting artifact. SL: TPAINTER-H at 0142 Reported and signed by: Moshe Lopez M.D. CC: Arnel Franco MD Technologist: RT Terrance(Merlyn) Trnscrd Date/Time/By: 10/06/2019 (014) : By: [email or web address] Jairon g Print D/T: S: 10/06/2019 (014) PAGE [address] LUMBAR SPINE WITHOUT-HOPD 2019-07-31 18:03:00 [place] [address] Patient Name: BRODIE BURROUGHS MR #: [id number] : 1980 Age/Sex: 39/M Req #: [id number] Adm Physician: Ordered by: YUNIEL WILLIS MD Report #: [id number] Location: FS Room/Bed: Procedure: HOPD/CT LUMBAR SPINE WITHOUT-HOPD Exam Date: 07/31/19 Exam Time: 1720 REPORT STA TUS: Signed CT LUMBAR SPINE WITHOUT-HOPD HISTORY: 39-year-old male who f ell backwards while carrying a television set. COMPARISON: None. TECH NIQUE: Axial CT images of the lumbar spine were obtained without contrast. C oronal and sagittal reconstructions obtained from the axial data. One or more of the following dose reduction techniques were used: Automated exposure cont rol, adjustment of the mA and/or kV according to patient size, and/or utilizat ion of iterative reconstruction technique. DISCUSSION: There are 5 n onrib-bearing lumbar vertebral bodies. Straightening of normal lumbar lordosis is either positional or due to muscle spasm. There is no significant scolio sis or subluxation. No fracture, compression deformity, or destructive osseous lesion is seen. No gross spinal canal mass is seen. The paravertebral and p araspinal soft tissues are unremarkable. The disc spaces are preserved. L1-L2: No gross canal or foraminal stenosis. L2-L3: No gross canal or fo raminal stenosis. L3-L4: No gross canal or foraminal stenosis. L4-L5: No gross canal or foraminal stenosis. L5-S1: No gross canal or foraminal st enosis. IMPRESSION: No acute osseous abnormalities. Ligament, spinal cord and or vascular abnormalities cannot be excluded on the basis of this examination This preliminary report was issued by Dr. El Dill neuroradiology fellow at 1810 hours on 07/31/2019. I have reviewed the im ages and agree with findings in the preliminary report. Signed by: Dr. Jesse Foreman M.D. on 07/31/2019 8:24 PM Dictated By: TRIXIE FOREMAN MD E lectronically Signed By: TRIXIE FOREMAN MD on 07/31/192023 Transcribed By: RENE HILL on 07/31/192023 COPY TO: YUNIEL WILLIS MD CT C-SPINE W/O - [id number] 17:57:00 [place] [address] Patient Name: BRODIE BURROUGHS MR #: [id number] : 1980 Age/Sex: 39/M Req #: [id number] Adm Physician: Ordered by: YUNIEL WILLIS MD Report #: [id number] Location: [facility] Room/Bed: Procedure: 022 1-0013 HOPD/CT C-SPINE W/O - HOPD Exam Date: 07/31/19 Exam Time: 1709 REPORT STATUS: Si gned CT C-SPINE W/O - HOPD HISTORY: 39-year-old male status post slip an d fall. COMPARISON: None. TECHNIQUE: CT of the cervical spine without contrast. Sagittal and coronal reformations were created. One or more of th e following dose reduction techniques were used: Automated exposure control, a djustment of the mA and/or kV according to patient size, and/or utilization of iterative reconstruction technique. FINDINGS: Evaluation is slightly limited secondary to imaging artifact in the lower cervical spine due to beam hardening and photon starvation. Cervical lordosis is preserved. There i s no scoliosis or subluxation. No fractures, compression deformity, or destruc tive osseous lesions are seen. Mild degenerative disc changes at C4-C5, C5-C 6 and C6-C7 with posterior disc osteophyte complexes at C5-C6. No canal stenos is. C4-C5: Mild bilateral foraminal stenosis due to facet and uncovertebral arthrosis. C5-C6: Mild left foraminal stenosis due to facet and uncovertebral arthrosis C7-T1: Mild right foraminal stenosis due to uncovertebral arthrosis. The craniocervical junction is intact. No gross spinal canal masses are seen. The paravertebral and paraspinal soft tissues are unremarkable. Lung apices are unremarkable specifically no apical pneumothoraces. IMPR ESSION: 1. No acute osseous abnormalities in spite of limitations from imag ing artifact. 2. Mild cervical spondylosis as above. 3. Ligament, spinal cord and or vascular abnormalities cannot be excluded on the basis of this ex amination. This preliminary report was issued by Dr. El kumar uroradiology fellow at 1804 hours on 07/31/2019. 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 Signed by: Dr. Trixie Foreman M.D. on 07/31/2019 8:21 PM Dict ated By: TRIXIE FOREMAN MD 20 COPY TO: FARHAD WILLIS SE, MD CT BRAIN [id number] 17:39:00 [place] [address] Patient Name: BRODIE BURROUGHS MR #: [id number] : 1980 Age/Sex: 39/M Req #: [id number] Adm Physician: Ordered by: YUNIEL WILLIS MD Report #: [id number] Location: [facility] Room/Bed: Procedure: 022 HOPD/CT BRAIN WO-HOPD Exam Date: 07/31/19 Exa m Time: 1707 REPORT STATUS: Signed CT BRAIN WO-HOPD HISTORY: Status post slip and fall COMPARISON: No ne. TECHNIQUE: Noncontrast axial scans were obtained from skull base to the vertex. Coronal and sagittal reconstructions obtained from the axial data . One or more of the following dose reduction techniques were used: Automated exposure control, adjustment of the mA and/or kV according to patient size, a nd/or utilization of iterative reconstruction technique. DISCUSSION: Scalp/Skull: Convex hyperdense 4.9 cm superior biparietal scalp hematoma with mild adjacent fat stranding (series 401 image 58). No skull fracture. Brain s ulci: Appropriate for patient's age. Ventricles: Normal in size and configurat ion. No hydrocephalus. Extra-axial spaces: A focal cleft with CSF density ext ends from the quadrigeminal cistern posteriorly along the left superior cerebe llar hemisphere (series 2 images 12-14), may represent a tiny arachnoid cyst. Parenchyma: No abnormal density No mass, hemorrhage, or large vascula r territory acute infarct. Dural sinuses: No abnormal densities. Sellar/ Suprasellar region: Intact. No masses. Skull base: Intact. Incidental findin gs: Mild mucosal thickening in bilateral ethmoid sinuses. IMPRESSION: 1. No acute intracranial abnormalities or skull fracture. 2. Minimal biparie mann scalp hematoma. This preliminary report was issued by Dr. El riggs M.D. neuroradiology fellow at 1755 hours on 07/31/2019. I have reviewed the images and agree with findings in the preliminary report. Signed by: Dr. Bubba Foreman M.D. on 07/31/2019 8:16 PM Dictated By: TRIXIE FOREMAN MD 15 Transcribed By: MARIAN on 07/31/192015 COPY TO: YUNIEL WILLIS MD Chemistry 2018-12-19 07:27:00* Test Item Value Reference Range Interpretation Comments Chemistry (test code = ETOH) 64 mg/dL Less than 10 H The pharmacological response to blood alcohol levels mayvary from individual to individual. Negative: Less than 10 mg/dL Toxic: 50 - 100 mg/dL Depression of MALTED MILK MASHER: Greater than 100 mg/dL Fatalities reported: Greater than 400 mg/dL Ofkiwapimp5924-91-11 07:03:00* Test Item Value Reference Range Interpretation [...] NotDetected Toxicology (test code = MTCUTOFF) The [employer] Profile-V Panel for Qualitative Drugs ofAbuse assays [...] fortwo weeks. Urine Source: Urine VoidedChemistry - Mmhnrirp4926-59-24 05:59:00* Test Item Value Reference Range Interpretation Comments Chemistry - Specials (test code = TSH3) 0.4760 uIU/mL 0.35-4.94 N Lhaaonlcw2437-17-17 05:42:00* Test Item Value Reference Range Interpretation [...] code = ALT) 46 U/L 8-55 N Ifgcjwgqc2659-29-01 05:42:00* Test Item Value Reference Range Interpretation Comments Chemistry (test code = CK) 354 U/L 30-200 H Bdpxrxfcx8555-07-81 05:42:00* Test Item Value Reference Range Interpretation [...] Toxic: 50 - 100 mg/dL Depression of MALTED MILK MASHER: Greater than 100 mg/dL Fatalities reported: Greater than 400 mg/dL Chemistry (test code = SALCY) Less than 8.0 mg/dL 15.0-30.0 L Asgeqvdsmr4080-22-00 05:18:00* Test Item Value Reference Range Interpretation [...] 12:07:30CT abdomen and pelvis with contrastLocation Code: [id number] HISTORY:Right flank painCOMPARISON: NoneTechnique: Helical CT of [...] spleen are unremarkable.The unopacified loops of bowel demonstrat e no focal thickening or dilatation.The appendix is [...] NotDetected Toxicology (test code = MTCUTOFF) The [employer] Profile-V Panel for Qualitative Drugs ofAbuse assays [...] What drug is suspected? cocaineUrine Source: Urine HfkrfyObytfqbqy5442-88-96 09:28:00* Test Item Value Reference Range Interpretation [...] - 4.0 Protection probable: Less than 2.7 Hbzrwtywd1227-24-79 07:38:00* Test Item Value Reference Range Interpretation Comments Chemistry (test code = TROPI-T) 0.027 ng/mL < 0.028 Reference Range 0.00 - 0.028 ng/mL Negative 0.029 - 0.29 ng/mL Indeterminate Greater or Equal to 0.3 ng/mL Strongly suggests MO Hgurxrjmk3524-03-20 05:03:00* Test Item Value Reference Range Interpretation Comments Chemistry (test code = TROPI-T) 0.031 ng/mL < 0.028 H Reference Range 0.00 - 0.028 ng/mL Negative 0.029 - 0.29 ng/mL Indeterminate Greater or Equal to 0.3 ng/mL Strongly suggests MO Chemistry - BNP, HgbA1c, [id number] 02:00:00* Test Item Value Reference Range Interpretation Comments Chemistry - BNP, HgbA1c, PTHi (test code = BNP) 89.9 pg/mL 0-100 N Nebdgrkgw6626-16-19 01:46:00* Test Item Value Reference Range Interpretation [...] code = ALT) 24 U/L 8-55 N Orapmqqnuv9631-31-20 01:35:00* Test Item Value Reference Range Interpretation [...] code = BASO#) 0.1 thou/uL 0.0-0.2 N Ulfcsxilr5450-67-99 01:14:00* Test Item Value Reference Range Interpretation Comments Chemistry (test code = CKMBM-T) 5.9 ng/mL 0-6.6 N Chemistry (test code = TROPI-T) 0.042 ng/mL < 0.028 H Reference Range 0.00 - 0.028 ng/mL Negative 0.029 - 0.29 ng/mL Indeterminate Greater or Equal to 0.3 ng/mL Strongly suggests MO Jxufkobbv2911-49-57 01:10:00* Test Item Value Reference Range Interpretation Comments Chemistry (test code = CK) 276 U/L 30-200 H Chemistry - BNP, HgbA1c, MRGj7244-46-42 20:29:00* Test Item Value Reference Range Interpretation Comments Chemistry - BNP, HgbA1c, PTHi (test code = BNP) 40.2 pg/mL 0-100 N Xypbkwfin7591-98-58 20:28:00* Test Item Value Reference Range Interpretation Comments Chemistry (test code = CKMBM-T) 4.5 ng/mL 0-6.6 N Chemistry (test code = TROPI-T) 0.027 ng/mL < 0.028 Reference Range 0.00 - 0.028 ng/mL Negative 0.029 - 0.29 ng/mL Indeterminate Greater or Equal to 0.3 ng/mL Strongly suggests MO Wqixavrwe3422-04-36 20:24:00* Test Item Value Reference Range Interpretation [...] code = ALT) 26 U/L 8-55 N Uojqdlsdq8758-53-74 20:24:00* Test Item Value Reference Range Interpretation Comments Chemistry (test code = CK) 325 U/L 30-200 H Eivphqckvq5044-96-54 20:03:00* Test Item Value Reference Range Interpretation [...] code = BASO#) 0.1 thou/uL 0.0-0.2 N Ohcixaago6120-26-42 18:47:00* Test Item Value Reference Range Interpretation [...] code = ALT) 26 U/L 8-55 N Hrxxadhmsr5098-13-46 18:43:00* Test Item Value Reference Range Interpretation [...] = UABLD) Negative Negative Urine Source: Urine DrpqyfNdoehpoczk5552-36-23 18:22:00* Test Item Value Reference Range Interpretation [...] code = BASO#) 0.1 thou/uL 0.0-0.2 N Yghbrybdf2878-48-37 05:54:00* Test Item Value Reference Range Interpretation [...] code = CA) 9.3 mg/dL 7.8-10.44 N Aavbwuiti7881-45-56 05:54:00* Test Item Value Reference Range Interpretation Comments Chemistry (test code = CK) 477 U/L 30-200 H Mktcdtjum4343-36-85 06:14:00* Test Item Value Reference Range Interpretation [...] code = CA) 8.9 mg/dL 7.8-10.44 N Eiknlsvzd2942-46-95 06:14:00* Test Item Value Reference Range Interpretation Comments Chemistry (test code = CK) 673 U/L 30-200 H Buknhuebq3722-49-66 06:14:00* Test Item Value Reference Range Interpretation [...] - 4.0 Protection probable: Less than 2.7 Bnaevxmzew7553-01-54 05:53:00* Test Item Value Reference Range Interpretation [...] code = BASO#) 0.1 thou/uL 0.0-0.2 N Xpxssmsze1969-45-25 19:45:00* Test Item Value Reference Range Interpretation Comments Chemistry (test code = TROPI-T) 0.056 ng/mL < 0.028 H Reference Range 0.00 - 0.028 ng/mL Negative 0.029 - 0.29 ng/mL Indeterminate Greater or Equal to 0.3 ng/mL Strongly suggests MO Aqjyxaday6941-29-18 17:06:00* Test Item Value Reference Range Interpretation Comments Chemistry (test code = TROPI-T) 0.063 ng/mL < 0.028 H Reference Range 0.00 - 0.028 ng/mL Negative 0.029 - 0.29 ng/mL Indeterminate Greater or Equal to 0.3 ng/mL Strongly suggests MO Hlkhrpgein3249-83-19 15:28:00* Test Item Value Reference Range Interpretation [...] NotDetected Toxicology (test code = MTCUTOFF) The [employer] Profile-V Panel for Qualitative Drugs ofAbuse assays [...] are held fortwo weeks. Urine Source: Urine CiqshjMckxerhimm9552-87-62 15:22:00* Test Item Value Reference Range Interpretation [...] Negative Negative Urine Source: Urine VoidedChemistry - Hkbnzyow3601-89-15 15:05:00* Test Item Value Reference Range Interpretation Comments Chemistry - Specials (test code = TSH3) 0.4726 uIU/mL 0.35-4.94 N Ughbklsbw2894-22-85 14:45:00* Test Item Value Reference Range Interpretation Comments Chemistry (test code = PHOS) 2.6 mg/dL 2.3-4.7 N Gxamyecrn6343-49-20 14:45:00* Test Item Value Reference Range Interpretation Comments Chemistry (test code = MG) 1.8 mg/dL 1.6-2.6 N Hmjapupxs6937-75-61 14:17:00* Test Item Value Reference Range Interpretation Comments Chemistry (test code = CCCK) ANGIE.[id number]@1416 Chemistry (test code = CKMBM-T) 7.9 ng/mL 0-6.6 HH Critical value! Chemistry (test code = TROPI-T) 0.042 ng/mL < 0.028 H Reference Range 0.00 - 0.028 ng/mL Negative 0.029 - 0.29 ng/mL Indeterminate Greater or Equal to 0.3 ng/mL Strongly suggests MO Ivothyywf8953-53-02 14:14:00* Test Item Value Reference Range Interpretation [...] code = ALT) 29 U/L 8-55 N Gbokqecoq4447-78-17 14:14:00* Test Item Value Reference Range Interpretation Comments Chemistry (test code = CK) 1049 U/L 30-200 H Xpdmxcocz2567-75-80 14:14:00* Test Item Value Reference Range Interpretation Comments Chemistry (test code = LIP) 54 U/L 8-78 N Nnbtowfkka8385-56-72 13:39:00* Test Item Value Reference Range Interpretation [...] code = BASO#) 0.1 thou/uL 0.0-0.2 N Avpsmtklp2241-06-07 04:22:00* Test Item Value Reference Range Interpretation Comments Chemistry (test code = TROPI-T) 0.038 ng/mL < 0.028 H Reference Range 0.00 - 0.028 ng/mL Negative 0.029 - 0.29 ng/mL Indeterminate Greater or Equal to 0.3 ng/mL Strongly suggests MO Hjymwibsv4845-77-84 02:00:00* Test Item Value Reference Range Interpretation [...] code = ALT) 33 U/L 8-55 N Imvetpwldb7610-72-58 01:58:00* Test Item Value Reference Range Interpretation [...] code = BASO#) 0.1 thou/uL 0.0-0.2 N Blztdztmc1428-75-61 01:41:00* Test Item Value Reference Range Interpretation Comments Chemistry (test code = CCCK) ERS.DEC@0141 Chemistry (test code = CKMBM-T) 7.8 ng/mL 0-6.6 HH Critical value! Chemistry (test code = TROPI-T) 0.048 ng/mL < 0.028 H Reference Range 0.00 - 0.028 ng/mL Negative 0.029 - 0.29 ng/mL Indeterminate Greater or Equal to 0.3 ng/mL Strongly suggests MO [facility] BRODIE BURROUGHS Intentio Phys: [place] [address] : 1980 Age: 38 SEX:M [phone] Exam Date: 12/19/18 Status: REG ER Acct: [id number] Loc: ERS Pt Unit #: [id number] Report #: [id number] CC: Ashok Martinez DO IMAGING SERVICES REPORT Order # Category/Exam [id number] RAD/XR Chest 1 View Portable ([id number]): . Results PORTABLE CHEST: Date: 12/19/18 COMPARISON: 06/07/17. HISTORY: Drug overdose. FINDINGS: Heart size appears slightly enlarged. Mediastinal structures are unremarkable. Lungs are clear of infiltrates. The film is of poor inspiration. IMPRESSION: Borderline heart size, somewhat difficult to assess due to portable technique and poor inspiration. POS: [facility] Reported By: Juno Daniels MD Electronically Signed Date/Time: 12/19/18 0857 Technologist: KALLIE Dictated Date/Time: 12/19/18 0736 Transcribed Date/Time: 12/19/18 0723
== END 2020-02-20 15:49 | disposition home or self-care (01) ==
LOC: FSED 14:50
DX: J02.9 Acute pharyngitis, unspecified (principal); H66.91 Otitis media, unspecified, right ear; F41.9 Anxiety disorder, unspecified; E11.9 Type 2 diabetes mellitus without complications; J45.909 Unspecified asthma, uncomplicated; Z85.53 Personal history of malignant neoplasm of renal pelvis
CPT/HCPCS: 96372; 99282; J0696; J2001

== ENCOUNTER 2020-03-29 02:21 | Emergency (ER) | payer BC ==
[~2020-03-29] VITALS: Ht 193 cm; Wt 117.9 kg
[~2020-03-29 02:21] MED LIST changes: +CEFDINIR300 MG PO
[2020-03-29] MEDS ORDERED: ACETAMINOPHEN 325 MG TAB PO ONE (02:45)
[2020-03-29] MEDS ORDERED: ONDANSETRON HCL 4 MG ORAL DISINTEGRATING TAB PO ONE (02:45)
[2020-03-29] MEDS ORDERED: KETOROLAC TROMETHAMINE 30 MG/ML VIAL IM ONE (02:45)
[2020-03-29] MEDS ORDERED: ZANAFLEX4 MG PO (02:48)
[2020-03-29] MEDS ORDERED: TYLENOL # 31 EA PO (02:48)
[2020-03-29] MEDS ORDERED: IBUPROFEN IB200 MG PO (02:48)
--- NOTE | 2020-03-29 03:13 | Diagnostic Imaging Report ---
Lumbar Spine Radiographs: 3 views HISTORY: Pain. COMPARISON: Lumbar spine CT 07/31/2019 DISCUSSION: Some of the osseous structures are partially obscured by stool and bowel gas. There are five non-rib bearing lumbar vertebral bodies. The alignment of the spine is within normal limits. No displaced fracture or compression deformity is identified. Disc Spaces: The disc spaces are well maintained. Facets: The facet joints are unremarkable. IMPRESSION: No acute radiographic abnormality. Signed by: Patricio Baig DO on 03/29/2020 3:10 AM
[2020-03-29] MEDS ORDERED: ULTRAM 50MG50 MG PO (03:27)
--- NOTE | 2020-03-29 03:28 | Emergency Department Note ---
History of Present Illnes History of Present Illness Chief Complaint: Back Pain History of Present Illness This is a 39 year old male c/o acute on chronic lower back pain for few days. He has hx of chronic back pain for years, waiting for MRI but never actually sought help. He lift some heave stuff few days ago and the pain came back . Historian: Patient Arrival Mode: Car Onset (how long ago): day(s) Radiation: Reports back, Reports extremity Severity: moderate Onset quality: gradual Duration (how long): day(s) Progression: worsening Chronicity: recurrent Context: Reports trauma/injury Relieving factors: immobilization Exacerbating factors: other (sitting) Associated symptoms: Reports denies other symptoms Treatments prior to arrival: none Past Medical/Family History Physician Review I have reviewed the patient's past medical and family history. Any updates have been documented here. Past Medical History Recent Fever: No Clinical Suspicion of Infectio: No New/Unexplained Change in Ment: No Past Medical History: Diabetes, Asthma, Anxiety Other Medical History: renal cell carcinoma Past Surgical History: T&A Other Surgery: right partial nephrectomy Social History Smoking Cessation: Never Smoker Counseling Performed: No Alcohol Use: None Any Illegal Drug Use: No Other Last Tetanus: 09/2019 Any Pre-Existing Lines (PICC,: No Review of Systems Review of Systems Constitutional: Reports no symptoms EENTM: Reports no symptoms Cardiovascular: Reports no symptoms Respiratory: Reports no symptoms Gastrointestinal: Reports no symptoms Genitourinary: Reports no symptoms Musculoskeletal: Reports as per HPI Integumentary: Reports no symptoms Neurological: Reports no symptoms Psychological: Reports no symptoms Endocrine: Reports no symptoms Hematological/Lymphatic: Reports no symptoms Physical Exam Related Data Allergies: Coded Allergies: No Known Allergies (Unverified , 08/30/18) Triage Vital Signs Vital Signs Date Time Temp Pulse Resp B/P (MAP) Pulse Ox O2 Delivery O2 Flow Rate FiO2 03/29/20 02:30 98.5 85 18 146/85 98 Room Air Vital signs reviewed: Yes Physical Exam CONSTITUTIONAL Constitutional: Present well-developed, Present well-nourished HENT HENT: Present normocephalic, Present atraumatic, Present oropharynx clear/moist, Present nose normal HENT L/R: Present left ext ear normal, Present right ext ear normal EYES Eyes: Reports PERRL, Reports conjunctivae normal NECK Neck: Present ROM normal PULMONARY Pulmonary: Present effort normal, Present breath sounds normal CARDIOVASCULAR Cardiovascular: Present regular rhythm, Present heart sounds normal, Present capillary refill normal, Present normal rate GASTROINTESTINAL Abdominal: Present soft, Present nontender, Present bowel sounds normal GENITOURINARY Genitourinary: Present exam deferred SKIN Skin: Present warm, Present dry MUSCULOSKELETAL Musculoskeletal: Present ROM normal NEUROLOGICAL Neurological: Present alert, Present oriented x 3, Present no gross motor or sensory deficits PSYCHOLOGICAL Psychological: Present mood/affect normal, Present judgement normal Results Imaging Imaging results reviewed: Yes Impressions no acute Assessment & Plan Medical Decision Making MDM sciatica, herniated disk, pt has no fever, doubt diskitis Assessment & Plan Final Impression: (1) Acute pain due to trauma (2) Sciatica associated with disorder of lumbosacral spine (3) Sciatica of right side Depart Disposition: HOME, SELF-CARE Last Vital Signs Date Time Temp Pulse Resp B/P (MAP) Pulse Ox O2 Delivery O2 Flow Rate FiO2 03/29/20 02:30 98.5 85 18 146/85 98 Room Air Home Meds Active Scripts Tramadol Hcl* (ULTRAM 50MG*) 50 Mg Tab, 50 MG PO Q6H PRN for pain, #30 TAB Prov:ALVINO HUMPHRIES MD 03/29/20 Ibuprofen (IBUPROFEN IB) 200 Mg Tablet, 3 TAB PO Q6H PRN for pain, #60 Prov:ALVINO HUMPHRIES MD 03/29/20 Tizanidine Hcl (ZANAFLEX) 4 Mg Tablet, 1 TAB PO Q8H PRN for back pain, #30 Prov:ALVINO HUMPHRIES MD 03/29/20 Cefdinir (OMNICEF) 300 Mg Capsule, 300 MG PO BID, #20 CAP Prov:JANELLE CRAWFORD 02/20/20 Naproxen (NAPROSYN) 500 Mg Tablet, 500 MG PO BID, #20 TAB Prov:JANELLE CRAWFORD 11/09/19 Sulfamethoxazole/Trimethoprim (BACTRIM DS TABLET) 1 Each Tablet, 1 TAB PO BID for 10 Days, #20 TAB Prov:JANELLE CRAWFORD 11/09/19 Reported Medications Diazepam (VALIUM) 5 Mg Tablet, PRN for ANXIETY 11/09/19 Metformin Hcl (METFORMIN HCL) 500 Mg Tablet, 500 MG PO BID, #60 TAB 11/09/19 Discontinued Scripts Acetaminophen/Codeine* (TYLENOL # 3*) 1 Ea Tab, 1 TAB PO Q4HR PRN for pain or cough, #30 Prov:ALVINO HUMPHRIES MD 03/29/20 Physician Attestation Provider Attestation [employer] THER[employer]IST web site check: score 550, no active med at this time, rec him to f/u PCP for MRI ALVINO HUMPHRIES MD Mar 29, 2020 03:10
--- OUTSIDE RECORDS SUMMARY | 2020-03-29 09:35 | XMS REPORT | Continuity of Care Document ---
Author Author [facility] t Organization [facility] Address [address] [place] [address] Phone Unavailable Care Team Providers Care Wash Crew Person Name Role Phone NONSTAFF PCP Unavailable Dain HUMPHRIES Attphys Unavailable PATRICIO RANDOLPH Attphys Unavailable Merlyn WILLIS Attphys Unavailable PROVIDER, TEMP ED Attphys Unavailable DR MUMTAZ COLUNGA Attphys Unavailable CALI CORTEZ Attphys Unavailable ANGY KAUR Attphys Unavailable ERICK BRADLEY Attphys Unavailable DR MUMTAZ COLUNGA Admphys Unavailable CALI CORTEZ Admphys Unavailable ANGY KAUR Admphys Unavailable Payers Payer Name Policy Type Policy Number Effective Date Expiration Date [facility] Exchange [id number] 2019 00:00:00 [facility] [id number] 2018 00:00:00 [facility] Problems Condition Name Condition Details Condition Category Status Onset Date Resolution Date Last Treatment Date Treating Clinician Comments Source Otitis media Problem Active [facility] Acute pharyngitis Problem Active [facility] Acute pain due to trauma Problem Active [facility] Sciatica of right side Problem Active [facility] Allergies, Adverse Reactions, Alerts Allergy Name Allergy Type Status Severity Reaction(s) Onset Date Inacti ve Date Treating Clinician Comments Source No Known Allergies DA Active U 2019-10-06 00:00:00 [facility] No Known Contrast Allergies DA Active U 2004-01-16 00:00: 00 [facility] No Known Drug Allergies DA Active U 2004-01-16 00:00:00 [facility] No Known Food Allergies DA Active U 2004-01-16 00:00:00 [facility] No Known Other Allergies DA Active U 2004-01-16 00:00:00 [facility] Social History Social Habit Start Date Stop Date Quantity Comments Source Sex Assigned At 1980 00:00:00 1980 00:00:00 Male [facility] Medications Ordered Medication Name Filled Medication Name Start Date Stop Da te Current Medication? Ordering Clinician Indication Dosage Frequency Signature (SIG) Comments Components Source Tramadol Hcl (Ultram 50MG*) 50 Mg TAB Tramadol Hcl (Ultram 5 0MG*) 50 Mg TAB 2020-03-29 03:27:00 Yes 50 Every 6 Hours as n eeded for Pain [facility] Ibuprofen (Ibuprofen Ib) 200 Mg TABLET Ibuprofen (Ibuprofen Ib) 200 Mg TABLET 2020-03-29 02:48:00 Yes 3 Every 6 Hours as n eeded for Pain [facility] Tizanidine Hcl (Zanaflex) 4 Mg TABLET Tizanidine Hcl (Zanafl ex) 4 Mg TABLET 2020-03-29 02:48:00 Yes 1 Every 8 Hours as n eeded for Back Pain [facility] Acetaminophen/Codeine Phosphate (Tylenol # 3*) 1 Ea TA B Acetaminophen/Codeine Phosphate (Tylenol # 3*) 1 Ea TAB 2020-03-29 02:48:00 2020-03-29 00:00:00 No 1 Every 4 Hours as needed for Pain Or Cough [facility] Cefdinir (Omnicef) 300 Mg CAPSULE Cefdinir (Omnicef) 300 Mg CAPSULE 2020-02-20 15:14:00 Yes 300 Twice A Day [facility] Naproxen (Naprosyn) 500 Mg TABLET Naproxen (Naprosyn) 500 Mg TABLET 2019-11-09 13:11:00 Yes 500 Twice A Day [facility] Sulfamethoxazole/Trimethoprim (Bactrim Ds Tablet) 1 Ea ch TABLET Sulfamethoxazole/Trimethoprim (Bactrim Ds Tablet) 1 Each TABLET 2019-11-09 13:11:00 Yes 1 Twice A Day [facility] Methocarbamol (Robaxin-750) 750 Mg TABLET Methocarbamo l (Robaxin-750) 750 Mg TABLET 2019-07-31 17:24:00 2019-11-09 00:00:00 No 750 Every 6 Hours as needed for Musc Spasms [facility] Diazepam (Valium) 5 Mg TABLET Diazepam (Valium) 5 Mg TABLET Yes as needed for Anxiety [facility] Metformin Hcl Metformin Hcl Yes 500 Twice A Day [facility] Vital Signs Vital Name Observation Time Observation Value Comments Source Weight 2020-03-29 02:30:00 260 [lb_av] [facility] BMI (Body Mass Index) 2020-03-29 02:30:00 31.6 kg/m2 [facility] Weight 2020-02-20 14:38:00 260 [lb_av] [facility] BMI (Body Mass Index) 2020-02-20 14:38:00 44.6 kg/m2 [facility] Weight 2019-11-09 12:31:00 254.06 [lb_av] [facility] BMI (Body Mass Index) 2019-11-09 12:31:00 30.9 kg/m2 [facility] Body Temperature 2019-07-31 17:42:00 98.4 [degF] [facility] Procedures This patient has no known procedures. Plan of Care Planned Activity Planned Date Details Comments Source Instructions Sciatica [facility] Encounters Start Date/Time End Date/Time Encounter Type Admission Type [facility] Care Department Encounter ID Source 2020-03-29 02:40:00 2020-03-29 03:55:00 Departed Emergency Room 1 ALVINO HUMPHRIES [facility] [id number] [facility] kes - Patients [facility] 2020-02-20 14:50:00 2020-02-20 15:49:00 Departed Emergency Room [facility] [id number] [facility] 2019-11-09 12:27:00 2019-11-09 13:15:00 Departed Emergency Room [facility] [id number] [facility] 2019-07-31 15:18:00 2019-07-31 17:39:00 Departed Emergency Room 1 YUNIEL WILLIS [facility] [id number] [facility]. Kecia oliveiras [facility] 2018-12-11 05:10:00 2018-12-11 05:10:00 Emergency E [facility] [address] [facility] 2018-08-30 21:41:00 2018-08-30 21:41:00 Registered Emergency Room [facility] [id number] [facility]. Mattie [facility] 2018-04-01 11:35:00 2018-04-01 12:20:00 Outpatient E MUMTAZ COLUNGA [facility] [id number] [facility] 2018-01-20 00:00:00 2018-01-21 00:00:00 Outpatient [facility] [id number] [facility] Office 2017-07-23 00:00:00 2017-07-23 00:00:00 Outpatient [facility] [id number] [facility] Results Test Description Test Time Test Comments Results Result Comments Source [facility]ETBR[facility] WILSON : 1980 Sex: [place] [address] Patient Name: BRODIE BURROUGHS MR #: [id number] : 1980 Age/Sex: 39/M Req #: [id number] Adm Physician: Ordered by: ALVINO HUMPHRIES MD Report #: [id number] Location: [facility] Room/Bed: Procedure: [id number] HOPD/L SPINE 2-3 VEWS - HOPD Exam Date: 03/29/20 Exam Time: 0253 REPORT STATUS: Signed Lumbar Spine Radiographs: 3 views HISTORY: Pain. COMPARISON: Lumbar spine CT 07/31/2019 DISCUSSION: Some of the osseous structures are partially obscured by stool and bowel gas. There are five non-rib bearing lumbar vertebral bodies. The alignment of the spine is within normal limits. No displaced fracture or compression deformity is identified. Disc Spaces: The disc spaces are well maintained. Facets: The facet joints are unremarkable. IMPRESSION: No acute radiographic abnormality. Signed by: Patricio Larsen DO on 03/29/2020 3:10 AM Dictated By: PATRICIO LARSEN DO 9 Transcribed By: MARIAN on 03/29/20309 COPY TO: ALVINO HUMPHRIES MD BASIC METABOLIC PANEL 2020-02-06 08:39:00 Test Item [...] code = CA) 8.9 mg/dL 8.5-10.1 N [id number] 08:39:00* Test Item Value Reference Range Interpretation [...] ANADDITIONAL CHARGE TO THE PATIENT. BASIC METABOLIC [id number] 08:35:00* Test Item Value Reference Range Interpretation [...] CALCIUM (test code = CA) mg/dL 8.5-10.1 [id number] 08:35:00* Test Item Value Reference Range Interpretation Comments ALCOHOL (test code = ALC) mg/dL 0-3 URINALYSIS [id number] 03:05:00* Test Item Value Reference Range Interpretation [...] Urine Source? Clean CatchDRUGS OF ABUSE SCREEN [id number] 03:05:00* Test Item Value Reference Range Interpretation [...] <300 ng/mL Urine Source? Clean CatchBASIC METABOLIC [id number] 02:49:00* Test Item Value Reference Range Interpretation [...] CA) 9.6 mg/dL 8.5-10.1 N HEPATIC FUNCTION [id number] 02:49:00* Test Item Value Reference Range Interpretation [...] reference range due to change in reagent. [id number] 02:49:00* Test Item Value Reference Range Interpretation Comments ACETAMINOPHEN (test code = ACET) < 10 mcg/mL 10-30 L A RANGE OF 10-30 mcg/mL IS A THERAPEUTIC RANGE. TOXIC CONCENTRATIONS: >150 mcg/mL AT 4 HOURS AFTER INGESTION >= 50 mcg/mL AT 12 HOURS AFTER INGESTION [id number] 02:49:00* Test Item Value Reference Range Interpretation Comments SALICYLATE (test code = GABE) < 1.7 mg/dL 2.8-20.0 L [id number] 02:49:00* Test Item Value Reference Range Interpretation Comments ALCOHOL (test code = ALC) 191 mg/dL 0.0-3.0 H -- INTERPRETIVE DATA NOTE: POSITIVE SCREENING RESULTS SHOULD BE CONSIDERED PRESUMPTIVE.WHEN COLLECTED FOR MEDICAL PURPOSES ONLY. SPECIMEN WILL NOTBE COLLECTED BY CHAIN OF CUSTODY.IF A CONFIRMATION OF POSITIVE RESULTS IS DESIRED, ACONFIRMATION TEST MUST BE REQUESTED BY THE PHYSICIAN AT ANADDITIONAL CHARGE TO THE PATIENT. URINALYSIS [id number] 02:43:00* Test Item Value Reference Range Interpretation [...] Urine Source? Clean CatchDRUGS OF ABUSE SCREEN [id number] 02:43:00* Test Item Value Reference Range Interpretation [...] MET[place]URN) <300 ng/mL Urine Source? Clean CatchURINALYSIS [id number] 02:42:00* Test Item Value Reference Range Interpretation [...] Urine Source? Clean CatchDRUGS OF ABUSE SCREEN [id number] 02:42:00* Test Item Value Reference Range Interpretation [...] <300 ng/mL Urine Source? Clean CatchBASIC METABOLIC [id number] 02:40:00* Test Item Value Reference Range Interpretation [...] code = CA) mg/dL 8.5-10.1 HEPATIC FUNCTION [id number] 02:40:00* Test Item Value Reference Range Interpretation [...] TOTAL (test code = ALKP) IUnit/L 45-117 [id number] 02:40:00* Test Item Value Reference Range Interpretation Comments ACETAMINOPHEN (test code = ACET) mcg/mL 10-30 [id number] 02:40:00* Test Item Value Reference Range Interpretation Comments SALICYLATE (test code = GABE) mg/dL 2.8-20.0 [id number] 02:40:00* Test Item Value Reference Range Interpretation Comments ALCOHOL (test code = ALC) mg/dL 0-3 CBC W/O [id number] 02:27:00* Test Item Value Reference Range Interpretation [...] MPV) 9.4 fL 6.7-11.0 N CBC W/O [id number] 02:22:00* Test Item Value Reference Range Interpretation [...] VOLUME (test code = MPV) fL 6.7-11.0 [id number] 13:30:00* Test Item Value Reference Range Interpretation Comments Accuchek (test code = ACU) 182 mg/dL 70-110 H - XR TIBIA/FIBULA 2 V [id number] 01:42:00 FAX: Arnel Heard MD [phone] [place]: St: REG Name: BRODIE WASHINGTON [facility] : [birth year] Age/S: 39/M [address] [place] [address] Unit #: [id number] Loc: [address] [place] [address] Phys: Arnel Franco MD Acct: [id number] Dis Date: Status: REG ER PHONE #: [phone] Exam Date: 10/06/2019140 FAX #: [phone] Reason: pain with trauma EXAMS: CPT CODE: [id number] XR TIBIA/FIBULA 2 [place] [address] Study: - XR TIBIA/FIBULA 2 V LT 1:24 AM Patient Name: BRODIE BURROUGHS MR: [id number] : 1980; Age: 39 years y/o Male [...] ValdezTP6 Jairon g Print D/T: S: 10/06/2019 (0145) PAGE [address] LUMBAR SPINE WITHOUT-HOPD 2019-07-31 18:03:00 [place] [address] Patient Name: BRODIE BURROUGHS MR #: [id number] : 1980 Age/Sex: 39/M Req #: [id number] Adm Physician: Ordered by: YUNIEL WILLIS MD Report #: [id number] Location: [facility] Room/Bed: Procedure: 022 0011 HOPD/CT LUMBAR SPINE WITHOUT-HOPD Exam Date: 07/31/19 [...] YUNIEL WILLIS MD CT C-SPINE W/O - [id number] 17:57:00 [facility] [address] [place] [address] Patient Name: BRODIE BURROUGHS MR #: [id number] : 1980 Age/Sex: 39/M Req #: [id number] Adm Physician: Ordered by: YUNIEL WILLIS MD Report #: [id number] Location: [facility] Room/Bed: Procedure: 022 HOPD/CT C-SPINE W/O - HOPD Exam Date: [...] was issued by Dr. El Dukes M.D. ne uroradiology fellow at 1804 hours on 07/31/2019. 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 Signed by: Dr. Trixie Foreman M.D. on 07/31/2019 8:21 PM Dict ated By: TRIXIE FOREMAN MD 20 COPY TO: FARHAD WILLIS SE, MD CT BRAIN IO-[id number] 17:39:00 [place] [address] Patient Name: BRODIE BURROUGHS MR #: [id number] : 1980 Age/Sex: 39/M Req #: [id number] Adm Physician: Ordered by: YUNIEL WILLIS MD Report #: [id number] Location: [facility] Room/Bed: Procedure: HOPD/CT BRAIN WO-HOPD Exam Date: 07/31/19 Exa [...] in the preliminary report. Signed by: Dr. Andrews Foreman M.D. on 07/31/2019 8:16 PM Dictated [...] Toxic: 50 - 100 mg/dL Depression of FLAG SIGNALMAN: Greater than 100 mg/dL Fatalities reported: Greater than 400 mg/dL [id number] 07:03:00* Test Item Value Reference Range Interpretation [...] NotDetected Toxicology (test code = MTCUTOFF) The Precision Through Imaging Profile-V Panel for Qualitative Drugs ofAbuse assays [...] fortwo weeks. Urine Source: Urine VoidedChemistry - [id number] 05:59:00* Test Item Value Reference Range Interpretation Comments Chemistry - Specials (test code = TSH3) 0.4760 uIU/mL 0.35-4.94 N Fphmdrrmt8641-62-32 05:42:00* Test Item Value Reference Range Interpretation [...] code = ALT) 46 U/L 8-55 N Oiczlgkpz7147-28-83 05:42:00* Test Item Value Reference Range Interpretation Comments Chemistry (test code = CK) 354 U/L 30-200 H Jvggafktt5976-87-78 05:42:00* Test Item Value Reference Range Interpretation [...] Toxic: 50 - 100 mg/dL Depression of FLAG SIGNALMAN: Greater than 100 mg/dL Fatalities reported: Greater than 400 mg/dL Chemistry (test code = SALCY) Less than 8.0 mg/dL 15.0-30.0 L Kyvhnefglv4269-92-28 05:18:00* Test Item Value Reference Range Interpretation [...] 12:07:30CT abdomen and pelvis with contrastLocation Code: [id number] HISTORY:Right flank painCOMPARISON: NoneTechnique: Helical CT of [...] NotDetected Toxicology (test code = MTCUTOFF) The Precision Through Imaging Profile-V Panel for Qualitative Drugs ofAbuse assays [...] What drug is suspected? cocaineUrine Source: Urine YchtrwEiguqfqqi0652-00-87 09:28:00* Test Item Value Reference Range Interpretation [...] - 4.0 Protection probable: Less than 2.7 Xwxkqwatz4201-05-22 07:38:00* Test Item Value Reference Range Interpretation Comments Chemistry (test code = TROPI-T) 0.027 ng/mL < 0.028 Reference Range 0.00 - 0.028 ng/mL Negative 0.029 - 0.29 ng/mL Indeterminate Greater or Equal to 0.3 ng/mL Strongly suggests HI Nyubwbaul3665-62-34 05:03:00* Test Item Value Reference Range Interpretation Comments Chemistry (test code = TROPI-T) 0.031 ng/mL < 0.028 H Reference Range 0.00 - 0.028 ng/mL Negative 0.029 - 0.29 ng/mL Indeterminate Greater or Equal to 0.3 ng/mL Strongly suggests HI Chemistry - BNP, HgbA1c, [id number] 02:00:00* Test Item Value Reference Range Interpretation Comments Chemistry - BNP, HgbA1c, PTHi (test code = BNP) 89.9 pg/mL 0-100 N Zhnmlsfpb4377-48-65 01:46:00* Test Item Value Reference Range Interpretation [...] code = ALT) 24 U/L 8-55 N Xvzagqxaup2358-98-63 01:35:00* Test Item Value Reference Range Interpretation [...] code = BASO#) 0.1 thou/uL 0.0-0.2 N Vguhmeazu3480-58-51 01:14:00* Test Item Value Reference Range Interpretation Comments Chemistry (test code = CKMBM-T) 5.9 ng/mL 0-6.6 N Chemistry (test code = TROPI-T) 0.042 ng/mL < 0.028 H Reference Range 0.00 - 0.028 ng/mL Negative 0.029 - 0.29 ng/mL Indeterminate Greater or Equal to 0.3 ng/mL Strongly suggests HI [id number] 01:10:00* Test Item Value Reference Range Interpretation Comments Chemistry (test code = CK) 276 U/L 30-200 H Chemistry - BNP, HgbA1c, [id number] 20:29:00* Test Item Value Reference Range Interpretation Comments Chemistry - BNP, HgbA1c, PTHi (test code = BNP) 40.2 pg/mL 0-100 N Qjxgcetks8264-63-88 20:28:00* Test Item Value Reference Range Interpretation Comments Chemistry (test code = CKMBM-T) 4.5 ng/mL 0-6.6 N Chemistry (test code = TROPI-T) 0.027 ng/mL < 0.028 Reference Range 0.00 - 0.028 ng/mL Negative 0.029 - 0.29 ng/mL Indeterminate Greater or Equal to 0.3 ng/mL Strongly suggests HI [id number] 20:24:00* Test Item Value Reference Range Interpretation [...] code = ALT) 26 U/L 8-55 N Nbxshjtkz1020-09-81 20:24:00* Test Item Value Reference Range Interpretation Comments Chemistry (test code = CK) 325 U/L 30-200 H Qcvbydlagl1272-15-49 20:03:00* Test Item Value Reference Range Interpretation [...] code = BASO#) 0.1 thou/uL 0.0-0.2 N Mtwtzuvmp5812-20-22 18:47:00* Test Item Value Reference Range Interpretation [...] code = ALT) 26 U/L 8-55 N Zhseafdrpt5404-54-11 18:43:00* Test Item Value Reference Range Interpretation [...] = UABLD) Negative Negative Urine Source: Urine XnztiqOkibkblusb8173-38-72 18:22:00* Test Item Value Reference Range Interpretation [...] code = BASO#) 0.1 thou/uL 0.0-0.2 N Gerluuhny6528-22-06 05:54:00* Test Item Value Reference Range Interpretation [...] code = CA) 9.3 mg/dL 7.8-10.44 N Ljmpuxxfa4939-44-72 05:54:00* Test Item Value Reference Range Interpretation Comments Chemistry (test code = CK) 477 U/L 30-200 H Bcfgxtuke2671-93-81 06:14:00* Test Item Value Reference Range Interpretation [...] code = CA) 8.9 mg/dL 7.8-10.44 N Lrcqjukkj2412-93-35 06:14:00* Test Item Value Reference Range Interpretation Comments Chemistry (test code = CK) 673 U/L 30-200 H Xkuagcpfu8293-32-13 06:14:00* Test Item Value Reference Range Interpretation [...] - 4.0 Protection probable: Less than 2.7 Vvwxojpqut5828-74-29 05:53:00* Test Item Value Reference Range Interpretation [...] code = BASO#) 0.1 thou/uL 0.0-0.2 N Wxasqdgny7182-14-97 19:45:00* Test Item Value Reference Range Interpretation Comments Chemistry (test code = TROPI-T) 0.056 ng/mL < 0.028 H Reference Range 0.00 - 0.028 ng/mL Negative 0.029 - 0.29 ng/mL Indeterminate Greater or Equal to 0.3 ng/mL Strongly suggests HI Argkzeyox1548-50-72 17:06:00* Test Item Value Reference Range Interpretation Comments Chemistry (test code = TROPI-T) 0.063 ng/mL < 0.028 H Reference Range 0.00 - 0.028 ng/mL Negative 0.029 - 0.29 ng/mL Indeterminate Greater or Equal to 0.3 ng/mL Strongly suggests HI Qnnnnwarjw5876-80-37 15:28:00* Test Item Value Reference Range Interpretation [...] NotDetected Toxicology (test code = MTCUTOFF) The Precision Through Imaging Profile-V Panel for Qualitative Drugs ofAbuse assays [...] are held fortwo weeks. Urine Source: Urine EvcqaaAjyowrzwby3309-83-55 15:22:00* Test Item Value Reference Range Interpretation [...] Negative Negative Urine Source: Urine VoidedChemistry - Ddxgingb9341-09-95 15:05:00* Test Item Value Reference Range Interpretation Comments Chemistry - Specials (test code = TSH3) 0.4726 uIU/mL 0.35-4.94 N Tbbmbgcqv2312-21-92 14:45:00* Test Item Value Reference Range Interpretation Comments Chemistry (test code = PHOS) 2.6 mg/dL 2.3-4.7 N Zbwthnixr1104-46-63 14:45:00* Test Item Value Reference Range Interpretation Comments Chemistry (test code = MG) 1.8 mg/dL 1.6-2.6 N Mdoskygei2833-95-52 14:17:00* Test Item Value Reference Range Interpretation Comments Chemistry (test code = CCCK) ANUP@1416 Chemistry (test code = CKMBM-T) 7.9 ng/mL 0-6.6 HH Critical value! Chemistry (test code = TROPI-T) 0.042 ng/mL < 0.028 H Reference Range 0.00 - 0.028 ng/mL Negative 0.029 - 0.29 ng/mL Indeterminate Greater or Equal to 0.3 ng/mL Strongly suggests HI Zwsluqqjm4496-90-65 14:14:00* Test Item Value Reference Range Interpretation [...] code = ALT) 29 U/L 8-55 N Dlqggxhzj1174-25-36 14:14:00* Test Item Value Reference Range Interpretation Comments Chemistry (test code = CK) 1049 U/L 30-200 H Keoidesam9315-98-52 14:14:00* Test Item Value Reference Range Interpretation Comments Chemistry (test code = LIP) 54 U/L 8-78 N Bspgymswgj3338-34-77 13:39:00* Test Item Value Reference Range Interpretation [...] code = BASO#) 0.1 thou/uL 0.0-0.2 N Qxvqwmlui0816-98-14 04:22:00* Test Item Value Reference Range Interpretation Comments Chemistry (test code = TROPI-T) 0.038 ng/mL < 0.028 H Reference Range 0.00 - 0.028 ng/mL Negative 0.029 - 0.29 ng/mL Indeterminate Greater or Equal to 0.3 ng/mL Strongly suggests HI Zvlxiwsqr2342-69-46 02:00:00* Test Item Value Reference Range Interpretation [...] code = ALT) 33 U/L 8-55 N Fbiphezcoe3192-76-41 01:58:00* Test Item Value Reference Range Interpretation [...] code = BASO#) 0.1 thou/uL 0.0-0.2 N Nnnvdkfyb6676-82-39 01:41:00* Test Item Value Reference Range Interpretation Comments Chemistry (test code = CCCK) ERS.DEC@0141 Chemistry (test code = CKMBM-T) 7.8 ng/mL 0-6.6 HH Critical value! Chemistry (test code = TROPI-T) 0.048 ng/mL < 0.028 H Reference Range 0.00 - 0.028 ng/mL Negative 0.029 - 0.29 ng/mL Indeterminate Greater or Equal to 0.3 ng/mL Strongly suggests HI [facility] BRODIE BURROUGHS [employer] Phys: [place] [address] : 1980 Age: 38 SEX:M [phone] Exam Date: 12/19/18 Status: REG ER Acct: [id number] Loc: [facility] Pt Unit #: [id number] Report #: [id number] CC: Ashok Martinez DO IMAGING SERVICES REPORT Order # Category/Exam [id number] RAD/XR Chest 1 View Portable ([id number]): . Results PORTABLE CHEST: Date: 12/19/18 COMPARISON: 06/07/17. HISTORY: Drug overdose. FINDINGS: Heart size appears slightly enlarged. Mediastinal structures are unremarkable. Lungs are clear of infiltrates. The film is of poor inspiration. IMPRESSION: Borderline heart size, somewhat difficult to assess due to portable technique and poor inspiration. POS: [facility] Reported By: Juno Daniels MD Electronically Signed Date/Time: 12/19/18 0874 Technologist: KALLIE Dictated Date/Time: 12/19/18 0736 Transcribed Date/Time: 12/19/18 0718
== END 2020-03-29 03:55 | disposition home or self-care (01) ==
LOC: FSED 02:40
DX: M54.41 Lumbago with sciatica, right side (principal); E11.9 Type 2 diabetes mellitus without complications; F41.9 Anxiety disorder, unspecified; Z85.53 Personal history of malignant neoplasm of renal pelvis
CPT/HCPCS: 72100; 99283

== ENCOUNTER 2020-04-24 21:17 | Emergency (ER) | payer BC ==
[~2020-04-24] VITALS: Ht 195.6 cm; Wt 117.9 kg
[~2020-04-24 21:17] MED LIST changes: +IBUPROFEN IB200 MG PO; +TYLENOL # 31 EA PO; +ULTRAM 50MG50 MG PO; +ZANAFLEX4 MG PO
--- OUTSIDE RECORDS SUMMARY | 2020-04-24 21:52 | XMS REPORT | Continuity of Care Document ---
Author Author [facility] t Organization [facility] Address [address] [place] [address] Phone Unavailable Care Team Providers Care Background Investigator Name Role Phone NONSTAFF PCP Unavailable Dain [...] Number Effective Date Expiration Date Andrews tobin [facility] [id number] 2019 00:00:00 [facility] [id number] 2018 00:00:[address] [facility] Problems Condition Name Condition Details Condition Category Status Onset Date Resolution Date Last Treatment Date Treating Clinician Comments Source Otitis media Problem Active [facility] Acute pharyngitis Problem Active [facility] Acute pain due to trauma Problem Active [facility] Sciatica of right side Problem Active [facility] Allergies, Adverse Reactions, Alerts Allergy Name Allergy Type Status Severity Reaction(s) Onset Date Inacti ve Date Treating Clinician Comments Source No Known Allergies DA Active U 2019-10-06 00:00:00 [facility] No Known Contrast Allergies DA Active U 2004-01-16 00:00: 00 [facility] No Known Drug Allergies DA Active U 2004-01-16 00:00:00 [facility] No Known Food Allergies DA Active U 2004-01-16 00:00:00 [facility] No Known Other Allergies DA Active U 2004-01-16 00:00:00 [facility] Social History Social Habit Start Date Stop Date Quantity Comments Source Sex Assigned At 1980 00:00:00 1980 00:00:[address] [facility] Medications Ordered Medication Name Filled Medication Name Start Date Stop Da te Current Medication? Ordering Clinician Indication Dosage Frequency Signature (SIG) Comments Components Source Tramadol Hcl (Ultram 50MG*) 50 Mg TAB Tramadol Hcl (Ultram 5 0MG*) 50 Mg TAB 2020-03-29 03:27:00 Yes 50 Every 6 Hours as n eeded for Pain [facility] Ibuprofen (Ibuprofen Ib) 200 Mg TABLET Ibuprofen (Ibuprofen Ib) 200 Mg TABLET 2020-03-29 02:48:00 Yes 3 Every 6 Hours as n eeded for Pain [facility] Tizanidine Hcl (Zanaflex) 4 Mg TABLET Tizanidine Hcl (Zanafl ex) 4 Mg TABLET 2020-03-29 02:48:00 Yes 1 Every 8 Hours as n eeded for Back Pain [facility] Acetaminophen/Codeine Phosphate (Tylenol # 3*) 1 Ea TA B Acetaminophen/Codeine Phosphate (Tylenol # 3*) 1 Ea TAB 2020-03-29 02:48:00 2020-03-29 00:00:00 No 1 Every 4 Hours as needed for Pain Or Cough [facility] Cefdinir (Omnicef) 300 Mg CAPSULE Cefdinir (Omnicef) 300 Mg CAPSULE 2020-02-20 15:14:00 Yes [address] [facility] Naproxen (Naprosyn) 500 Mg TABLET Naproxen (Naprosyn) 500 Mg TABLET 2019-11-09 13:11:00 Yes 500 Twice A Day [facility] Sulfamethoxazole/Trimethoprim (Bactrim Ds Tablet) 1 Ea ch TABLET Sulfamethoxazole/Trimethoprim (Bactrim Ds Tablet) 1 Each TABLET 2019-11-09 13:11:00 Yes 1 Twice A Day [facility] Methocarbamol (Robaxin-750) 750 Mg TABLET Methocarbamo l (Robaxin-750) 750 Mg TABLET 2019-07-31 17:24:00 2019-11-09 00:00:00 No 750 Every 6 Hours as needed for Musc Spasms [facility] Diazepam (Valium) 5 Mg TABLET Diazepam (Valium) 5 Mg TABLET Yes as needed for Anxiety [facility] Metformin Hcl Metformin Hcl Yes 500 Twice A Day [facility] Vital Signs Vital Name Observation Time Observation Value Comments Source Weight 2020-03-29 02:30:00 260 [lb_av] [facility] BMI (Body Mass Index) 2020-03-29 02:30:00 31.6 kg/m2 [facility] Weight 2020-02-20 14:38:00 260 [lb_av] [facility] BMI (Body Mass Index) 2020-02-20 14:38:00 44.6 kg/m2 [facility] Weight 2019-11-09 12:31:00 254.06 [lb_av] [facility] BMI (Body Mass Index) 2019-11-09 12:31:00 30.9 kg/m2 [facility] Body Temperature 2019-07-31 17:42:00 98.4 [degF] [facility] Procedures This patient has no known procedures. Plan of Care Planned Activity Planned Date Details Comments Source Instructions Sciatica [facility] Encounters Start Date/Time End Date/Time Encounter Type Admission Type Attendi [facility] Facility Care Department Encounter ID Source 2020-04-09 22:17:00 2020-04-09 22:17:00 Emergency E [facility] [id number] [facility] 2020-03-29 02:40:00 2020-03-29 03:55:00 Departed Emergency Room 1 ALVINO HUMPHRIES [facility] [id number] [facility] - [facility] 2020-02-20 14:50:00 2020-02-20 15:49:00 Departed Emergency Room [facility] [id number] [facility] 2019-11-09 12:27:00 2019-11-09 13:15:00 Departed Emergency Room [facility] [id number] [facility] 2019-07-31 15:18:00 2019-07-31 17:39:00 Departed Emergency Room 1 YUNIEL WILLIS [facility] [id number] [facility] - Patients [facility] 2018-12-11 05:10:00 2018-12-11 05:10:00 Emergency E [facility] [id number] [facility] 2018-08-30 21:41:00 2018-08-30 21:41:00 Registered Emergency Room [facility] [id number] [facility] 2018-04-01 11:35:00 2018-04-01 12:20:00 Outpatient MUMTAZ RAE [facility] [id number] [facility] 2018-01-20 00:00:00 2018-01-21 00:00:00 [facility]patient [facility] [id number] [facility] 2017-07-23 00:00:00 2017-07-23 00:00:00 [facility] [id number] [facility] Results Test Description Test Time Test Comments Results Result Comments Source L SPINE 2-3 VEWS - HOPD 2020-03-29 03:09:[address] [facility] : 1980 Sex: M [facility] [address] [address] Patient Name: BRODIE BURROUGHS MR #: [id number] : 1980 Age/Sex: 39/M Req #: [id number] Adm Physician: Ordered by: ALVINO HUMPHRIES MD Report #: [id number] Location: [facility] Room/Bed: Procedure: [id number] HOPD/L SPINE 2-3 VEWS - HOPD Exam [...] code = CA) 8.9 mg/dL 8.5-10.1 N [id number] 08:39:00* Test Item Value Reference Range Interpretation [...] ANADDITIONAL CHARGE TO THE PATIENT. BASIC METABOLIC [id number] 08:35:00* Test Item Value Reference Range Interpretation [...] CALCIUM (test code = CA) mg/dL 8.5-10.1 [id number] 08:35:00* Test Item Value Reference Range Interpretation Comments ALCOHOL (test code = ALC) mg/dL 0-3 URINALYSIS [id number] 03:05:00* Test Item Value Reference Range Interpretation [...] Urine Source? Clean CatchDRUGS OF ABUSE SCREEN [id number] 03:05:00* Test Item Value Reference Range Interpretation [...] <300 ng/mL Urine Source? Clean CatchBASIC METABOLIC [id number] 02:49:00* Test Item Value Reference Range Interpretation [...] CA) 9.6 mg/dL 8.5-10.1 N HEPATIC FUNCTION [id number] 02:49:00* Test Item Value Reference Range Interpretation [...] reference range due to change in reagent. [id number] 02:49:00* Test Item Value Reference Range Interpretation Comments ACETAMINOPHEN (test code = ACET) < 10 mcg/mL 10-30 L A RANGE OF 10-30 mcg/mL IS A THERAPEUTIC RANGE. TOXIC CONCENTRATIONS: >150 mcg/mL AT 4 HOURS AFTER INGESTION >= 50 mcg/mL AT 12 HOURS AFTER INGESTION [id number] 02:49:00* Test Item Value Reference Range Interpretation Comments SALICYLATE (test code = GABE) < 1.7 mg/dL 2.8-20.0 L [id number] 02:49:00* Test Item Value Reference Range Interpretation Comments ALCOHOL (test code = ALC) 191 mg/dL 0.0-3.0 H -- INTERPRETIVE DATA NOTE: POSITIVE SCREENING RESULTS SHOULD BE CONSIDERED PRESUMPTIVE.WHEN COLLECTED FOR MEDICAL PURPOSES ONLY. SPECIMEN WILL NOTBE COLLECTED BY CHAIN OF CUSTODY.IF A CONFIRMATION OF POSITIVE RESULTS IS DESIRED, ACONFIRMATION TEST MUST BE REQUESTED BY THE PHYSICIAN AT ANADDITIONAL CHARGE TO THE PATIENT. URINALYSIS [id number] 02:43:00* Test Item Value Reference Range Interpretation [...] Urine Source? Clean CatchDRUGS OF ABUSE SCREEN [id number] 02:43:00* Test Item Value Reference Range Interpretation [...] [place]) <300 ng/mL Urine Source? Clean CatchURINALYSIS [id number] 02:42:00* Test Item Value Reference Range Interpretation [...] Urine Source? Clean CatchDRUGS OF ABUSE SCREEN [id number] 02:42:00* Test Item Value Reference Range Interpretation [...] <300 ng/mL Urine Source? Clean CatchBASIC METABOLIC [id number] 02:40:00* Test Item Value Reference Range Interpretation [...] code = CA) mg/dL 8.5-10.1 HEPATIC FUNCTION [id number] 02:40:00* Test Item Value Reference Range Interpretation [...] TOTAL (test code = ALKP) IUnit/L 45-117 [id number] 02:40:00* Test Item Value Reference Range Interpretation Comments ACETAMINOPHEN (test code = ACET) mcg/mL 10-30 [id number] 02:40:00* Test Item Value Reference Range Interpretation Comments SALICYLATE (test code = GABE) mg/dL 2.8-20.0 [id number] 02:40:00* Test Item Value Reference Range Interpretation Comments ALCOHOL (test code = ALC) mg/dL 0-3 CBC W/O [id number] 02:27:00* Test Item Value Reference Range Interpretation [...] MPV) 9.4 fL 6.7-11.0 N CBC W/O [id number] 02:22:00* Test Item Value Reference Range Interpretation [...] VOLUME (test code = MPV) fL 6.7-11.0 [id number] 13:30:00* Test Item Value Reference Range Interpretation Comments Accuchek (test code = ACU) 182 mg/dL 70-110 H - XR TIBIA/FIBULA 2 V [id number] 01:42:00 FAX: Arnel Heard MD [phone] [place]: St: REG Name: BRODIE WASHINGTON [facility] : [birth year] Age/S: 39/M [address] [place] [address] Unit #: [id number] Loc: [address] [address] Phys: Arnel Franco MD Acct: [id number] Dis Date: Status: REG ER PHONE #: [phone] Exam Date: 10/06/2019 0141 FAX #: [phone] Reason: pain with trauma EXAMS: CPT CODE: [id number] XR TIBIA/FIBULA 2 V LT 88892 Study: - XR TIBIA/FIBULA 2 V LT 1:24 AM Patient Name: BRODIE BURROUGHS MR: [id number] : 1980; Age: 39 years y/o Male [...] MD Technologist: RT Terrance(Merlyn) Trnscrd Date/Time/By: 10/06/2019 (141) : By: [email or web address] Jairon g Print D/T: S: 10/06/2019 (0145) [address] LUMBAR SPINE WITHOUT-HOPD 2019-07-31 18:03:[address] [address] Patient Name: BRODIE BURROUGHS MR #: [id number] : 1980 Age/Sex: 39/M Req #: [id number] Adm Physician: Ordered by: YUNIEL WILLIS MD Report #: [id number] Location: [facility] Room/Bed: Procedure: 022 1-0011 HOPD/CT LUMBAR SPINE WITHOUT-HOPD Exam Date: 07/31/19 [...] YUNIEL WILLIS MD CT C-SPINE W/O - [id number] 17:57:00 [address] [address] Patient Name: BRODIE BURROUGHS MR #: [id number] : 1980 Age/Sex: 39/M Req #: [id number] Adm Physician: Ordered by: YUNIEL WILLIS MD Report #: [id number] Location: [facility] Room/Bed: Procedure: 022 0013 HOPD/CT C-SPINE W/O - HOPD Exam Date: [...] TO: FARHAD WILLIS SE, MD CT BRAIN [id number]-[id number] 17:39:00 [address] [address] Patient Name: BRODIE BURROUGHS MR #: [id number] : 1980 Age/Sex: 39/M Req #: [id number] Adm Physician: Ordered by: YUNIEL WILLIS MD Report #: [id number] Location: [facility] Room/Bed: Procedure: HOPD/CT BRAIN WO-HOPD Exam Date: 07/31/19 Exkalpana m Time: 1707 REPORT STATUS: Signed CT BRAIN [facility] HISTORY: Status post slip and fall COMPARISON: [...] the preliminary report. Signed by: Dr. Andrews Foerman M.D. on 07/31/2019 8:16 PM Dictated By: [...] Toxic: 50 - 100 mg/dL Depression of [employer] SUPERVISOR: Greater than 100 mg/dL Fatalities reported: Greater than 400 mg/dL Whvkakwkbb2998-20-07 07:03:00* Test Item Value Reference Range Interpretation [...] NotDetected Toxicology (test code = MTCUTOFF) The LessThan3 Profile-V Panel for Qualitative Drugs ofAbuse assays [...] fortwo weeks. Urine Source: Urine VoidedChemistry - Iyhffrns2727-11-26 05:59:00* Test Item Value Reference Range Interpretation Comments Chemistry - Specials (test code = TSH3) 0.4760 uIU/mL 0.35-4.94 N Gefoumcvk3230-30-48 05:42:00* Test Item Value Reference Range Interpretation [...] code = ALT) 46 U/L 8-55 N Qigbcrujl4070-27-04 05:42:00* Test Item Value Reference Range Interpretation Comments Chemistry (test code = CK) 354 U/L 30-200 H Ttxoxirwn5988-72-51 05:42:00* Test Item Value Reference Range Interpretation [...] Toxic: 50 - 100 mg/dL Depression of [employer]AT[employer] SUPERVISOR: Greater than 100 mg/dL Fatalities reported: Greater than 400 mg/dL Chemistry (test code = SALCY) Less than 8.0 mg/dL 15.0-30.0 L Tjfehuapoa9567-46-61 05:18:00* Test Item Value Reference Range Interpretation [...] 12:07:30CT abdomen and pelvis with contrastLocation Code: [id number] HISTORY:Right flank painCOMPARISON: NoneTechnique: Helical CT of [...] NotDetected Toxicology (test code = MTCUTOFF) The LessThan3 Profile-V Panel for Qualitative Drugs ofAbuse assays [...] What drug is suspected? cocaineUrine Source: Urine SemtagYcvaqoavg6427-07-67 09:28:00* Test Item Value Reference Range Interpretation [...] - 4.0 Protection probable: Less than 2.7 Tbpxtrwpi2058-30-39 07:38:00* Test Item Value Reference Range Interpretation Comments Chemistry (test code = TROPI-T) 0.027 ng/mL < 0.028 Reference Range 0.00 - 0.028 ng/mL Negative 0.029 - 0.29 ng/mL Indeterminate Greater or Equal to 0.3 ng/mL Strongly suggests IA Prjoqnaqj8272-75-23 05:03:00* Test Item Value Reference Range Interpretation Comments Chemistry (test code = TROPI-T) 0.031 ng/mL < 0.028 H Reference Range 0.00 - 0.028 ng/mL Negative 0.029 - 0.29 ng/mL Indeterminate Greater or Equal to 0.3 ng/mL Strongly suggests IA Chemistry - BNP, HgbA1c, WVWu2258-36-85 02:00:00* Test Item Value Reference Range Interpretation Comments Chemistry - BNP, HgbA1c, PTHi (test code = BNP) 89.9 pg/mL 0-100 N Nzjwdfkrx1064-31-65 01:46:00* Test Item Value Reference Range Interpretation [...] code = ALT) 24 U/L 8-55 N Xrwzetsknn1775-43-48 01:35:00* Test Item Value Reference Range Interpretation [...] code = BASO#) 0.1 thou/uL 0.0-0.2 N Fnkuflgmq2515-60-71 01:14:00* Test Item Value Reference Range Interpretation Comments Chemistry (test code = CKMBM-T) 5.9 ng/mL 0-6.6 N Chemistry (test code = TROPI-T) 0.042 ng/mL < 0.028 H Reference Range 0.00 - 0.028 ng/mL Negative 0.029 - 0.29 ng/mL Indeterminate Greater or Equal to 0.3 ng/mL Strongly suggests IA Geuvellfb4059-57-95 01:10:00* Test Item Value Reference Range Interpretation Comments Chemistry (test code = CK) 276 U/L 30-200 H Chemistry - BNP, HgbA1c, DMBp0424-35-29 20:29:00* Test Item Value Reference Range Interpretation Comments Chemistry - BNP, HgbA1c, PTHi (test code = BNP) 40.2 pg/mL 0-100 N Xitdscaow3615-06-45 20:28:00* Test Item Value Reference Range Interpretation Comments Chemistry (test code = CKMBM-T) 4.5 ng/mL 0-6.6 N Chemistry (test code = TROPI-T) 0.027 ng/mL < 0.028 Reference Range 0.00 - 0.028 ng/mL Negative 0.029 - 0.29 ng/mL Indeterminate Greater or Equal to 0.3 ng/mL Strongly suggests IA Qknamgazm7368-58-76 20:24:00* Test Item Value Reference Range Interpretation [...] code = ALT) 26 U/L 8-55 N Gapwegayg7986-44-36 20:24:00* Test Item Value Reference Range Interpretation Comments Chemistry (test code = CK) 325 U/L 30-200 H Pfqqpexsfz6079-37-88 20:03:00* Test Item Value Reference Range Interpretation [...] code = BASO#) 0.1 thou/uL 0.0-0.2 N Jlbphbpwg3865-44-65 18:47:00* Test Item Value Reference Range Interpretation [...] code = ALT) 26 U/L 8-55 N Dwfvrmorbb3488-05-26 18:43:00* Test Item Value Reference Range Interpretation [...] = UABLD) Negative Negative Urine Source: Urine PenhlwPnhmtahusq6454-67-98 18:22:00* Test Item Value Reference Range Interpretation [...] code = BASO#) 0.1 thou/uL 0.0-0.2 N Qcabwbaeb0553-71-29 05:54:00* Test Item Value Reference Range Interpretation [...] code = CA) 9.3 mg/dL 7.8-10.44 N Aphpefvbh5295-42-65 05:54:00* Test Item Value Reference Range Interpretation Comments Chemistry (test code = CK) 477 U/L 30-200 H Ujzqtyhww0240-85-09 06:14:00* Test Item Value Reference Range Interpretation [...] code = CA) 8.9 mg/dL 7.8-10.44 N Ccutbojnj3778-47-38 06:14:00* Test Item Value Reference Range Interpretation Comments Chemistry (test code = CK) 673 U/L 30-200 H Vhqgxbehh8308-58-13 06:14:00* Test Item Value Reference Range Interpretation [...] - 4.0 Protection probable: Less than 2.7 Wqimcavevf2196-88-70 05:53:00* Test Item Value Reference Range Interpretation [...] code = BASO#) 0.1 thou/uL 0.0-0.2 N Jelxeqmup5005-99-27 19:45:00* Test Item Value Reference Range Interpretation Comments Chemistry (test code = TROPI-T) 0.056 ng/mL < 0.028 H Reference Range 0.00 - 0.028 ng/mL Negative 0.029 - 0.29 ng/mL Indeterminate Greater or Equal to 0.3 ng/mL Strongly suggests IA Jcojrvymy4665-21-76 17:06:00* Test Item Value Reference Range Interpretation Comments Chemistry (test code = TROPI-T) 0.063 ng/mL < 0.028 H Reference Range 0.00 - 0.028 ng/mL Negative 0.029 - 0.29 ng/mL Indeterminate Greater or Equal to 0.3 ng/mL Strongly suggests IA Dvhcwwnemt9568-05-23 15:28:00* Test Item Value Reference Range Interpretation [...] NotDetected Toxicology (test code = MTCUTOFF) The MedTox Profile-V Panel for Qualitative Drugs ofAbuse assays [...] are held fortwo weeks. Urine Source: Urine MzskvdUhgenjhfas3438-66-13 15:22:00* Test Item Value Reference Range Interpretation [...] Negative Negative Urine Source: Urine VoidedChemistry - Jcmssakn6085-87-90 15:05:00* Test Item Value Reference Range Interpretation Comments Chemistry - Specials (test code = TSH3) 0.4726 uIU/mL 0.35-4.94 N Bbkakkjeg3660-11-55 14:45:00* Test Item Value Reference Range Interpretation Comments Chemistry (test code = PHOS) 2.6 mg/dL 2.3-4.7 N Mtvmkbbir8561-22-46 14:45:00* Test Item Value Reference Range Interpretation Comments Chemistry (test code = MG) 1.8 mg/dL 1.6-2.6 N Ujxddldrm2206-69-14 14:17:00* Test Item Value Reference Range Interpretation Comments Chemistry (test code = CCCK) ANUP@1416 Chemistry (test code = CKMBM-T) 7.9 ng/mL 0-6.6 HH Critical value! Chemistry (test code = TROPI-T) 0.042 ng/mL < 0.028 H Reference Range 0.00 - 0.028 ng/mL Negative 0.029 - 0.29 ng/mL Indeterminate Greater or Equal to 0.3 ng/mL Strongly suggests IA Heduccehp5632-07-38 14:14:00* Test Item Value Reference Range Interpretation [...] code = ALT) 29 U/L 8-55 N Lgpjjwnzx6362-19-10 14:14:00* Test Item Value Reference Range Interpretation Comments Chemistry (test code = CK) 1049 U/L 30-200 H Txrhqzawh6238-64-79 14:14:00* Test Item Value Reference Range Interpretation Comments Chemistry (test code = LIP) 54 U/L 8-78 N Cdkizvfzeo4449-84-18 13:39:00* Test Item Value Reference Range Interpretation [...] code = BASO#) 0.1 thou/uL 0.0-0.2 N Vnxarezwi4279-88-47 04:22:00* Test Item Value Reference Range Interpretation Comments Chemistry (test code = TROPI-T) 0.038 ng/mL < 0.028 H Reference Range 0.00 - 0.028 ng/mL Negative 0.029 - 0.29 ng/mL Indeterminate Greater or Equal to 0.3 ng/mL Strongly suggests IA Vsnmnkacd7496-95-08 02:00:00* Test Item Value Reference Range Interpretation [...] code = ALT) 33 U/L 8-55 N Rsdkarcgdk9581-10-81 01:58:00* Test Item Value Reference Range Interpretation [...] code = BASO#) 0.1 thou/uL 0.0-0.2 N Kjtmuqpis1007-87-30 01:41:00* Test Item Value Reference Range Interpretation Comments Chemistry (test code = CCCK) ERS.DEC@0141 Chemistry (test code = CKMBM-T) 7.8 ng/mL 0-6.6 HH Critical value! Chemistry (test code = TROPI-T) 0.048 ng/mL < 0.028 H Reference Range 0.00 - 0.028 ng/mL Negative 0.029 - 0.29 ng/mL Indeterminate Greater or Equal to 0.3 ng/mL Strongly suggests IA [facility] BRODIE BURROUGHS [place] Phys: [place] [address] : 1980 Age: 38 SEX:M [phone] Exam Date: 12/19/18 Status: REG ER Acct: [id number] Loc: [facility] Pt Unit #: [id number] Report #: [id number] CC: Ashok Martinez DO IMAGING SERVICES REPORT Order # Category/Exam [id number] RAD/XR Chest 1 View Portable ([id number]): . Results PORTABLE CHEST: Date: 12/19/18 COMPARISON: 06/07/17. HISTORY: Drug overdose. FINDINGS: Heart size appears slightly enlarged. Mediastinal structures are unremarkable. Lungs are clear of infiltrates. The film is of poor inspiration. IMPRESSION: Borderline heart size, somewhat difficult to assess due to portable technique and poor inspiration. POS: [facility] Reported By: Juno Daniels MD Electronically Signed Date/Time: 12/19/18 0810 Technologist: KALLIE Dictated Date/Time: 12/19/18 0736 Transcribed Date/Time: 12/19/18 0747
[2020-04-24] MEDS ORDERED: CYCLOBENZAPRINE10 MG PO (22:20)
[2020-04-24] MEDS ORDERED: ACETAMINOPHEN 325 MG TAB ONE (22:22)
[2020-04-24] MEDS ORDERED: ACETAMINOPHEN 325 MG TAB PO ONE (22:30)
--- NOTE | 2020-04-24 22:47 | Emergency Department Note ---
History of Present Illnes History of Present Illness Chief Complaint: Flank Pain History of Present Illness This is a 39 year old male who presents with left "kidney pain" since yesterday. Intermittent yesterday, constant today. Worse today. No dysuria, hematuria. Mild diarrhea X 3 days. No melena/hematachezia. No N/V. No F/C. No SOB, cough, sore throat, runny nose, loss of taste/smell. States [facility] told him he has "JAMSHID" and needs to follow up with kidney doctor. Has appointment with kidney doctor on 04/28. 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 Required: No Onset (how long ago): day(s) Location: left low back Quality: dull Radiation: Reports non-radiation Severity: moderate Onset quality: unable to specify Duration (how long): day(s) Timing of current episode: unable to specify Progression: worsening Chronicity: new Context: Reports other (no heavy lifitin); Denies recent illness, Denies trauma/injury Exacerbating factors: movement, other (lay on left side) Associated symptoms: Denies confusion, Denies chest pain, Denies cough, Denies diaphoresis, Denies fever/chills, Denies headaches, Denies loss of appetite, Denies malaise, Denies nausea/vomiting, Denies rash, Denies seizure, Denies shortness of breath, Denies syncope, Denies weakness Past Medical/Family History Physician Review I have reviewed the patient's past medical and family history. Any updates have been documented here. Past Medical History Recent Fever: No Clinical Suspicion of Infectio: No New/Unexplained Change in Ment: No Past Medical History: Diabetes (Non-compliant with metformin), Asthma, Anxiety Other Medical History: renal cell carcinoma Past Surgical History: T&A Other Surgery: right partial nephrectomy Social History Smoking Cessation: Current every day smoker (vapes) Alcohol Use: Occasional Any Illegal Drug Use: No Other Last Tetanus: 09/2019 Review of Systems Review of Systems Constitutional: Denies chills, Denies fever EENTM: Denies nose congestion, Denies throat pain Cardiovascular: Denies chest pain, Denies syncope Respiratory: Denies cough, Denies pain with cough, Denies dyspnea Gastrointestinal: Denies diarrhea, Denies nausea, Denies vomiting Genitourinary: Denies dysuria, Denies hematuria Musculoskeletal: Reports back pain; Denies joint pain, Denies neck pain Integumentary: Denies rash Neurological: Denies headache, Denies numbness, Denies paresthesia Endocrine: Reports increased urination Hematological/Lymphatic: Denies easy bruising Physical Exam Related Data Allergies: Coded Allergies: No Known Allergies (Unverified , 08/30/18) Triage Vital Signs Vital Signs Date Time Temp Pulse Resp B/P (MAP) Pulse Ox O2 Delivery O2 Flow Rate FiO2 04/24/20 21:27 98.6 97 18 126/78 98 Room Air Physical Exam CONSTITUTIONAL Constitutional: Present well-developed, Present well-nourished HENT HENT: Present normocephalic, Present atraumatic, Present oropharynx clear/moist, Present nose normal EYES Eyes: Reports PERRL, Reports conjunctivae normal NECK Neck: Present ROM normal PULMONARY Pulmonary: Present effort normal, Present breath sounds normal CARDIOVASCULAR Cardiovascular: Present regular rhythm, Present heart sounds normal, Present capillary refill normal, Present normal rate GASTROINTESTINAL Abdominal: Present soft, Present nontender, Present bowel sounds normal; Absent left CVA tenderness, Absent right CVA tenderness GENITOURINARY Genitourinary: Present exam deferred SKIN Skin: Absent rash MUSCULOSKELETAL Musculoskeletal: Present tenderness (left paraspinus muscles), Present other (back with no-mid line pain. + spasm of left paraspinus muscles. no pain with straight leg raise.); Absent edema, Absent deformity NEUROLOGICAL Neurological: Present alert, Present oriented x 3, Present no gross motor or s ensory deficits PSYCHOLOGICAL Psychological: Present mood/affect normal, Present judgement normal Results Laboratory Laboratory comments WBC 8.9, HGB 13.6, HCT 42.3, PLT 252, Glu 200< Bun 13, Cr 0.7, K 3.7. UA glu 100, nit neg, fady neg, sg >1.03, satinder neg, ket neg Assessment & Plan Medical Decision Making MDM Differential diagnosis includes, but not limited to: muscle strain/sprain, AAA, kidney stone, pyelonephritis. Obtained blood work to check glu (DM non-compliant with meds) and kidney function (? hx of JAMSHID). Gave APAP and avoided NSAID while awaiting BUN/Cr which improved pain. Glu 200 - agreed to f/u PCP for medication (other than metformin). 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 Assessment & Plan Final Impression: (1) Hyperglycemia (2) Low back pain Depart Disposition: HOME, SELF-CARE Last Vital Signs Date Time Temp Pulse Resp B/P (MAP) Pulse Ox O2 Delivery O2 Flow Rate FiO2 04/24/20 21:27 98.6 97 18 126/78 98 Room Air Home Meds Active Scripts Cyclobenzaprine Hcl (CYCLOBENZAPRINE HCL) 10 Mg Tablet, 10 MG PO TID, #14 TAB Prov:KEELEY CORTEZ MD 04/24/20 Tramadol Hcl* (ULTRAM 50MG*) 50 Mg Tab, 50 MG PO Q6H PRN for pain, #30 TAB Prov:ALVINO HUMPHRIES MD 03/29/20 Ibuprofen (IBUPROFEN IB) 200 Mg Tablet, 3 TAB PO Q6H PRN for pain, #60 Prov:ALVINO HUMPHRIES MD 03/29/20 Tizanidine Hcl (ZANAFLEX) 4 Mg Tablet, 1 TAB PO Q8H PRN for back pain, #30 Prov:ALVINO HUMPHRIES MD 03/29/20 Cefdinir (OMNICEF) 300 Mg Capsule, 300 MG PO BID, #20 CAP Prov:JANELLE CRAWFORD 02/20/20 Naproxen (NAPROSYN) 500 Mg Tablet, 500 MG PO BID, #20 TAB Prov:JANELLE CRAWFORD 11/09/19 Sulfamethoxazole/Trimethoprim (BACTRIM DS TABLET) 1 Each Tablet, 1 TAB PO BID for 10 Days, #20 TAB Prov:JANELLE CRAWFORD 11/09/19 Reported Medications Diazepam (VALIUM) 5 Mg Tablet, PRN for ANXIETY 11/09/19 Metformin Hcl (METFORMIN HCL) 500 Mg Tablet, 500 MG PO BID, #60 TAB 11/09/19 KEELEY CORTEZ MD Apr 24, 2020 22:17
== END 2020-04-24 22:38 | disposition home or self-care (01) ==
LOC: FSED 21:49
DX: M54.5 Low back pain (principal); E11.65 Type 2 diabetes mellitus with hyperglycemia; F41.9 Anxiety disorder, unspecified; J45.909 Unspecified asthma, uncomplicated; Z85.53 Personal history of malignant neoplasm of renal pelvis
CPT/HCPCS: 80053; 81003; 85025; 99283

== ENCOUNTER 2020-06-04 16:52 | Emergency (ER) | payer BC ==
[~2020-06-04] VITALS: Ht 195.6 cm; Wt 117.7 kg
[~2020-06-04 16:52] MED LIST changes: +CYCLOBENZAPRINE10 MG PO
[2020-06-04] MEDS ORDERED: SODIUM CHLORIDE 0.9% 1000ML 1,000 ML IV STA (17:18)
[2020-06-04 18:35] VITALS: BP 175/90
== END 2020-06-04 18:24 | disposition home or self-care (01) ==
LOC: FSED 17:10
DX: J06.9 Acute upper respiratory infection, unspecified (principal); R05 Cough; E11.65 Type 2 diabetes mellitus with hyperglycemia; J45.909 Unspecified asthma, uncomplicated; F41.9 Anxiety disorder, unspecified; F17.210 Nicotine dependence, cigarettes, uncomplicated
CPT/HCPCS: 36415; 71046; 81003; 82948; 93005; 99283